=== PATIENT | male | born 1960 | race Caucasian/White ===

== ENCOUNTER 2019-04-30 08:11 | Emergency (ER) | payer SELFPAY ==
[2019-04-30 08:16] VITALS: BP 176/119; PULSE 83; RESP 18; TEMP 36.4; O2SAT 96; BMI 25.0
[2019-04-30 08:27] VITALS: BP 176/119; PULSE 81; RESP 18; O2SAT 98
--- NOTE | 2019-04-30 08:30 | PC.NURSE ---
Pt has had a rash for quite a few weeks. Pt has been treated for scabies, with no results of getting better. Today pt comes to ER d/t left ankle pain with swelling that started last night.
--- NOTE | 2019-04-30 08:32 | W.ED.EXTPRO ---
HPI - Extremity Problem General: Chief complaint: Extremity Problem,Nontraumatic Stated complaint: Left ankle pain Time Seen by Provider: 04/30/19 08:16 Source: patient Mode of arrival: ambulatory Limitations: no limitations History of Present Illness: HPI Narrative: Patient comes in with a persistent rash for the last 4 to 6 months. Patient was seen back on April 07 and diagnosed with some cellulitis in the rash on the left leg. Patient reports that it had improved and over the past few days it has been worse. Patient complains of some pain in the left lower extremity. Noting an abrasion rash to the anterior lower legs and bilateral forearms. Patient denies any drug use or chronic medical problems. Patient appears well. Patient appears in mild to moderate discomfort. Review of Systems General: Reports: 10 or more systems reviewed and unremarkable except in HPI and below Skin/Breast: Reports: itching and changing lesion PFSH ED PFSH: Statuses (acute, chronic, etc) shown below reflect problem list status as previously entered and may not be historically accurate Social History Smoking and tobacco status: current every day smoker Physical Exam Const: COMMON NORMALS: no apparent distress and oriented x3 GENERAL APPEARANCE: cooperative HENMT: COMMON NORMALS: normocephalic, external ears normal, EAC's normal, TM's normal bilaterally and external nose normal HEAD & SCALP: normal to inspection and normocephalic FACE & SINUS: normal facial exam NOSE: external nose normal GENERAL EAR: hearing not grossly impaired EXTERNAL EAR: Yes external ears normal EXTERNAL AUDITORY CANAL: EAC's normal TYMPANIC MEMBRANE: TM's normal bilaterally MOUTH: oral and palatal mucosa normal THROAT: posterior oropharynx normal Eye: COMMON NORMALS: PERRL and EOMs intact bilaterally PUPIL: Yes PERRL Neck/C-Spine: COMMON NORMALS: full ROM and no lymphadenopathy Lymph: LYMPHATIC: no lymphedema noted Chest: COMMONS NORMALS: inspection of chest normal and palpation of chest normal Resp: COMMON NORMALS: normal respiratory effort and clear to auscultation bilaterally AUSCULTATION: clear to auscultation bilaterally Cardio: COMMON NORMALS: regular rate and regular rhythm RATE: regular rate RHYTHM: regular rhythm GI: COMMON NORMALS: normal to inspection, nondistended, normoactive bowel sounds and non-tender : COMMON NORMALS: Yes no CVA tenderness BLADDER/KIDNEY EXAM: Yes no CVA tenderness Back/Pelvis: COMMON NORMALS: no CVA tenderness and thoracic and lumbar spine normal to inspection Extremity: COMMON NORMALS: normal to inspection GENERAL: No edema Neuro: COMMON NORMALS: oriented x3, moves all extremities and no focal motor deficits Psych: COMMON NORMALS: mental status grossly normal and cooperative Skin: GENERAL SKIN EXAM: lichenification RASHES: rashes noted Course Vital Signs: Vital signs: Vital Signs Temperature 97.5 F L 04/30/19 08:16 Pulse Rate 82 04/30/19 09:36 Respiratory Rate 16 04/30/19 09:36 Blood Pressure 172/106 04/30/19 09:36 Pulse Oximetry 99 04/30/19 09:36 MDM - Extremity (Nontraumatic) MDM Narrative: Medical decision making narrative: Patient comes in today for complaints of rash to the upper and lower extremities. Exam notes excoriated areas to the skin with several abrasions suggestive of scratching and picking. Some redness and swelling is noted to the left lower extremity around the ankle area. Pulses are intact prompt capillary refill is noted elsewhere. Differential diagnosis includes neurodermatitis, second cellulitis, eczema, gout, chronic liver disease, chronic kidney disease, autoimmune disorder. Laboratory values were insignificant. Gout was ruled out by uric acid of 4, white count was fairly normal. Patient does have a blood mild low sodium at 132 which the last one was 134 so very similar. CRP was normal and TSH was normal. Reviewed exam with patient I believe patient probably has a neurodermatitis or eczema we will treat for secondary cellulitis to the left lower leg. Reviewed exam with patient with recommendations for treatment and follow-up. Will ask case management to help with referral to dermatology for further evaluation if symptoms persist. Patient reports understanding and agrees to plan. Lab Data: Labs: Lab Results 04/30/19 04/30/19 Range/Units 08:48 08:48 WBC 8.8 (4.0-10.0) 10^3/ uL RBC 4.78 (4.1-5.3) 10^6/u L Hgb 13.2 (11.7-16.6) g/dL Hct 39.9 L (42.0-52.0) % MCV 83.5 (80-94) fL MCH 27.6 L (28.0-34.0) pg MCHC 33.1 (30.0-36.0) g/dL RDW 13.1 (12.1-15.1) % Plt Count 258 (130-400) 10^3/c mm MPV 9.7 (7.4-10.4) fL Neut % (Auto) 69.1 % Lymph % (Auto) 18.1 % [place] % (Auto) 10.1 % Eos % (Auto) 1.9 % Baso % (Auto) 0.6 % Neut # (Auto) 6.1 (1.8-7.7) 10^3/u L Lymph # (Auto) 1.6 (0.8-4.8) 10^3/u L [place] # (Auto) 0.9 (0.2-0.9) 10^3/u L Eos # (Auto) 0.2 (0.0-0.8) 10^3/u L Baso # (Auto) 0.1 (0.0-0.1) 10^3/u L Nucleated RBC % (a uto) 0 % Nucleated RBCs # 0.0 /100WBC Sodium 132 L (136-145) mmol/L Potassium 3.9 (3.5-5.1) mmol/L Chloride 98 (98-107) mmol/L Carbon Dioxide 23 (22-29) mmol/L Anion Gap 14.9 (5-19) BUN 17 (6-20) mg/dL Creatinine 0.9 (0.7-1.2) mg/dL GFR Calculation 86.7 L (90-130) mL/min Glucose 140 H (74-109) mg/dL Uric Acid 4.0 (3.4-7.0) mg/dL Calcium 9.7 (8.6-10.0) mg/Dl Total Bilirubin 0.3 (0.15-1.2) mg/dL AST 33 (0-40) U/L ALT 30 (0-41) U/L Alkaline Phosphata se 172 H (40-130) IU/L C-Reactive Protein 4.7 (0.0-4.9) mg/L Total Protein 8.7 (6.6-8.7) g/dL Albumin 3.9 (3.5-5.2) g/dL Globulin 4.8 H (1.3-4.6) g/dL TSH 2.46 (0.27-4.20) uIU/ mL Discharge Plan Discharge Patient Disposition: Home, Self-Care Clinical Impression: Atopic neurodermatitis Cellulitis Qualifiers: Site of cellulitis: extremity Site of cellulitis of extremity: lower extremity Laterality: left Qualified Code(s): L03.116 - Cellulitis of left lower limb Condition: Stable Prescriptions: New triamcinolone acetonide 0.1 % cream 1 applic TOPICAL BID Qty: 80 RF: 1 hydroxyzine HCl 25 mg tablet 25 mg PO Q4H PRN (Reason: itching) Qty: 60 RF: 0 Bactrim DS 800-160 mg tablet 1 tab PO BID 14 Days Qty: 28 RF: 0 prednisone 20 mg tablet 20 mg PO DAILY Qty: 14 RF: 0 Tylenol-Codeine #3 300-30 mg tablet 1 tab PO Q6H PRN (Reason: pain) Qty: 10 RF: 0 Discharge Diet: Usual diet Discharge Activity: Resume usual activity Activity Restrictions/Additional Instructions: Drink plenty of water with medication Use vaseline to skin for protectant, and comfort Cover wound with non stick dressing Do not use over the counter antibiotic ointments Take medications as directed Use acetaminophen and ibuprofen as needed for pain Follow-up with primary care in one week for recheck Case management will contact you with Dermatology appointment for further evaluation Discharge Date/Time: 04/30/19 09:37 Coding Level of Care Code ED 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
[2019-04-30] MEDS: sulfamethoxazole-trimeth DS 160-800 mg Tablet 1 TAB PO (08:44)
[2019-04-30] MEDS: dexamethasone 10 mg/mL INJ IM (08:49)
[2019-04-30] MEDS: ketorolac 30 mg/mL INJ IM (08:50)
[2019-04-30 08:54] LABS: Basophils # 0.1 10^3/uL (0.0-0.1); Basophils % 0.6 %; Eosinophils # 0.2 10^3/uL (0.0-0.8); Eosinophils % 1.9 %; Hematocrit 39.9 % (42.0-52.0); Hemoglobin 13.2 g/dL (11.7-16.6); Lymphocytes # 1.6 10^3/uL (0.8-4.8); Lymphocytes % 18.1 %; Mean Corpuscular HGB Conc 33.1 g/dL (30.0-36.0); Mean Corpuscular Hemoglobin 27.6 pg (28.0-34.0); Mean Corpuscular Volume 83.5 fL (80-94); Mean Platelet Volume 9.7 fL (7.4-10.4); Monocytes # 0.9 10^3/uL (0.2-0.9); Monocytes % 10.1 %; Neutrophils # 6.1 10^3/uL (1.8-7.7); Neutrophils % 69.1 %; Nucleated Red Blood Cells % 0 %; Platelet Count 258 10^3/cmm (130-400); Red Blood Count 4.78 10^6/uL (4.1-5.3); Red Cell Distribution Width 13.1 % (12.1-15.1); White Blood Count 8.8 10^3/uL (4.0-10.0)
--- NOTE | 2019-04-30 09:16 | PC.NURSE ---
Nurse dressed pt's rash on his lower legs with 10 vasaline gauze 3X9, and two kerlix gauze, per Oral Brewster NP.
[2019-04-30 09:19] LABS: Alanine Aminotransferase 30 U/L (0-41); Albumin Level 3.9 g/dL (3.5-5.2); Alkaline Phosphatase 172 IU/L (40-130); Anion Gap 14.9 (5-19); Aspartate Amino Transferase 33 U/L (0-40); Blood Urea Nitrogen 17 mg/dL (6-20); C Reactive Protein 4.7 mg/L (0.0-4.9); Calcium 9.7 mg/Dl (8.6-10.0); Carbon Dioxide 23 mmol/L (22-29); Chloride 98 mmol/L (98-107); Globulin 4.8 g/dL (1.3-4.6); Glomerular Filtration Rate 86.7 mL/min (90-130); Glucose 140 mg/dL (74-109); Potassium 3.9 mmol/L (3.5-5.1); Sodium 132 mmol/L (136-145); Thyroid Stimulating Hormone 2.46 uIU/mL (0.27-4.20); Total Bilirubin 0.3 mg/dL (0.15-1.2); Total Protein 8.7 g/dL (6.6-8.7)
[2019-04-30 09:36] VITALS: BP 172/106; PULSE 82; RESP 16; O2SAT 99
== END 2019-04-30 09:37 | disposition home or self-care (01) ==
PROVIDERS: Emergency Provider Nurse Practitioner Family
DX: L20.81 Atopic neurodermatitis (principal); L03.116 Cellulitis of left lower limb; F17.210 Nicotine dependence, cigarettes, uncomplicated
CPT/HCPCS: 36415; 80053; 84443; 84550; 85025; 86140; 87040; 96372; 99281; J1100; J1885

== ENCOUNTER 2019-09-25 16:43 | Emergency (ER) | payer SELFPAY ==
[2019-09-25 16:48] VITALS: BP 171/93; PULSE 70; RESP 16; TEMP 36.4; O2SAT 97; BMI 27.1
--- NOTE | 2019-09-25 17:14 | ED_ITS ---
HPI - Skin/Abscess/Foreign Bdy General: Chief complaint: Skin/Abscess/Foreign Body Stated complaint: leg pain Time Seen by Provider: 09/25/19 17:03 History of Present Illness: MD complaint: rash Onset (ago): month(s) Tetanus up to date: unsure Location: neck, back, LLE and RLE Severity: moderate Severity scale (1-10): 3 Quality: constant (Did improve with medications) Associated symptoms: Deny chills, fever(s), nausea or vomiting Review of Systems Const: Denies: fever(s), chills or body aches Eyes: Denies: change in vision or blurry vision ENMT: Denies: throat pain or nasal congestion Card: Denies: chest pain or dyspnea on exertion Resp: Denies: dyspnea, productive cough or non-productive cough GI: Denies: abdominal pain, nausea or vomiting : Denies: difficulty urinating Musc: Denies: extremity pain Skin/Breast: Reports: rash (Has a macular rash small lesions approximately 3 to 5 mm in size scattered on the lower legs middle the back neck some open and draining from the itching is done) Neuro: Denies: headache(s) Psych: Denies: anxiety or depression [place]/Lymph: Denies: easy bruising PFSH ED PFSH: Social History Smoking and tobacco status: current every day smoker Physical Exam Const: COMMON NORMALS: no acute distress, average body habitus and patient oriented x3 HENMT: COMMON NORMALS: normocephalic HEAD & SCALP: normal to inspection and normocephalic FACE & SINUS: normal facial exam Eye: COMMON NORMALS: conjunctivae normal GENERAL EYE: appearance normal, both eyes and all related structures CONJUNCTIVA: Yes conjunctivae normal Neck/C-Spine: COMMON NORMALS: no JVD Chest: COMMONS NORMALS: normal inspection of the chest Resp: COMMON NORMALS: normal respiratory effort and clear to auscultation bi laterally AUSCULTATION: clear to auscultation bilaterally Cardio: COMMON NORMALS: no JVD, regular rate and regular rhythm RATE: regular rate RHYTHM: regular rhythm GI: COMMON NORMALS: Normal to inspection, nondistended, normoactive bowel sounds present Extremity: COMMON NORMALS: normal to inspection and full ROM Neuro: COMMON NORMALS: patient oriented x3 Skin: NAILS: other (Rash described in HPI small 3 to 5 mm satellite macular lesions scattered up and on the legs with wounds on right leg draining no erythema then he has them up and down his back and middle of his spine and then also on his neck posterior aspect) Course Vital Signs: Vital signs: Vital Signs Temperature 97.5 F L 09/25/19 16:48 Pulse Rate 70 09/25/19 16:48 Respiratory Rate 16 09/25/19 16:48 Blood Pressure 171/93 09/25/19 16:48 Pulse Oximetry 97 09/25/19 16:48 Discharge Plan Discharge Patient Disposition: Home, Self-Care Clinical Impression: Atopic dermatitis Qualifiers: Atopic dermatitis type: unspecified Qualified Code(s): L20.9 - Atopic dermatitis, unspecified Condition: Stable Prescriptions: New hydroxyzine HCl 25 mg tablet 25 mg PO Q8H PRN (Reason: itching) Qty: 14 RF: 0 prednisone 20 mg tablet 20 mg PO DAILY Qty: 14 RF: 0 triamcinolone acetonide 0.1 % cream 1 applic TOPICAL BID Qty: 80 RF: 0 Bactrim DS 800-160 mg tablet 1 tab PO BID 7 Days Qty: 14 RF: 0 No Action triamcinolone acetonide 0.1 % cream 1 applic TOPICAL BID Qty: 80 RF: 1 hydroxyzine HCl 25 mg tablet 25 mg PO Q4H PRN (Reason: itching) Qty: 60 RF: 0 prednisone 20 mg tablet 20 mg PO DAILY Qty: 14 RF: 0 Tylenol-Codeine #3 300-30 mg tablet 1 tab PO Q6H PRN (Reason: pain) Qty: 10 RF: 0 Discharge Orders: Discharge Order (Routine); Ordered 09/25/19 Ordered By: Berny Gomez Discharge Diet: Usual diet Discharge Activity: Resume usual activity Patient Instructions: Stasis Dermatitis (ED) Activity Restrictions/Additional Instructions: Follow-up with medical provider as directed. Take medications as prescribed. Return to the ER or your medical provider if condition worsens. Please read and understand discharge instructions. If any questions ask please. 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
[2019-09-25 17:19] VITALS: BP 127/75; PULSE 79; RESP 16; TEMP 36.8; O2SAT 97
== END 2019-09-25 17:20 | disposition home or self-care (01) ==
PROVIDERS: Emergency Provider Nurse Practitioner Family
DX: L20.9 Atopic dermatitis, unspecified (principal); F17.210 Nicotine dependence, cigarettes, uncomplicated
CPT/HCPCS: 12345; 99281; 99282

== ENCOUNTER 2020-11-25 19:40 | Inpatient (IN) | payer MEDICAID, SELFPAY ==
[2020-11-25] VITALS (8 sets, daily range): BP systolic 119–158; BP diastolic 74–80; PULSE 84–98; RESP 20–40; TEMP 38–38.1; O2SAT 89–95; BMI 27.1
--- NOTE | 2020-11-25 20:01 | W.ED.COVID ---
HPI - COVID General: Chief Complaint: COVID symptoms Stated Complaint: Covid Symptoms Time Seen by Provider: 11/25/20 20:00 Triage information: Has fever, cough or shortness of breath. Exposure to COVID + person last 14 days History of Present Illness: HPI Narrative: Mr. Ward is a 60-year-old gentleman without significant past medical history presents to the emergency department due to Covid-like symptoms. Symptom onset was approximately 1 week ago and subacute in onset. He describes generalized aches, fevers, chills, malaise, shortness of breath, and a dry cough. His symptoms are worse with any exertion and he feels profound fatigue. Overall the intensity of symptoms is moderate to severe. The course has been worsening. He has not been vaccinated for Covid and has not been tested for Covid. He denies known sick contacts. No other specific exacerbating alleviating factors identified. He is a smoker. No major surgeries. COVID Results: SARS-CoV-2 Antigen (Rapid) Positive (Negative) H 11/25/20 20:45 11/25/20 Nasal/Oral Coronavirus 2019 PCR Pending 11/25/20 20:45 11/25/20 Review of Systems General: Reports: 10 or more systems reviewed and unremarkable except in HPI and below Narrative: CONSTITUTIONAL: Positive for fever, fatigue, weakness EYES - denies pain, denies loss of vision EARS - denies ear issues. NOSE - denies congestion or rhinorrhea. THROAT - denies sore throat or difficulty swallowing. CARDIOVASCULAR - denies chest pain and palpitations RESPIRATORY -positive for shortness of breath and cough GASTROINTESTINAL - denies abdominal pain, no nausea vomiting, no changes in bowel habits GENITOURINARY - denies dysuria or urinary frequency MUSCULOSKELETAL- denies deformity or pain SKIN - denies rashes or new changed skin lesions NEUROLOGIC - denies focal weakness or sensory changes HEMATOLOGIC/LYMPHATIC - denies easy bruising or lymphadenopathy. [facility] ED PFSH: Medical History (Updated 11/26/20 @ 12:01 by Gerry Hannah MD) GERD (gastroesophageal reflux disease) Nicotine dependence, cigarettes, uncomplicated Surgical History (Updated 11/26/20 @ 00:47 by Thu Singh MD) No pertinent past surgical history Family History (Updated 11/26/20 @ 01:04 by Thu Singh MD) Denies family history of CAD (coronary artery disease) Bleeding disorder Lung disease Social History (Updated 11/26/20 @ 01:04 by Thu Singh MD) Smoking and tobacco status: current every day smoker Alcohol intake: never Substance/Drug Use: never Household members: spouse Marital status: Physical Exam Narrative: EXAM NARRATIVE: GENERAL/CONSTITUTIONAL -moderately ill-appearing. No acute distress. Increased respiratory effort Eyes - PERRL, no conjunctival injection ENMT - Atraumatic external nose and ears. Moist mucous membranes NECK - supple. trachea midline CARDIOVASCULAR - regular rate and rhythm. Peripheral pulses 2+ and equal RESPIRATORY -coarse breath sounds to auscultation bilaterally. No retractions or accessory muscle use. ABDOMEN/GI - Nontender/Nondistended. No tenderness to percussion or evidence of peritonitis MSK - Extremities without obvious deformity or tenderness to palpation SKIN -somewhat mottled, dry NEURO - alert and appropriately oriented. strength and sensation intact. Moves all extremities equally. PSYCH - Appropriate mood and affect Course ED course: - Patient was seen and evaluated by me at bedside - Patient placed on cardiac monitors, IV access obtained - Initial evaluation notable for ill appearance, mottled skin, increased respiratory effort - Labs and imaging obtained and reviewed -Symptom treatments ordered - Labs notable for Mild leukopenia and thrombocytopenia of unclear etiology, likely related to Covid infection. CRP elevated. Procalcitonin negative. Rapid Covid testing positive. - Imaging notable for bilateral infiltrate worse in the right upper lobe - Upon serial reexamination after treatment the patient was similar, he did require heated high flow oxygen for work of breathing - Based on patient history, evaluation, labs, and imaging as interpreted the most likely cause of the patient's condition is COVID-19 with respiratory distress and hypoxemia - The results of ED evaluation were discussed with the patient including plan for admission due to requirement for level of care not available if discharged to prevent significant worsening/deterioration. -Hospitalist service contacted and agreed to admit the patient - Patient was admitted without further deterioration or significant events. Vital Signs: Vital signs: Vital Signs Temperature 97.8 F 11/27/20 12:00 Pulse Rate 79 11/27/20 14:32 Respiratory Rate 20 H 11/27/20 14:32 Blood Pressure 126/77 11/27/20 12:00 Pulse Oximetry 91 11/27/20 14:32 MDM - COVID Medical Records: Attestation: I reviewed the patient's medical records. Lab Data: Attestation: I reviewed the patient's lab results. Labs: Lab Results 11/25/20 11/25/20 11/25/20 Range/Units 20:45 21:00 21:00 WBC 3.6 L (4.0-10.0) 10^3/ uL RBC 4.91 (4.1-5.3) 10^6/u L Hgb 15.1 (11.7-16.6) g/dL Hct 44.8 (42.0-52.0) % MCV 91.2 (80-94) fl MCH 30.8 (28.0-34.0) pg MCHC 33.7 (30.0-36.0) g/dL RDW 13.7 (12.1-15.1) % Plt Count 68 L (130-400) 10^3/c mm MPV 11.0 H (7.4-10.4) fL Neut % (Auto) 65.0 % Lymph % (Auto) 28.3 % [place] % (Auto) 5.8 % Eos % (Auto) 0.0 % Baso % (Auto) 0.3 % Neut # (Auto) 2.34 (1.8-7.7) 10^3/u L Lymph # (Auto) 1.0 (0.8-4.8) 10^3/u L [place] # (Auto) 0.2 (0.2-0.9) 10^3/u L Eos # (Auto) 0.0 (0.0-0.8) 10^3/u L Baso # (Auto) 0.0 (0.0-0.1) 10^3/u L Nucleated RBC % (a uto) 0 % Nucleated RBCs # 0.0 /100WBC Sodium 133 L (136-145) mmol/L Potassium 4.5 (3.5-5.1) mmol/L Chloride 98 (98-107) mmol/L Carbon Dioxide 24 (22-29) mmol/L Anion Gap 15.5 (5-19) BUN 15 (6-20) mg/dL Creatinine 0.9 (0.7-1.2) mg/dL GFR Calculation 86.4 L (90-130) mL/min Glucose 108 (65-115) mg/dL Calculated Osmolal ity 277 L (285-295) mOsm/k g Lactic Acid (0.5-2.2) mmol/L Calcium 8.1 L (8.5-10.5) mg/dL Total Bilirubin 0.3 (0.15-1.2) mg/dL AST 67 H (0-40) U/L ALT 34 (0-41) U/L Alkaline Phosphata se 139 H (40-130) IU/L Troponin T Baselin e (0-15) ng/L Troponin T 120 Min [place] (0-15) ng/L Delta Troponin T (0-10) ABS# C-Reactive Protein 43.1 H (0.0-4.9) mg/L NT-Pro-B Natriuret Pep 31 (0-125) pg/mL Total Protein 7.7 (6.6-8.7) g/dL Albumin 3.7 (3.5-5.2) g/dL Globulin 4.0 (1.3-4.6) g/dL Procalcitonin 0.11 (0-0.5) ng/mL SARS-CoV-2 Ag (Rap id) Positive H (Negative) 11/25/20 11/25/20 11/25/20 Range/Units 21:00 21:00 23:08 WBC (4.0-10.0) 10^3/ uL RBC (4.1-5.3) 10^6/u L Hgb (11.7-16.6) g/dL Hct (42.0-52.0) % MCV (80-94) fl MCH (28.0-34.0) pg MCHC (30.0-36.0) g/dL RDW (12.1-15.1) % Plt Count (130-400) 10^3/c mm MPV (7.4-10.4) fL Neut % (Auto) % Lymph % (Auto) % [place] % (Auto) % Eos % (Auto) % Baso % (Auto) % Neut # (Auto) (1.8-7.7) 10^3/u L Lymph # (Auto) (0.8-4.8) 10^3/u L [place] # (Auto) (0.2-0.9) 10^3/u L Eos # (Auto) (0.0-0.8) 10^3/u L Baso # (Auto) (0.0-0.1) 10^3/u L Nucleated RBC % (a uto) % Nucleated RBCs # /100WBC Sodium (136-145) mmol/L Potassium (3.5-5.1) mmol/L Chloride (98-107) mmol/L Carbon Dioxide (22-29) mmol/L Anion Gap (5-19) BUN (6-20) mg/dL Creatinine (0.7-1.2) mg/dL GFR Calculation (90-130) mL/min Glucose (65-115) mg/dL Calculated Osmolal ity (285-295) mOsm/k g Lactic Acid 1.3 (0.5-2.2) mmol/L Calcium (8.5-10.5) mg/dL Total Bilirubin (0.15-1.2) mg/dL AST (0-40) U/L ALT (0-41) U/L Alkaline Phosphata se (40-130) IU/L Troponin T Baselin e 11 (0-15) ng/L Troponin T 120 Min [place] 11.19 (0-15) ng/L Delta Troponin T 0.19 (0-10) ABS# C-Reactive Protein (0.0-4.9) mg/L NT-Pro-B Natriuret Pep (0-125) pg/mL Total Protein (6.6-8.7) g/dL Albumin (3.5-5.2) g/dL Globulin (1.3-4.6) g/dL Procalcitonin (0-0.5) ng/mL SARS-CoV-2 Ag (Rap id) (Negative) EKG Data: EKG 1: Attestation: I personally reviewed and interpreted this EKG as follows: EKG interpretation date: 11/25/20 EKG interpretation time: 20:05 Prior EKG tracings: not available for review Interpretation: Twelve-lead EKG shows a regular sinus rhythm at a rate of 90. ND interval 92, QRS duration 87, QTc 407. Interpretation: Sinus rhythm. Short ND interval. EKG 2: Attestation: I personally reviewed and interpreted this EKG as follows: EKG interpretation date: 11/25/20 EKG interpretation time: 22:15 Interpretation: Twelve-lead EKG shows a regular sinus rhythm at a rate of 89. ND interval 127, QRS duration 87, QTc 418. Interpretation: Sinus rhythm. 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
--- NOTE | 2020-11-25 20:06 | XRR_ITS ---
PROCEDURE INFORMATION: Exam: XR Chest Exam date and time: 11/25/2020 8:06 PM Age: 60 years old Clinical indication: Shortness of breath; Patient HX: Covid; Additional info: SOB TECHNIQUE: Imaging protocol: XR of the chest. Views: 1 view. COMPARISON: CT Cervical Spine wo* [id number] 03/06/2015 7:40 PM FINDINGS: Lungs: Right apical opacification either related to scarring or consolidation. There is also suggestion of peripheral opacities in asymmetric volume loss of the right lung. Findings are non-specific could relate to atelectasis/scarring or multifocal consolidations. Pleural spaces: Unremarkable. No pleural effusion. No pneumothorax. Heart/Mediastinum: Unremarkable. No cardiomegaly. Bones/joints: Visualized osseous structures are intact. XR/XR chest 1V portable [id number] IMPRESSION: Asymmetric volume loss and opacifications along the periphery of the right lung in the right lung apex. Findings nonspecific and could indicate scarring/atelectasis or potentially multifocal consolidations.
--- NOTE | 2020-11-25 20:07 | ECG_ITS ---
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 Measurements Intervals [place] Rate: 90 P: -39 MN: 92 QRS: -4 QRSD: 87 T: 78 QT: 332 QTc: 407 Interpretive Statements SINUS RHYTHM WITH SHORT [place] INTERVAL POSSIBLE RIGHT VENTRICULAR CONDUCTION DELAY [RSR (QR) IN V1/V2] No previous ECG available for comparison Electronically Signed On 11-25-2020 23:59:31 CDT by Jerome Wing M.D. [id number]
[2020-11-25] MEDS: albuterol 8 gm MDI 6 PUFF INHALATION (20:50)
[2020-11-25] MEDS: lactated ringers 1,000 ML 999 ML IV (21:02)
[2020-11-25 21:17] LABS: Basophils % 0.3 %; Hematocrit 44.8 % (42.0-52.0); Hemoglobin 15.1 g/dL (11.7-16.6); Lymphocytes % 28.3 %; Mean Corpuscular HGB Conc 33.7 g/dL (30.0-36.0); Mean Corpuscular Hemoglobin 30.8 pg (28.0-34.0); Mean Corpuscular Volume 91.2 fl (80-94); Monocytes # 0.2 10^3/uL (0.2-0.9); Monocytes % 5.8 %; Neutrophils # 2.34 10^3/uL (1.8-7.7); Nucleated Red Blood Cells % 0 %; Platelet Count 68 10^3/cmm (130-400); Red Blood Count 4.91 10^6/uL (4.1-5.3); Red Cell Distribution Width 13.7 % (12.1-15.1); White Blood Count 3.6 10^3/uL (4.0-10.0)
[2020-11-25 21:37] LABS: Lactic Sepsis W/Reflex 1.3 mmol/L (0.5-2.2)
[2020-11-25 21:39] LABS: Troponin(5th) Baseline 11 ng/L (0-15)
[2020-11-25 21:47] LABS: Alanine Aminotransferase 34 U/L (0-41); Albumin Level 3.7 g/dL (3.5-5.2); Alkaline Phosphatase 139 IU/L (40-130); Anion Gap 15.5 (5-19); Aspartate Amino Transferase 67 U/L (0-40); Blood Urea Nitrogen 15 mg/dL (6-20); C Reactive Protein 43.1 mg/L (0.0-4.9); Calcium 8.1 mg/dL (8.5-10.5); Carbon Dioxide 24 mmol/L (22-29); Chloride 98 mmol/L (98-107); Glomerular Filtration Rate 86.4 mL/min (90-130); Glucose 108 mg/dL (65-115); Osmolality Calculated 277 mOsm/kg (285-295); Potassium 4.5 mmol/L (3.5-5.1); Slide Review Slide Review Perform; Sodium 133 mmol/L (136-145); Total Bilirubin 0.3 mg/dL (0.15-1.2); Total Protein 7.7 g/dL (6.6-8.7)
[2020-11-25] MEDS: acetaminophen 500 mg Tablet 1000 MG PO (21:47)
[2020-11-25 21:55] LABS: SARS Covid-2 Antigen Positive (Negative)
[2020-11-25] MEDS: ondansetron 2 mg/ML SDV 2 mL 4 MG IVP (22:04)
[2020-11-25] MEDS: morphine 4 mg/mL SDV 1 mL IVP (22:04)
--- NOTE | 2020-11-25 22:07 | ECG_ITS ---
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 Measurements Intervals [place] Rate: 89 P: -5 WV: 127 QRS: -4 QRSD: 87 T: 85 QT: 343 QTc: 418 Interpretive Statements SINUS RHYTHM POSSIBLE RIGHT VENTRICULAR CONDUCTION DELAY [RSR (QR) IN V1/V2] NONSPECIFIC T-WAVE ABNORMALITY Compared to ECG 11/25/2020 20:03:27 T-wave abnormality now present Short [place] interval no longer present Electronically Signed On 11-26-2020 0:11:15 CDT by Jerome Wing M.D. [email or web address]
--- NOTE | 2020-11-25 22:16 | PC.NURSE ---
OXYGEN INCREASED TO 4 L/NC. RESPIRATORY PAGED TO COME EVALUATE PT FOR HEATED, HI-FLOW OXYGEN PER DR SOLIS.
[2020-11-25 22:28] LABS: NT Pro B Type Natriuretic Pept 31 pg/mL (0-125)
[2020-11-25 22:56] LABS: Procalcitonin 0.11 ng/mL (0-0.5)
[2020-11-25 23:31] LABS: Troponin 5 2HR 11.19 ng/L (0-15); Troponin 5 2HR Delta 0.19 ABS# (0-10)
--- NOTE | 2020-11-25 23:33 | P.HP_ITS ---
Providers/Chief Complaint Admitting Physician: Thu Singh Primary Care Provider: none Chief Complaint: Covid Symptoms History of Present Illness Brian Ward is a 60 year old male who presented to the emergency room with chief complaint of about a week of upper respiratory symptoms and general malaise. His has had Covid and by report has recovered from it. He has had progressively worsening symptoms and today got to the point that his breathing was worse and he was having some right-sided chest pain. He admits to fevers, generalized aches and pains, headache, loss of taste and smell, nasal and chest congestion. He has been short of breath initially just with exertion but more recently at rest. Not chronically on oxygen. He is a known smoker. Reports he has not had much to smoke in the last few days, may be a week because of his symptoms. Denied any pleuritic type pain or hemoptysis. He has not received a Covid vaccination. On arrival here, he was febrile at 100.5 ?F. He was also hypoxic and oxygen saturation in the upper 80s. He was originally pl aced on oxygen by nasal cannula in the emergency room up to 4 L but ultimately transitioned to heated high flow with a flow rate of 45 L and FiO2 of 55% with improvement in his saturations. Rapid Covid antigen was positive. He is being admitted for further care of pneumonia secondary to COVID-19 necessitating high flow oxygen. Review of Systems Const: Reports: fever(s), chills, body aches, fatigue and malaise Eyes: Denies: blurry vision or eye discomfort ENMT: Reports: throat pain, nasal congestion and other (loss of taste and smell) Card: Reports: chest pain (right sided chest pain, sharp, none present during my exam), lightheadedness, dyspnea on exertion and orthopnea; Denies: palpitations, edema, syncope or acrocyanosis Resp: Reports: dyspnea, productive cough, non-productive cough and chest congestion; Denies: pain on inspiration or hemoptysis GI: Reports: nausea; Denies: abdominal pain, vomiting, hematemesis, diarrhea or constipation : Denies: urinary frequency Musc: Reports: muscle cramps and muscle weakness; Denies: neck pain, back pain, extremity pain, joint redness or joint warmth Skin/Breast: Denies: rash, pruritus or sores Neuro: Reports: headache(s), weakness in extremities (general rather than focal) and dizziness; Denies: numbness in extremities, difficulty communicating thoughts or involuntary movements Psych: Reports: anxiety (with increasing difficulty breathing) Edouard/Lymph: Denies: easy bruising or easy bleeding Medications/Allergies Home Medications Medication Instructions Recorded Confirmed Last Taken Type omeprazole magnesium [Prilosec OTC] 20 mg PO DAILY 11/25/20 11/25/20 11/25/20 History Allergies Allergy/AdvReac Type Severity Reaction Status Date / Time hydromorphone [From Dilaudid] Allergy Unresponsiv Verified 11/25/20 19:52 e PFSH Acute PFSH: Medical History (Updated 11/26/20 @ 00:47 by Thu Singh MD) GERD (gastroesophageal reflux disease) Nicotine dependence, cigarettes, uncomplicated Surgical History (Updated 11/26/20 @ 00:47 by Thu Singh MD) No pertinent past surgical history Family History (Updated 11/26/20 @ 01:04 by Thu Singh MD) Denies family history of CAD (coronary artery disease) Bleeding disorder Lung disease Social History (Updated 11/26/20 @ 01:04 by Thu Singh MD) Smoking and tobacco status: current every day smoker Alcohol intake: never Substance/Drug Use: never Household members: spouse Marital status: Vitals/I&O/Wt Last Vital Signs Temp 100.4 F H 11/25/20 22:00 Pulse 89 11/25/20 22:34 Resp 26 H 11/25/20 22:34 BP 137/74 11/25/20 22:00 Pulse Ox 93 11/25/20 22:34 11/25/20 11/25/20 11/26/20 14:59 22:59 06:59 Intake Total 1000 / 1000 Balance 1000 / 1000 Weight last 48 hrs Weight 90.718 kg Physical Exam Narrative: EXAM NARRATIVE: Constitutional: asleep, easily arousable, ill appearing HEENT: normocephalic, conjunctiva injected, clear rhinorrhea, dry membranes Neck: supple Respiratory: scattered wheezes and crackles, tachypnea, mild supraclavicular retractions Cardiovascular: regular rhythm, no murmurs Abdomen: soft, non tender, positive bowel sounds : no marte Extremities: no pitting edema, no calf tenderness, no cyanosis, early clubbing noted Skin: dry, no rashes or bruising, no petechia Neuro: face symmetric, speech clear, moves all extremities, generally weak Psych: cooperative Data : 11/25/20 21:00 11/25/20 21:00 Micro: Microbiology 11/25/20 21:00 Blood Culture - Preliminary Blood SPECIMEN COLLECTED 11/25/20 21:15 Blood Culture - Preliminary Blood SPECIMEN COLLECTED Other data: Laboratory Results WBC 3.6 10^3/uL (4.0-10.0) L 11/25/20 21:00 RBC 4.91 10^6/uL (4.1-5.3) 11/25/20 21:00 Hgb 15.1 g/dL (11.7-16.6) 11/25/20 21:00 Hct 44.8 % (42.0-52.0) 11/25/20 21:00 MCV 91.2 fl (80-94) 11/25/20 21:00 MCH 30.8 pg (28.0-34.0) 11/25/20 21:00 MCHC 33.7 g/dL (30.0-36.0) 11/25/20 21:00 RDW 13.7 % (12.1-15.1) 11/25/20 21:00 Plt Count 68 10^3/cmm (130-400) L 11/25/20 21:00 MPV 11.0 fL (7.4-10.4) H 11/25/20 21:00 Neut % (Auto) 65.0 % 11/25/20 21:00 Lymph % (Auto) 28.3 % 11/25/20 21:00 [place] % (Auto) 5.8 % 11/25/20 21:00 Eos % (Auto) 0.0 % 11/25/20 21:00 Baso % (Auto) 0.3 % 11/25/20 21:00 Neut # (Auto) 2.34 10^3/uL (1.8-7.7) 11/25/20 21:00 Lymph # (Auto) 1.0 10^3/uL (0.8-4.8) 11/25/20 21:00 [place] # (Auto) 0.2 10^3/uL (0.2-0.9) 11/25/20 21:00 Eos # (Auto) 0.0 10^3/uL (0.0-0.8) 11/25/20 21:00 Baso # (Auto) 0.0 10^3/uL (0.0-0.1) 11/25/20 21:00 Nucleated RBC % (auto) 0 % 11/25/20 21:00 Nucleated RBCs # 0.0 /100WBC 11/25/20 21:00 Sodium 133 mmol/L (136-145) L 11/25/20 21:00 Potassium 4.5 mmol/L (3.5-5.1) 11/25/20 21:00 Chloride 98 mmol/L (98-107) 11/25/20 21:00 Carbon Dioxide 24 mmol/L (22-29) 11/25/20 21:00 Anion Gap 15.5 (5-19) 11/25/20 21:00 BUN 15 mg/dL (6-20) 11/25/20 21:00 Creatinine 0.9 mg/dL (0.7-1.2) 11/25/20 21:00 GFR Calculation 86.4 mL/min (90-130) L 11/25/20 21:00 Glucose 108 mg/dL (65-115) 11/25/20 21:00 Calculated Osmolality 277 mOsm/kg (285-295) L 11/25/20 21:00 Lactic Acid 1.3 mmol/L (0.5-2.2) 11/25/20 21:00 Calcium 8.1 mg/dL (8.5-10.5) L 11/25/20 21:00 Total Bilirubin 0.3 mg/dL (0.15-1.2) 11/25/20 21:00 AST 67 U/L (0-40) H 11/25/20 21:00 ALT 34 U/L (0-41) 11/25/20 21:00 Alkaline Phosphatase 139 IU/L (40-130) H 11/25/20 21:00 Troponin T Baseline 11 ng/L (0-15) 11/25/20 21:00 Troponin T 120 Minute 11.19 ng/L (0-15) 11/25/20 23:08 Delta Troponin T 0.19 ABS# (0-10) 11/25/20 23:08 C-Reactive Protein 43.1 mg/L (0.0-4.9) H 11/25/20 21:00 NT-Pro-B Natriuret Pep 31 pg/mL (0-125) 11/25/20 21:00 Total Protein 7.7 g/dL (6.6-8.7) 11/25/20 21:00 Albumin 3.7 g/dL (3.5-5.2) 11/25/20 21:00 Globulin 4.0 g/dL (1.3-4.6) 11/25/20 21:00 Procalcitonin 0.11 ng/mL (0-0.5) 11/25/20 21:00 SARS-CoV-2 Ag (Rapid) Positive (Negative) H 11/25/20 20:45 Impressions Chest X-Ray 11/25/20 20:06 IMPRESSION: Asymmetric volume loss and opacifications along the periphery of the right lung in the right lung apex. Findings nonspecific and could indicate scarring/atelectasis or potentially multifocal consolidations. A&P Assessment and plan (1) Pneumonia due to COVID-19 virus: Dexamethasone started 11/26 Remdesivir started 11/26 Consider Actemra pending reevaluation in the morning Oxygen therapy as needed to maintain saturations - HHF 45L, 55% FIO2 at admission Respiratory therapy to follow Advair, spiriva, albuterol Fluttter/Incentive spirometer Check d dimer, fibrinogen, PT, PTT, ferritin, CK, LDH CRP 43.1 Pro calcitonin 0.11 Lactic Acid 1.3 BNP 31 Baseline Trop 11 Sputum gram stain and culture ordered 11/26 Blood cultures collected 11/25 PCR testing is pending CTA has not yet been performed Leukopenia and thrombocytompenia present at admission Vitamin C, vitamin D, zinc Status: Acute (2) Thrombocytopenia: Most likely related to viral process, is on PPI outpatient, denies alcohol use Platelets 67 on 11/25 Status: Acute (3) COVID-19 vaccine dose not administered: Status: Acute (4) Nicotine dependence, cigarettes, uncomplicated: Has not smoked in a week or so due to respiratory symptoms Nicotine patch as needed Status: Chronic Additional A&P Information Inpatient admission SCD for DVT prophylaxis currently Only home medication is OTC PPI, continued PPI for now Supportive care otherwise Currently anticipate discharge home, possibly with oxygen therapy, however it will ultimately depend on clinical course also with covid though is recovering well at home by report Findings, concerns and plans, including treatment with Remdesivir were discussed, given an opportunity to ask questions Full code Attestations Medical Necessity Statement*: Anticipate stay greater than 2 midnights in patient with covid, requiring oxygen and other care as noted above. At high risk of rapid clinical decline for reasons noted above. Coding Level of Care Code Acute Oncology Social Work for [facility] Fwd Diagnoses Pneumonia due to COVID-19 virus U07.1; J12.82 Thrombocytopenia D69.6 COVID-19 vaccine dose not administered Z28.9 Nicotine dependence, cigarettes, uncomplicated F17.210
[2020-11-26] VITALS (14 sets, daily range): BP systolic 103–132; BP diastolic 63–82; PULSE 57–85; RESP 18–28; TEMP 36.2–37.9; O2SAT 93–99
[2020-11-26] MEDS: dexamethasone 4 mg/mL INJ 6 MG IVP ×2 (01:46→23:34)
[2020-11-26] MEDS: nicotine 14 mg Patch 1 PATCH TRANSDERMA (01:47)
[2020-11-26] MEDS: remdesivir 200 MG in sodium chloride 0.9% (100 ml) 100 ML 100 MG IV (01:48)
[2020-11-26 04:23] LABS: Hematocrit 39.4 % (42.0-52.0); Hemoglobin 13.2 g/dL (11.7-16.6); Lymphocytes # 0.6 10^3/uL (0.8-4.8); Lymphocytes % 15.8 %; Mean Corpuscular HGB Conc 33.5 g/dL (30.0-36.0); Mean Corpuscular Hemoglobin 30.6 pg (28.0-34.0); Mean Corpuscular Volume 91.4 fl (80-94); Mean Platelet Volume 11.3 fL (7.4-10.4); Monocytes # 0.3 10^3/uL (0.2-0.9); Monocytes % 7.6 %; Nucleated Red Blood Cells % 0 %; Platelet Count 56 10^3/cmm (130-400); Red Blood Count 4.31 10^6/uL (4.1-5.3); Red Cell Distribution Width 13.8 % (12.1-15.1); White Blood Count 3.6 10^3/uL (4.0-10.0)
[2020-11-26 04:41] LABS: INR 0.94 (0.8-1.2)
[2020-11-26 04:42] LABS: Partial Thromboplastin Time 37.9 SECONDS (23.9-36.7)
[2020-11-26 04:43] LABS: Fibrinogen 541 mg/dL (174-498)
[2020-11-26 04:45] LABS: D Dimer 2.34 ug/mIFEU (0-0.59)
[2020-11-26 04:48] LABS: Creatine Phosphokinase 124 U/L (39-308); Troponin 5 6HR 12.47 ng/L (0-15); Troponin 5 6HR Delta 1.47 ng/L (0-12)
[2020-11-26 04:49] LABS: Alanine Aminotransferase 29 U/L (0-41); Albumin Level 2.8 g/dL (3.5-5.2); Alkaline Phosphatase 109 IU/L (40-130); Aspartate Amino Transferase 68 U/L (0-40); Blood Urea Nitrogen 15 mg/dL (6-20); C Reactive Protein 43.4 mg/L (0.0-4.9); Calcium 7.7 mg/dL (8.5-10.5); Carbon Dioxide 23 mmol/L (22-29); Chloride 101 mmol/L (98-107); Glomerular Filtration Rate 86.4 mL/min (90-130); Glucose 110 mg/dL (65-115); Osmolality Calculated 279 mOsm/kg (285-295); Phosphorus 3.3 mg/dL (2.5-4.5); Sodium 134 mmol/L (136-145); Total Bilirubin 0.4 mg/dL (0.15-1.2); Total Protein 6.8 g/dL (6.6-8.7)
[2020-11-26 04:51] LABS: Anion Gap 14.4 (5-19); Potassium 4.4 mmol/L (3.5-5.1)
[2020-11-26 05:11] LABS: Ferritin 1592 ng/mL (30-400); Lactate Dehydrogenase 648 U/L (135-225)
--- NOTE | 2020-11-26 07:52 | USR_ITS ---
PROCEDURE INFORMATION: Exam: US Duplex Lower Extremity Veins, Bilateral Exam date and time: 11/26/2020 7:52 AM Age: 60 years old Clinical indication: Swelling (edema) of limb; Lower extremity, bilateral; Additional info: Dv TECHNIQUE: Imaging protocol: Real-time duplex ultrasound of the extremities with 2-D grossman scale, color Doppler flow and spectral waveform analysis with image documentation. Complete exam focused on the bilateral lower extremity veins. COMPARISON: [facility] Test[facility] [id number] 05/07/2015 8:43 PM FINDINGS: Right deep veins: Unremarkable. The common femoral, femoral, proximal profunda femoral, popliteal, posterior tibial and peroneal veins are patent without thrombus. Normal Doppler waveforms. Normal compressibility and/or augmentation response. Right superficial veins: Saphenofemoral junction is patent without thrombus. Left deep veins: Unremarkable. The common femoral, femoral, proximal profunda femoral, popliteal, posterior tibial and peroneal veins are patent without thrombus. Normal Doppler waveforms. Normal compressibility and/or augmentation response. Left superficial veins: Saphenofemoral junction is patent without thrombus. Soft tissues: Unremarkable. US/CV venous duplex [facility] [id number] IMPRESSION: No sonographic evidence of deep vein thrombosis.
--- NOTE | 2020-11-26 07:52 | CT_ITS ---
WS: [id number] CT CHEST ANGIOGRAPHY WITH REFORMATS HISTORY: PE TECHNIQUE: Contiguous axial images are obtained through the chest during arterial injection of intrav enous contrast. Images are reconstructed to evaluate the pulmonary arteries. MIP imaging also reviewe d. All CT scans at [facility] use at least one of these dose optimization techniques: aut omated exposure control; mA and/or kV adjustment per patient size (includes targeted exams where dose is matched to clinical indication); or iterative reconstruction. CONTRAST: Omnipaque 350; 95 mL IV. DLP: 582.92 mGy.cm COMPARISON: None available. No filling defects in the pulmonary arteries. Normal size pulmonary artery. Mild atherosclerosis aort a with no aneurysm. Mild enlargement of LEFT heart chambers with no RIGHT heart strain. No pericardia l or pleural effusions. Extensive groundglass areas of consolidation and increasing consolidations throughout all lobes. Cons istent with history of Covid 19. No pneumothorax. No pneumomediastinum. Reactive lymphadenopathy thro ughout the mediastinum and hilar regions with the lymph nodes measuring up to 13 mm. Small hiatal her britany. No adrenal mass. Visualized upper abdomen is negative. 50% T8 compression fracture. CT/CT angio chest PE protcl [id number] IMPRESSION: 1. No pulmonary embolism. 2. Multi lobar consolidations consistent with Covid 19. 3. Reactive mediastinal and hilar lymphadenopathy. 4. Mild LEFT heart enlargement.
[2020-11-26] MEDS: ascorbic acid 500 mg Tablet 1000 MG PO ×2 (09:08→17:38)
[2020-11-26] MEDS: zinc gluconate 50 mg Tablet PO (09:08)
[2020-11-26] MEDS: enoxaparin 100 mg/mL Syringe 90 MG SUBCUT (09:08)
[2020-11-26] MEDS: pantoprazole DR 40 mg Tablet PO (09:08)
[2020-11-26] MEDS: cholecalciferol (vitamin D3) 1,000 unit Tablet 2000 UNIT PO (09:08)
[2020-11-26] MEDS: iohexol 350 mg/mL 100 mL Btl IV (09:22)
--- NOTE | 2020-11-26 09:23 | PC.CHAP ---
Pastoral Care Encounter/Spiritual Assessment Type of Contact [] Declined regional psychiatric director visit [] Patient/Family/Request visit [] Outpatient visit [] Follow-up visit [] Physician referral [] Code/Alert [x] Routine visit [] Staff referral [] Actively dying [] Patient sleeping [] Family support [] [] Out of room [] Palliative care [] [] Receiving care in room [] Pre-surgical visit [] Trauma [] Long length of stay [] ICU visit [x] Other:2a Relational/Emotional Strength [] Patient feels connected with others/family/visitors/staff [] Distress [] Loneliness/isolation [] Abandonment Spirituality of Patient [] Person of Jazmine [] Attends Gnosticist of their Jazmine [] Believes in Prayer [] Reads Bible or Buddhism materials [] There are Spiritual issues to be addressed Extractor Operator Helper Interventions [x] Prayer [] Active listening [] Non-anxious presence [] Spiritual/emotional support [] Crisis/trauma care [] Spiritual counseling [] Bereavement support [] Provided bereavement packet [] Provided Bible/devotional materials [] Provided toy/stuffed animal, coloring book to patient or family member [] Provided Communion [] Anointing/[place] [] Salvation [x] Completed spiritual assessment [] Other: Impact on Illness or Injury [] Angry [] Fearful [] Anxious [] Often cries [] Exhaustion [] Unable to work [] Unable to attend rastafari [] Unable to walk/stand [] Unable to read [] Unable to drive [] Unable to eat/drink [] Unable to sleep [] Unable to be with family [] Patient intubated [] Other: Summary Time spent with patient
--- NOTE | 2020-11-26 11:57 | P.PN_ITS ---
Subjective Subjective: Interval history: Patient was seen and examined in the Covid unit, his oxygen requirement was decreased today he was on 30 L, 30% heated high flow saturating 92% he had breakfast tray in front of him however looked extreme lethargic and tired was endorsing anorexia He was able to stand up his is sick but not on oxygen at home H&P and labs reviewed Secondary to high D-dimer CTA chest was requested which showed no sign of pulmonary embolism COVID-19 related bilateral consolidations hilar lymphadenopathy and left heart enlargement Vitals/I&O/Wt Last Vital Signs Temp 98.4 F 11/26/20 08:00 Pulse 57 L 11/26/20 08:00 Resp 20 H 11/26/20 08:00 BP 131/74 11/26/20 08:00 Pulse Ox 98 11/26/20 08:00 11/25/20 11/26/20 11/26/20 22:59 06:59 14:59 Intake Total 1000 / 1000 100 / 1100 240 / 240 Output Total 300 / 300 350 / 350 Balance 1000 / 1000 -200 / 800 -110 / -110 Weight last 48 hrs Weight 90.718 kg Physical Exam Narrative: EXAM NARRATIVE: male who appears more than stated age Extremely tired tachypneic in 20s Heated high flow 30 L, 30% saturating 92% S1, S2 Abdomen soft Low symmetry no edema Rhonchi, diffuse EOMI, PERRLA No active neurological deficit Data : 11/26/20 03:30 11/26/20 03:30 Micro: Microbiology 11/25/20 21:00 Blood Culture - Preliminary Blood SPECIMEN COLLECTED 11/25/20 21:15 Blood Culture - Preliminary Blood SPECIMEN COLLECTED A&P Assessment and plan (1) Acute respiratory failure with hypoxia: Status: Acute (2) Sepsis: Status: Acute (3) Thrombocytopenia: Status: Acute (4) Nicotine dependence, cigarettes, uncomplicated: Status: Chronic (5) COVID-19 vaccine dose not administered: Status: Acute (6) Pneumonia due to COVID-19 virus: Status: Acute Additional A&P Information Sepsis secondary to COVID-19 pneumonia Criteria met for leukopenia, tachypnea, I would not give him fluids secondary to COVID-19 ARDS Procalcitonin unremarkable, I would not add antibiotics at this point he has stayed afebrile We will request sputum sample, bacterial antigen requested by Dr. Singh Blood cultures taken in the ER Acute hypoxia related to COVID-19 pneumonia His symptoms started roughly 2 weeks ago, can end quarantine after 20-day Currently on 30 L 30% heated high flow CTA rule out PE Venous Dopplers pending With remdesivir watch for bradycardia hypotension however he has stayed hemodynamically stable I would continue remdesivir for now and watch monitor closely Continue zinc, vitamin C & D supplementation Anorexia with lethargy and fatigue Secondary to systemic lab response to viremia I would not add mirtazapine as she looks very lethargic it might add more sedation Chronic thrombocytopenia: Platelets stable, no active bleeding DVT prophylaxis Would use 40 mg subcutaneous now onwards and watch platelets closely he was given 90 mg before CTA secondary to high D-dimer considering hypercoagulable state of COVID-19 viremia and sepsis I would like to keep him on prophylactic regimen for now Regular diet Full code Respiratory therapist updated Attestations Medical Necessity Statement*: Continue above-mentioned management Time Spent in Patient Care: less than 15 minutes Coding Level of Care Code Acute Shot Coat Tender for [facility] Fwd Diagnoses Acute respiratory failure with hypoxia J96.01 Sepsis A41.9 Thrombocytopenia D69.6 Nicotine dependence, cigarettes, uncomplicated F17.210 COVID-19 vaccine dose not administered Z28.9 Pneumonia due to COVID-19 virus U07.1; J12.82
--- NOTE | 2020-11-26 16:40 | PC.NURSE ---
pt received lovenox 90mg this morning, physician ordered to start 40mg lovenox as prophylaxis tomorrow.
--- NOTE | 2020-11-26 16:41 | PC.NURSE ---
Shift Note Frequent safety and comfort rounds continue. Orders and/or nursing care completed as indicated. Patient monitored for response to intervention and treatment(s). Education provided includes medication, treatment plan, sign and symptoms, deep breathing and coughing. Patient and/or public utilities sales representative responsive and verbalizes education. Will continue to monitor.
--- NOTE | 2020-11-26 17:52 | PC.RESP ---
RT Shift Note Frequent safety and respiratory rounds continue. Orders completed as indicated. Patient monitored pre and post treatments throughout shift. Patient tolerated treatments appropriately. Condition did not change. Patient and/or parts counter representative educated on respiratory treatment and medications. Patient and/or parts counter representative verbalized understanding. Will continue to monitor patient progress.
--- NOTE | 2020-11-26 23:05 | PC.RESP ---
RT Shift Note Frequent safety and respiratory rounds continue. Orders completed as indicated. Patient monitored pre and post treatments throughout shift. Patient [Did.] tolerate treatments appropriately. Condition [Improved]. Patient and/or containers sales representative educated on respiratory treatment and medications. Patient and/or containers sales representative was veryy good about rinsing after administration of advair]. Will continue to monitor patient progress.
[2020-11-27] VITALS (15 sets, daily range): BP systolic 121–143; BP diastolic 72–83; PULSE 56–79; RESP 18–32; TEMP 36.2–36.9; O2SAT 76–96
[2020-11-27 05:15] LABS: Hematocrit 40.6 % (42.0-52.0); Hemoglobin 13.5 g/dL (11.7-16.6); Lymphocytes # 0.7 10^3/uL (0.8-4.8); Lymphocytes % 9.2 %; Mean Corpuscular HGB Conc 33.3 g/dL (30.0-36.0); Mean Corpuscular Hemoglobin 30.6 pg (28.0-34.0); Mean Corpuscular Volume 92.1 fl (80-94); Mean Platelet Volume 11.1 fL (7.4-10.4); Monocytes # 0.4 10^3/uL (0.2-0.9); Monocytes % 5.2 %; Neutrophils # 6.42 10^3/uL (1.8-7.7); Neutrophils % 85.1 %; Nucleated Red Blood Cells % 0 %; Platelet Count 66 10^3/cmm (130-400); Red Blood Count 4.41 10^6/uL (4.1-5.3); Red Cell Distribution Width 13.6 % (12.1-15.1); White Blood Count 7.5 10^3/uL (4.0-10.0)
[2020-11-27] MEDS: remdesivir 100 MG in sodium chloride 0.9% (100 ml) 100 ML IV (05:30)
[2020-11-27 05:35] LABS: Anion Gap 12.3 (5-19); Blood Urea Nitrogen 18 mg/dL (6-20); C Reactive Protein 34.8 mg/L (0.0-4.9); Calcium 8.2 mg/dL (8.5-10.5); Carbon Dioxide 24 mmol/L (22-29); Chloride 101 mmol/L (98-107); Creatinine Clr Calc Pharmacy 133.1473; Glomerular Filtration Rate 115.4 mL/min (90-130); Glucose 174 mg/dL (65-115); Osmolality Calculated 282 mOsm/kg (285-295); Potassium 4.3 mmol/L (3.5-5.1); Sodium 133 mmol/L (136-145)
[2020-11-27] MEDS: cholecalciferol (vitamin D3) 1,000 unit Tablet 2000 UNIT PO (07:33)
[2020-11-27] MEDS: zinc gluconate 50 mg Tablet PO (07:33)
[2020-11-27] MEDS: pantoprazole DR 40 mg Tablet PO (07:33)
[2020-11-27] MEDS: ascorbic acid 500 mg Tablet 1000 MG PO ×2 (07:33→16:59)
--- NOTE | 2020-11-27 12:26 | P.PN_ITS ---
Subjective Subjective: Interval history: visited him yesterday, no overnight events, patient has been able to eat 50% of his meals, he was asking today if he can go home but unfortunately he is still requiring heated high flow 30 L 40% oxygen, He is endorsing improvement in his energy No diarrhea, chest pain or shortness of breath No fever Asked Respiratory therapist to titrate oxygen Not a candidate of interleukin-6 inhibitor, thrombocytopenia, CRP has not been worsening, oxygen requirement not worsening No DVT or PE Vitals/I&O/Wt Last Vital Signs Temp 97.8 F 11/27/20 11:52 Pulse 62 11/27/20 11:52 Resp 26 H 11/27/20 11:52 BP 126/77 11/27/20 11:52 Pulse Ox 91 11/27/20 11:52 11/26/20 11/27/20 11/27/20 22:59 06:59 14:59 Intake Total 118 / 598 100 / 698 Output Total 750 / 1100 900 / 900 Balance 118 / 248 -650 / -402 -900 / -900 Weight last 48 hrs Weight 90.718 kg Physical Exam Narrative: EXAM NARRATIVE: Very pleasant male laying comfortably in his bed Does experience dry cough spells S1, S2 sinus rhythm Crepitation noted on inspiration and expiration Bilateral rhonchi noted as well Mild tachypnea Abdomen soft Lower extremity no edema Clinically looks euvolemic No neurological deficits Data : 11/27/20 04:24 11/27/20 04:24 Micro: Microbiology 11/25/20 21:00 Blood Culture - Preliminary Blood NEGATIVE TO DATE 11/25/20 21:15 Blood Culture - Preliminary Blood NEGATIVE TO DATE 11/26/20 05:00 Bacterial Antigens - Final Urine,Voided A&P Assessment and plan (1) Sepsis: Status: Acute (2) Acute respiratory failure with hypoxia: Status: Acute (3) Thrombocytopenia: Status: Acute (4) Nicotine dependence, cigarettes, uncomplicated: Status: Chronic (5) COVID-19 vaccine dose not administered: Status: Acute (6) Pneumonia due to COVID-19 virus: Status: Acute Additional A&P Information Sepsis Sepsis resolved White count 7.5 he has been afebrile Cultures negative Acute hypoxia Related to COVID-19 Currently on 30% 30 L heated high flow, I have asked respiratory therapist to w gifty his oxygen down further and try nasal cannula or nonrebreather today Continue remdesivir and Decadron Inflammatory markers every 48 hours I do believe we can continue remdesivir his bradycardia has improved Continue multivitamins, zinc Anorexia with fatigue Related to COVID-19 viremia I would not add any appetite stimulant as they have side effect of sedation Patient is able to finish 50 to 60% of his meals Chronic thrombocytopenia Stable at 66 no active bleeding DVT Lovenox, Full code Regular diet Interleukin-6 inhibitor contraindicated due to thrombocytopenia Discussed disposition goal: Once his O2 saturation is between 89-91% on 4 to 5 L nasal cannula, plan for discharge home at that point, for now his oxygen requirement has not been worsening, inflammatory markers trending down Attestations Medical Necessity Statement*: Continue medical management wean off oxygen Time Spent in Patient Care: 16 - 35 minutes Coding Level of Care Code Acute Government Services Professional for [facility] Fwd Diagnoses Sepsis A41.9 Acute respiratory failure with hypoxia J96.01 Thrombocytopenia D69.6 Nicotine dependence, cigarettes, uncomplicated F17.210 COVID-19 vaccine dose not administered Z28.9 Pneumonia due to COVID-19 virus U07.1; J12.82
[2020-11-27] MEDS: enoxaparin 40 mg/0.4 mL Syringe SUBCUT (14:14)
--- NOTE | 2020-11-27 17:49 | PC.RESP ---
RT Shift Note Frequent safety and respiratory rounds continue. Orders completed as indicated. Patient monitored pre and post treatments throughout shift. Patient tolerated treatments appropriately. Condition improved. Patient and/or medical center representative educated on respiratory treatment and medications. Patient and/or medical center representative verbalized understanding of education topics. Will continue to monitor patient progress.
[2020-11-28] VITALS (14 sets, daily range): BP systolic 113–150; BP diastolic 77–90; PULSE 54–85; RESP 12–90; TEMP 36.4–36.8; O2SAT 88–93
[2020-11-28] MEDS: dexamethasone 4 mg/mL INJ 6 MG IVP (01:26)
[2020-11-28] MEDS: ondansetron 2 mg/ML SDV 2 mL 4 MG IVP (02:01)
[2020-11-28 05:17] LABS: Basophils % 0.2 %; Hematocrit 39.2 % (42.0-52.0); Hemoglobin 13.1 g/dL (11.7-16.6); Lymphocytes # 0.8 10^3/uL (0.8-4.8); Mean Corpuscular HGB Conc 33.4 g/dL (30.0-36.0); Mean Corpuscular Hemoglobin 30.5 pg (28.0-34.0); Mean Corpuscular Volume 91.2 fl (80-94); Mean Platelet Volume 11.2 fL (7.4-10.4); Monocytes # 0.6 10^3/uL (0.2-0.9); Monocytes % 5.3 %; Neutrophils # 10.01 10^3/uL (1.8-7.7); Nucleated Red Blood Cells % 0 %; Platelet Count 65 10^3/cmm (130-400); Red Cell Distribution Width 13.6 % (12.1-15.1); White Blood Count 11.5 10^3/uL (4.0-10.0)
[2020-11-28 05:39] LABS: Anion Gap 16.2 (5-19); Blood Urea Nitrogen 18 mg/dL (6-20); C Reactive Protein 11.2 mg/L (0.0-4.9); Calcium 8.4 mg/dL (8.5-10.5); Carbon Dioxide 23 mmol/L (22-29); Chloride 98 mmol/L (98-107); Glomerular Filtration Rate 137.9 mL/min (90-130); Glucose 156 mg/dL (65-115); Osmolality Calculated 281 mOsm/kg (285-295); Potassium 4.2 mmol/L (3.5-5.1); Sodium 133 mmol/L (136-145)
[2020-11-28 05:46] LABS: Creatinine Clr Calc Pharmacy 155.3385
[2020-11-28 06:25] LABS: Slide Review Slide Review Perform
[2020-11-28] MEDS: remdesivir 100 MG in sodium chloride 0.9% (100 ml) 100 ML IV (07:16)
[2020-11-28] MEDS: pantoprazole DR 40 mg Tablet PO (09:35)
[2020-11-28] MEDS: ascorbic acid 500 mg Tablet 1000 MG PO ×2 (09:35→17:27)
[2020-11-28] MEDS: cholecalciferol (vitamin D3) 1,000 unit Tablet 2000 UNIT PO (09:35)
[2020-11-28] MEDS: zinc gluconate 50 mg Tablet PO (09:35)
--- NOTE | 2020-11-28 11:20 | XR_ITS ---
WS: [id number] Portable AP upright chest, 11/28/2020 Clinical Data: hiccups Comparison: Portable chest, 11/25/2020. Findings: The bilateral patchy opacities involving mostly the upper lobes have not changed. The heart is normal. No pneumothorax is seen. The aortic arch shows tortuosity. Monitor leads are on the chest wall. XR/XR chest 1V portable [id number] Impression: No change in patchy bilateral pulmonary opacities.
--- NOTE | 2020-11-28 11:22 | XR_ITS ---
WS: [id number] KUB, AP view, 11/28/2020 Clinical Data: hiccups Comparison: None. Findings: No abnormal intraabdominal masses or calcifications are seen. There is no dilatated small bowel or ev idence of obstruction. There is a large amount of fecal material throughout the colon. There is air in the stomach. The blad josette is partly full. XR/XR KUB portable [id number] Impression: Large amount of fecal material throughout the colon.
[2020-11-28] MEDS: enoxaparin 40 mg/0.4 mL Syringe SUBCUT (12:21)
--- NOTE | 2020-11-28 14:24 | P.PN_ITS ---
Subjective Subjective: Interval history: This morning patient was examined, he denies any fevers, has a cough, has shortness of breath, also complaining of intractable hiccups for the last 2 days, no nausea, no vomiting, no headache, blurry vision, no chest pain Vitals/I&O/Wt Last Vital Signs Temp 97.5 F L 11/28/20 11:57 Pulse 56 L 11/28/20 11:57 Resp 21 H 11/28/20 11:57 BP 150/85 11/28/20 11:57 Pulse Ox 90 11/28/20 11:57 11/27/20 11/28/20 11/28/20 22:59 06:59 14:59 Intake Total 360 / 840 760 / 760 Output Total 550 / 1450 600 / 2050 700 / 700 Balance -190 / -610 -600 / -1210 60 / 60 Physical Exam Const: COMMON NORMALS: no acute distress and patient oriented x3 Resp: COMMON NORMALS: normal respiratory effort, No retractions and No use of accessory muscles AUSCULTATION: wheezes Cardio: COMMON NORMALS: regular rate, regular rhythm, S1 normal heart sound present, S2 normal heart sound present and No murmurs present (Cardio) RATE: regular rate RHYTHM: regular rhythm HEART SOUNDS: S1 normal heart sound present and S2 normal heart sound present GI: COMMON NORMALS: Normal to inspection, nondistended, normoactive bowel sounds present, Soft to palpation and non-tender PALPATION: Yes Soft to palpation Extremity: COMMON NORMALS: no pedal edema Neuro: COMMON NORMALS: patient oriented x3 Data : 11/28/20 04:07 11/28/20 04:07 A&P Assessment and plan (1) Sepsis: Status: Acute (2) Acute respiratory failure with hypoxia: Status: Acute (3) Thrombocytopenia: Most likely related to viral process, is on PPI outpatient, denies alcohol use Platelets 67 on 11/25 Status: Acute (4) Nicotine dependence, cigarettes, uncomplicated: Has not smoked in a week or so due to respiratory symptoms Nicotine patch as needed Status: Chronic (5) COVID-19 vaccine dose not administered: Status: Acute (6) Pneumonia due to COVID-19 virus: Dexamethasone started 11/26 Remdesivir started 11/26 Consider Actemra pending reevaluation in the morning Oxygen therapy as needed to maintain saturations - HHF 45L, 55% FIO2 at admission Respiratory therapy to follow Advair, spiriva, albuterol Fluttter/Incentive spirometer Check d dimer, fibrinogen, PT, PTT, ferritin, CK, LDH CRP 43.1 Pro calcitonin 0.11 Lactic Acid 1.3 BNP 31 Baseline Trop 11 Sputum gram stain and culture ordered 11/26 Blood cultures collected 11/25 PCR testing is pending CTA has not yet been performed Leukopenia and thrombocytompenia present at admission Vitamin C, vitamin D, zinc Status: Acute Additional A&P Information Sepsis Sepsis resolved White count 11.5, afebrile Cultures negative Acute hypoxia Related to COVID-19 Currently on 30% 30 L heated high flow, I have asked respiratory therapist to wean his oxygen down further and try nasal cannula or nonrebreather today Continue remdesivir and Decadron Inflammatory markers every 48 hours Monitor for bradycardia Continue multivitamins, zinc Anorexia with fatigue Related to COVID-19 viremia I would not add any appetite stimulant as they have side effect of sedation Patient is able to finish 50 to 60% of his meals Chronic thrombocytopenia Stable at 66 no active bleeding We will get acute hep panel, HIV, liver ultrasound, peripheral smear Intractable hiccups, will get chest x-ray, KUB, the start Thorazine DVT Lovenox, Full code Regular diet Interleukin-6 inhibitor contraindicated due to thrombocytopenia Discussed disposition goal: Once his O2 saturation is between 89-91% on 4 to 5 L nasal cannula, plan for discharge home at that point, for now his oxygen requirement has not been worsening, inflammatory markers trending down Plan for today, continue remdesivir, continue steroids, control hiccups, further evaluation of thrombocytopenia Attestations Medical Necessity Statement*: Patient requires hospitalization for acute respiratory failure secondary to COVID-19 pneumonia Coding Level of Care Code 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
[2020-11-28] MEDS: polyethylene glycol 3350 Pkt 17 gm PO (14:39)
[2020-11-28 15:59] LABS: HIV 1 & 2 Antibody Non-Reactive (Non-Reactiv); HIV 1 & 2 Antigen Non-Reactive (Non-Reactiv)
[2020-11-28 16:07] LABS: LAB Peripheral Smear Sent for Review
[2020-11-28 16:08] LABS: Hepatitis A Antibody IgM Non-Reactive (Nonreactive); Hepatitis B Core IgM Non-Reactive (Nonreactive); Hepatitis B Surface Antigen Non-Reactive (Nonreactive); Hepatitis C Virus Antibody Reactive (Nonreactive)
[2020-11-28 16:40] LABS: Coronavirus Test Green County Detected
[2020-11-28] MEDS: docusate sodium 100 mg Capsule PO (17:27)
[2020-11-29] VITALS (15 sets, daily range): BP systolic 125–153; BP diastolic 64–93; PULSE 44–62; RESP 18–36; TEMP 36.3–36.8; O2SAT 90–95
[2020-11-29] MEDS: dexamethasone 4 mg/mL INJ 6 MG IVP ×2 (00:59→23:22)
[2020-11-29 05:36] LABS: Basophils % 0.2 %; Hematocrit 37.7 % (42.0-52.0); Lymphocytes # 0.9 10^3/uL (0.8-4.8); Lymphocytes % 8.4 %; Mean Corpuscular HGB Conc 34.5 g/dL (30.0-36.0); Mean Corpuscular Hemoglobin 31.3 pg (28.0-34.0); Mean Corpuscular Volume 90.8 fl (80-94); Mean Platelet Volume 11.5 fL (7.4-10.4); Monocytes # 0.5 10^3/uL (0.2-0.9); Monocytes % 5.1 %; Neutrophils # 8.86 10^3/uL (1.8-7.7); Neutrophils % 85.6 %; Nucleated Red Blood Cells % 0 %; Platelet Count 65 10^3/cmm (130-400); Red Blood Count 4.15 10^6/uL (4.1-5.3); Red Cell Distribution Width 13.3 % (12.1-15.1); White Blood Count 10.4 10^3/uL (4.0-10.0)
[2020-11-29 05:58] LABS: Procalcitonin 0.07 ng/mL (0-0.5)
[2020-11-29 06:01] LABS: Alanine Aminotransferase 32 U/L (0-41); Alkaline Phosphatase 128 IU/L (40-130); Anion Gap 14.5 (5-19); Aspartate Amino Transferase 43 U/L (0-40); Blood Urea Nitrogen 18 mg/dL (6-20); C Reactive Protein 5.5 mg/L (0.0-4.9); Calcium 8.2 mg/dL (8.5-10.5); Carbon Dioxide 23 mmol/L (22-29); Chloride 102 mmol/L (98-107); Globulin 3.8 g/dL (1.3-4.6); Glomerular Filtration Rate 137.9 mL/min (90-130); Glucose 173 mg/dL (65-115); Osmolality Calculated 286 mOsm/kg (285-295); Phosphorus 2.5 mg/dL (2.5-4.5); Potassium 4.5 mmol/L (3.5-5.1); Sodium 135 mmol/L (136-145); Total Bilirubin 0.4 mg/dL (0.15-1.2); Total Protein 6.8 g/dL (6.6-8.7)
[2020-11-29 06:03] LABS: Creatinine Clr Calc Pharmacy 155.3385
[2020-11-29 06:12] LABS: Creatine Phosphokinase 60 U/L (39-308)
[2020-11-29 06:19] LABS: NT Pro B Type Natriuretic Pept 260 pg/mL (0-125)
[2020-11-29 06:20] LABS: Slide Review Slide Review Perform
[2020-11-29] MEDS: remdesivir 100 MG in sodium chloride 0.9% (100 ml) 100 ML IV (06:27)
[2020-11-29] MEDS: albuterol 8 gm MDI 2 PUFF INHALATION (08:18)
--- NOTE | 2020-11-29 09:00 | CT_ITS ---
WS: [id number] CT HEAD TECHNIQUE: Noncontrast CT of the head obtained from the skullbase to the vertex. CLINICAL INFORMATION: intractable hiccups COMPARISON: 2015 DLP: 694.[address] scans at [facility] use at least one of these dose optimization techniques: automat ed exposure control; mA and/or kV adjustment per patient size (includes targeted exams where dose is matched to clinical indication); or iterative reconstruction. FINDINGS: No evidence of intracranial hemorrhage or mass effect. Ventricular system and basal cisterns are paulino nt. Mild small vessel changes with mild parenchymal volume loss. Chronic lacunar infarct adjacent to the right frontal horn. Tiny chronic lacunar infarct right basal ganglia. No extra-axial fluid collec tions. No evidence of mass or mass effect. Normal grossman-white differentiation. Paranasal sinuses and mastoid air cells are well aerated. .Normal visualized soft tissues. CT/CT head wo con* [id number] IMPRESSION: 1. No evidence of intracranial hemorrhage or mass effect. 2. Mild small vessel changes. Mild parenchymal volume loss. 3. Chronic lacunar infarct adjacent to the right frontal horn. 4. No acute intracranial findings.
[2020-11-29] MEDS: zinc gluconate 50 mg Tablet PO (09:06)
[2020-11-29] MEDS: ascorbic acid 500 mg Tablet 1000 MG PO ×2 (09:06→16:59)
[2020-11-29] MEDS: pantoprazole DR 40 mg Tablet PO (09:06)
[2020-11-29] MEDS: polyethylene glycol 3350 Pkt 17 gm PO (09:06)
[2020-11-29] MEDS: cholecalciferol (vitamin D3) 1,000 unit Tablet 2000 UNIT PO (09:06)
[2020-11-29] MEDS: docusate sodium 100 mg Capsule PO ×2 (09:06→17:00)
--- NOTE | 2020-11-29 09:54 | PC.NURSE ---
to ct scan via wheelchair ushered by Bess from radiology.
--- NOTE | 2020-11-29 10:00 | PC.NURSE ---
called and updated her Informed regarding pt's status and sangeetha of cares today and his head ct scan related to his hiccups as ordered by the
[2020-11-29 10:59] LABS: Lipase 16 U/L (13-60)
--- NOTE | 2020-11-29 11:39 | PM.PN ---
Subjective Subjective: Interval history: Patient was seen this morning, he is on 30 L, 30% FiO2, he tells me that his hiccups are better, he still feels tired, no nausea, no vomiting, no lightheadedness, dizziness, no chest pain, no shortness of breath Vitals/I&O/Wt Last Vital Signs Temp 98.1 F 11/29/20 07:59 Pulse 51 L 11/29/20 11:30 Resp 20 H 11/29/20 11:30 BP 153/85 11/29/20 07:59 Pulse Ox 92 11/29/20 11:30 11/28/20 11/29/20 11/29/20 22:59 06:59 14:59 Intake Total 150 / 910 240 / 1150 460 / 460 Output Total 600 / 1300 800 / 2100 200 / 200 Balance -450 / -390 -560 / -950 260 / 260 Physical Exam Const: COMMON NORMALS: no acute distress and patient oriented x3 Resp: COMMON NORMALS: normal respiratory effort, No retractions, No use of accessory muscles and clear to auscultation bilaterally AUSCULTATION: clear to auscultation bilaterally Cardio: COMMON NORMALS: regular rate, regular rhythm, S1 normal heart sound present and S2 normal heart sound present RATE: regular rate RHYTHM: regular rhythm HEART SOUNDS: S1 normal heart sound present and S2 normal heart sound present GI: COMMON NORMALS: Normal to inspection, nondistended, normoactive bowel sounds present, Soft to palpation and non-tender PALPATION: Yes Soft to palpation Extremity: COMMON NORMALS: no pedal edema Neuro: COMMON NORMALS: patient oriented x3 Data : 11/29/20 04:07 11/29/20 04:07 A&P Assessment and plan (1) Sepsis: Status: Acute (2) Acute respiratory failure with hypoxia: Status: Acute (3) Thrombocytopenia: Status: Acute (4) Nicotine dependence, cigarettes, uncomplicated: Has not smoked in a week or so due to respiratory symptoms Nicotine patch as needed Status: Chronic (5) COVID-19 vaccine dose not administered: Status: Acute (6) Pneumonia due to COVID-19 virus: Dexamethasone started 11/26 Remdesivir started 11/26 Consider Actemra pending reevaluation in the morning Oxygen therapy as needed to maintain saturations - HHF 45L, 55% FIO2 at admission Respiratory therapy to follow Advair, spiriva, albuterol Fluttter/Incentive spirometer Check d dimer, fibrinogen, PT, PTT, ferritin, CK, LDH CRP 43.1 Pro calcitonin 0.11 Lactic Acid 1.3 BNP 31 Baseline Trop 11 Sputum gram stain and culture ordered 11/26 Blood cultures collected 11/25 PCR testing is pending CTA has not yet been performed Leukopenia and thrombocytompenia present at admission Vitamin C, vitamin D, zinc Status: Acute (7) Hepatitis C: Status: Acute Additional A&P Information Sepsis Sepsis resolved White count 10.5, afebrile Cultures negative Acute hypoxia Related to COVID-19 Currently on 30% 30 L heated high flow, I have asked respiratory therapist to wean his oxygen down further and try nasal cannula or nonrebreather today Continue remdesivir and Decadron Inflammatory markers every 48 hours Monitor for bradycardia Continue multivitamins, zinc Anorexia with fatigue Related to COVID-19 viremia I would not add any appetite stimulant as they have side effect of sedation Patient is able to finish 50 to 60% of his meals Chronic thrombocytopenia Likely secondary to hepatitis C, hepatomegaly, COVID-19 Stable at 66 no active bleeding Hepatitis C with hepatomegaly, will do viral load, will do genotype, have patient follow-up with GI Intractable hiccups, Thorazine as needed Chronic lacunar infarct adjacent to right frontal horn DVT Lovenox, Full code Regular diet Interleukin-6 inhibitor contraindicated due to thrombocytopenia Discussed disposition goal: Once his O2 saturation is between 89-91% on 4 to 5 L nasal cannula, plan for discharge home at that point, for now his oxygen requirement has not been worsening, inflammatory markers trending down Plan for today, continue remdesivir, continue steroids, control hiccups, wean oxygen as tolerated Attestations Medical Necessity Statement*: Patient requires hospitalization for acute respiratory failure secondary to Covid HD, Coding Level of Care 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 Fwd Diagnoses Sepsis A41.9 Acute respiratory failure with hypoxia J96.01 Thrombocytopenia D69.6 Nicotine dependence, cigarettes, uncomplicated F17.210 COVID-19 vaccine dose not administered Z28.9 Pneumonia due to COVID-19 virus U07.1; J12.82 Hepatitis C B19.20
[2020-11-29] MEDS: enoxaparin 40 mg/0.4 mL Syringe SUBCUT (13:10)
--- NOTE | 2020-11-29 13:27 | PC.NURSE ---
Pt had two family members come to visit. This nurse asked Dr. Carroll for clarification if pt was allowed visitors. Per Dr. Carroll, no visitor exceptions had been made. This nurse informed visitors of current visiting policy for covid pts and that no one would be able to come in after they left. Visitors verbalized understanding and left without incident. desk editor informed that there are no visitor exceptions for 2A at this time.
--- NOTE | 2020-11-29 14:27 | US_ITS ---
WS: [id number] ULTRASOUND ABDOMEN CLINICAL INFORMATION: liver and spleen COMPARISON: None. FINDINGS: Liver Size: Hepatomegaly. Focal fat near the gallbladder fossa. Craniocaudal length: 17.6 cm. Echogenicity: Normal. Surface nodularity: None. Mass (size and location): None. Bile ducts Intrahepatic ducts: Normal. Common bile duct diameter: 0.5 cm. Gallbladder Normal. Gallstones: None. Gallbladder sludge: None. Gallbladder wall thickening: None. Pericholecystic fluid: None. Sonographic Win sign: Absent. Pancreas Echogenic Spleen Splenomegaly: None. Craniocaudal length: 10.0 cm. Right kidney: Normal. Hydronephrosis: None. Size: 9.6 cm x 4.5 cm x 4.1 cm Left kidney: Normal. Hydronephrosis: None. Size: 9.6 cm x 6.2 cm x 5.4 cm. Abdominal aorta and IVC Visualized portions are normal. Ascites: None. US/US abdomen complete* [id number] IMPRESSION: 1. Hepatomegaly. 2. Normal gallbladder and common bile duct. 3. No hydronephrosis in either kidney. 4. Echogenic pancreas can be seen with fatty infiltration or pancreatitis. Rec ommend correlation with pancreatic enzymes. 5. Normal spleen.
--- NOTE | 2020-11-29 16:29 | PC.RESP ---
SMOKING CESSATION INFORMATION SENT TO PATIENT.
[2020-11-29] MEDS: chlorPROMazine 25 mg Tablet PO (16:59)
--- NOTE | 2020-11-29 20:30 | PC.NURSE ---
Shift Note Frequent safety and comfort rounds continue. Orders and/or nursing care completed as indicated. Patient monitored for response to intervention and treatment(s). Education provided includes oxygen use, new meds, telemetry. Patient and/or employee's representative verbalizes understanding . Will continue to monitor.
[2020-11-30] VITALS (13 sets, daily range): BP systolic 115–152; BP diastolic 65–90; PULSE 0–79; RESP 16–34; TEMP 36.3–37; O2SAT 91–96
[2020-11-30 06:35] LABS: Basophils % 0.1 %; Hematocrit 38.9 % (42.0-52.0); Hemoglobin 13.1 g/dL (11.7-16.6); Lymphocytes # 0.6 10^3/uL (0.8-4.8); Lymphocytes % 7.8 %; Mean Corpuscular HGB Conc 33.7 g/dL (30.0-36.0); Mean Corpuscular Hemoglobin 30.5 pg (28.0-34.0); Mean Corpuscular Volume 90.7 fl (80-94); Mean Platelet Volume 11.3 fL (7.4-10.4); Monocytes # 0.5 10^3/uL (0.2-0.9); Monocytes % 5.6 %; Neutrophils # 6.97 10^3/uL (1.8-7.7); Neutrophils % 85.5 %; Nucleated Red Blood Cells % 0 %; Platelet Count 65 10^3/cmm (130-400); Red Blood Count 4.29 10^6/uL (4.1-5.3); Red Cell Distribution Width 13.2 % (12.1-15.1); White Blood Count 8.2 10^3/uL (4.0-10.0)
[2020-11-30] MEDS: remdesivir 100 MG in sodium chloride 0.9% (100 ml) 100 ML IV (06:46)
[2020-11-30 07:17] LABS: Alanine Aminotransferase 32 U/L (0-41); Alkaline Phosphatase 118 IU/L (40-130); Anion Gap 17.5 (5-19); Aspartate Amino Transferase 27 U/L (0-40); Blood Urea Nitrogen 20 mg/dL (6-20); C Reactive Protein 3.4 mg/L (0.0-4.9); Calcium 8.1 mg/dL (8.5-10.5); Carbon Dioxide 21 mmol/L (22-29); Chloride 100 mmol/L (98-107); Creatinine Clr Calc Pharmacy 155.3385; Globulin 3.5 g/dL (1.3-4.6); Glomerular Filtration Rate 137.9 mL/min (90-130); Glucose 277 mg/dL (65-115); Magnesium 1.9 mg/dL (1.7-2.3); Osmolality Calculated 291 mOsm/kg (285-295); Phosphorus 3.3 mg/dL (2.5-4.5); Potassium 4.5 mmol/L (3.5-5.1); Sodium 134 mmol/L (136-145); Total Bilirubin 0.4 mg/dL (0.15-1.2); Total Protein 6.5 g/dL (6.6-8.7)
[2020-11-30 07:28] LABS: NT Pro B Type Natriuretic Pept 161 pg/mL (0-125); Procalcitonin 0.05 ng/mL (0-0.5)
[2020-11-30 07:38] LABS: Creatine Phosphokinase 34 U/L (39-308)
--- NOTE | 2020-11-30 08:48 | ECG_ITS ---
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 Measurements Intervals [place] Rate: 65 P: 32 SC: 151 QRS: 0 QRSD: 96 T: 75 QT: 428 QTc: 447 Interpretive Statements SINUS RHYTHM INCOMPLETE RIGHT BUNDLE BRANCH BLOCK [90+ ms QRS DURATION, TERMINAL R IN V1/V2, 40+ ms S IN I/aVL/V4/V5/V6] INTERPRETATION BASED ON A DEFAULT AGE OF 40 YEARS Compared to ECG 11/25/2020 22:10:22 Incomplete right bundle-branch block now present T-wave abnormality no longer present Electronically Signed On 11-30-2020 13:03:38 CDT by Vidhya Lambert M.D. [email or web address].[email or web address] hospitalRunacleveland [facility].Mobakids/store/NU/[id number] f
[2020-11-30] MEDS: albuterol 8 gm MDI 2 PUFF INHALATION (08:51)
[2020-11-30] MEDS: lidocaine 2% viscous 15 ML, aluminum-mag hydrox-simethicon 30 ML, sucralfate oral liq 1 GM PO (09:28)
[2020-11-30] MEDS: ascorbic acid 500 mg Tablet 1000 MG PO ×2 (09:31→18:19)
[2020-11-30] MEDS: cholecalciferol (vitamin D3) 1,000 unit Tablet 2000 UNIT PO (09:31)
[2020-11-30] MEDS: atorvastatin 40 mg Tablet PO (09:31)
[2020-11-30] MEDS: aspirin 81 mg EC Tablet PO (09:31)
[2020-11-30] MEDS: pantoprazole DR 40 mg Tablet PO (09:31)
[2020-11-30] MEDS: zinc gluconate 50 mg Tablet PO (09:31)
[2020-11-30] MEDS: docusate sodium 100 mg Capsule PO ×2 (09:32→18:20)
--- NOTE | 2020-11-30 10:06 | PC.NURSE ---
Patient had episode of Chest pain this morning 6/ non radiating, EKG was obtained and physician notified. Patient endorses pain is gone now and is resting in bed watching tv.
--- NOTE | 2020-11-30 10:48 | ECG_ITS ---
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 Measurements Intervals [place] Rate: 64 P: 22 GA: 152 QRS: -14 QRSD: 93 T: 82 QT: 414 QTc: 428 Interpretive Statements SINUS RHYTHM INCOMPLETE RIGHT BUNDLE BRANCH BLOCK [90+ ms QRS DURATION, TERMINAL R IN V1/V2, 40+ ms S IN I/aVL/V4/V5/V6] NONSPECIFIC T-WAVE ABNORMALITY Compared to ECG 11/30/2020 08:42:42 T-wave abnormality now present Electronically Signed On 11-30-2020 13:04:37 CDT by Vidhya Lambert M.D. [email or web address].IIDchoctaw regional medical centerAcesion Pharmaselect [facility].Sina/store/OM/[id number]
[2020-11-30] MEDS: FUROsemide 10 mg/mL SDV 2mL 20 MG IVP (10:59)
[2020-11-30 12:28] LABS: Troponin(5th) Baseline 7 ng/L (0-15)
--- NOTE | 2020-11-30 13:25 | PM.PN ---
Subjective Subjective: Interval history: Patient was examined this morning, he is complaining of left-sided chest pain, palpable, sharp-like pain, nonpleuritic, nonradiating, EKG was normal sinus rhythm, baseline troponin VII, pain improved, currently we have weaned him down to 4 L, denies any shortness of breath, no fevers overnight, Vitals/I&O/Wt Last Vital Signs Temp 98.4 F 11/30/20 12:13 Pulse 68 11/30/20 12:13 Resp 16 11/30/20 12:13 BP 130/76 11/30/20 12:13 Pulse Ox 94 11/30/20 12:13 11/29/20 11/30/20 11/30/20 22:59 06:59 14:59 Intake Total 600 / 1060 100 / 1160 600 / 600 Output Total 800 / 1500 500 / 2000 800 / 800 Balance -200 / -440 -400 / -840 -200 / -200 Physical Exam Const: COMMON NORMALS: no acute distress ORIENTATION/CONSCIOUSNESS: Yes awake, Yes oriented to person, Yes oriented to place and Yes oriented to time Resp: COMMON NORMALS: normal respiratory effort, No retractions, No use of accessory muscles and clear to auscultation bilaterally AUSCULTATION: clear to auscultation bilaterally Cardio: COMMON NORMALS: regular rate, regular rhythm, S1 normal heart sound present and S2 normal heart sound present RATE: regular rate RHYTHM: regular rhythm HEART SOUNDS: S1 normal heart sound present and S2 normal heart sound present GI: COMMON NORMALS: Normal to inspection, nondistended, normoactive bowel sounds present and Soft to palpation PALPATION: Yes Soft to palpation Extremity: COMMON NORMALS: no pedal edema Neuro: SENSORIUM/ORIENTATION: Yes oriented to person, Yes oriented to place and Yes oriented to time Data : 11/30/20 05:58 11/30/20 05:58 A&P Assessment and plan (1) Sepsis: Status: Acute (2) Acute respiratory failure with hypoxia: Status: Acute (3) Thrombocytopenia: Status: Acute (4) Nicotine dependence, cigarettes, uncomplicated: Has not smoked in a week or so due to respiratory symptoms Nicotine patch as needed Status: Chronic (5) COVID-19 vaccine dose not administered: Status: Acute (6) Pneumonia due to COVID-19 virus: Dexamethasone started 11/26 Remdesivir started 11/26 Consider Actemra pending reevaluation in the morning Oxygen therapy as needed to maintain saturations - HHF 45L, 55% FIO2 at admission Respiratory therapy to follow Advair, spiriva, albuterol Fluttter/Incentive spirometer Check d dimer, fibrinogen, PT, PTT, ferritin, CK, LDH CRP 43.1 Pro calcitonin 0.11 Lactic Acid 1.3 BNP 31 Baseline Trop 11 Sputum gram stain and culture ordered 11/26 Blood cultures collected 11/25 PCR testing is pending CTA has not yet been performed Leukopenia and thrombocytompenia present at admission Vitamin C, vitamin D, zinc Status: Acute (7) Hepatitis C: Status: Acute Additional A&P Information Sepsis Sepsis resolved White count 8.2, afebrile Cultures negative Acute hypoxia Related to COVID-19 Currently on 3 to 4 L nasal cannula Continue remdesivir and Decadron Inflammatory markers every 48 hours Monitor for bradycardia Continue multivitamins, zinc Chest pain, noncardiac -EKG no acute ST-T wave changes, baseline troponin VII -Palpable on exam seems musculoskeletal -Continue aspirin, statin, nitro as needed -Toradol as needed for pain -Continue to monitor Anorexia with fatigue Related to COVID-19 viremia Chronic thrombocytopenia Likely secondary to hepatitis C, hepatomegaly, COVID-19 Stable at 65 no active bleeding Hepatitis C with hepatomegaly, will do viral load, will do genotype, have patient follow-up with GI Intractable hiccups, Thorazine as needed Chronic lacunar infarct adjacent to right frontal horn DVT Lovenox, Full code Regular diet Interleukin-6 inhibitor contraindicated due to thrombocytopenia Discussed disposition goal: Once his O2 saturation is between 89-91% on 4 to 5 L nasal cannula, plan for discharge home at that point, for now his oxygen requirement has not been worsening, inflammatory markers trending down Plan for today, last dose of remdesivir, continue steroids, control hiccups, wean oxygen as tolerated, potential discharge the next 24 hours, monitor for chest pain Attestations Medical Necessity Statement*: Patient requires hospitalization for COVID-19 pneumonia Coding Level of Care Code 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
[2020-11-30] MEDS: acetaminophen 325 mg Tablet 650 MG PO (14:30)
[2020-11-30] MEDS: enoxaparin 40 mg/0.4 mL Syringe SUBCUT (14:33)
--- NOTE | 2020-11-30 14:48 | ECG_ITS ---
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 Measurements Intervals [place] Rate: 67 P: -4 DE: 149 QRS: -4 QRSD: 100 T: 78 QT: 409 QTc: 433 Interpretive Statements SINUS RHYTHM INCOMPLETE RIGHT BUNDLE BRANCH BLOCK [90+ ms QRS DURATION, TERMINAL R IN V1/V2, 40+ ms S IN I/aVL/V4/V5/V6] NONSPECIFIC ST & T-WAVE ABNORMALITY Compared to ECG 11/30/2020 11:03:50 No significant changes Electronically Signed On 11-30-2020 20:52:58 CDT by Vidhya Lambert M.D. [email or web address].Adpepsallegiance specialty hospital of greenvilleInkd.[facility]mer[facility].Wealthfront/store/OM/[id number]
--- NOTE | 2020-11-30 15:02 | PC.NURSE ---
patient reports severe headache, 10/19. Physician notified and received orders for tramadol 25mg PO ONCE
[2020-11-30] MEDS: TRAMadol 50 mg Tablet 25 MG PO (15:20)
[2020-11-30 15:50] LABS: Troponin 5 2HR 7.94 ng/L (0-15); Troponin 5 2HR Delta 0.94 ABS# (0-10)
--- NOTE | 2020-11-30 21:26 | PC.RESP ---
RT Shift Note Frequent safety and respiratory rounds continue. Orders completed as indicated. Patient monitored pre and post treatments throughout shift. Patient [Did.] tolerate treatments appropriately. Condition [DidNotChange]. 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 Patient and/or door to door sales representative [ResponseToTeaching]. Will continue to monitor patient progress.
[2020-12-01] VITALS (8 sets, daily range): BP systolic 124–129; BP diastolic 75–82; PULSE 0–76; RESP 20–26; TEMP 36.4–36.9; O2SAT 85–91
[2020-12-01] MEDS: dexamethasone 4 mg/mL INJ 6 MG IVP (00:35)
[2020-12-01 07:18] LABS: Basophils % 0.4 %; Hematocrit 41.4 % (42.0-52.0); Hemoglobin 13.8 g/dL (11.7-16.6); Lymphocytes # 0.7 10^3/uL (0.8-4.8); Lymphocytes % 8.7 %; Mean Corpuscular HGB Conc 33.3 g/dL (30.0-36.0); Mean Corpuscular Hemoglobin 30.4 pg (28.0-34.0); Mean Corpuscular Volume 91.2 fl (80-94); Mean Platelet Volume 12.2 fL (7.4-10.4); Monocytes # 0.5 10^3/uL (0.2-0.9); Monocytes % 6.1 %; Neutrophils # 6.79 10^3/uL (1.8-7.7); Neutrophils % 82.5 %; Nucleated Red Blood Cells % 0 %; Platelet Count 63 10^3/cmm (130-400); Red Blood Count 4.54 10^6/uL (4.1-5.3); Red Cell Distribution Width 13.2 % (12.1-15.1); White Blood Count 8.2 10^3/uL (4.0-10.0)
[2020-12-01 07:36] LABS: Alanine Aminotransferase 29 U/L (0-41); Albumin Level 2.9 g/dL (3.5-5.2); Alkaline Phosphatase 116 IU/L (40-130); Anion Gap 16.7 (5-19); Aspartate Amino Transferase 27 U/L (0-40); Blood Urea Nitrogen 16 mg/dL (6-20); C Reactive Protein 35.3 mg/L (0.0-4.9); Carbon Dioxide 23 mmol/L (22-29); Chloride 97 mmol/L (98-107); Creatinine Clr Calc Pharmacy 133.1473; Globulin 3.9 g/dL (1.3-4.6); Glomerular Filtration Rate 115.4 mL/min (90-130); Glucose 221 mg/dL (65-115); Magnesium 1.9 mg/dL (1.7-2.3); Osmolality Calculated 282 mOsm/kg (285-295); Phosphorus 2.7 mg/dL (2.5-4.5); Potassium 4.7 mmol/L (3.5-5.1); Sodium 132 mmol/L (136-145); Total Bilirubin 0.5 mg/dL (0.15-1.2); Total Protein 6.8 g/dL (6.6-8.7)
[2020-12-01 08:01] LABS: NT Pro B Type Natriuretic Pept 120 pg/mL (0-125); Procalcitonin 0.06 ng/mL (0-0.5)
[2020-12-01] MEDS: albuterol 8 gm MDI 2 PUFF INHALATION (08:11)
[2020-12-01 08:12] LABS: Creatine Phosphokinase 49 U/L (39-308)
[2020-12-01] MEDS: atorvastatin 40 mg Tablet PO (10:01)
[2020-12-01] MEDS: zinc gluconate 50 mg Tablet PO (10:01)
[2020-12-01] MEDS: cholecalciferol (vitamin D3) 1,000 unit Tablet 2000 UNIT PO (10:01)
[2020-12-01] MEDS: ascorbic acid 500 mg Tablet 1000 MG PO (10:01)
[2020-12-01] MEDS: docusate sodium 100 mg Capsule PO (10:02)
[2020-12-01] MEDS: polyethylene glycol 3350 Pkt 17 gm PO (10:02)
[2020-12-01] MEDS: aspirin 81 mg EC Tablet PO (10:02)
[2020-12-01] MEDS: pantoprazole DR 40 mg Tablet PO (10:02)
--- NOTE | 2020-12-01 11:00 | P.DS_ITS ---
Discharge Providers Date of Admission: 11/26/20 00:13 Date of Discharge: December 01, 2020 Attending Provider at Admission: Thu Singh MD Attending Provider at Discharge: Tylor Carroll MD Diagnoses at Discharge Discharge Diagnosis (1) Sepsis: Status: Acute (2) Acute respiratory failure with hypoxia: Status: Acute (3) Thrombocytopenia: Status: Acute (4) Nicotine dependence, cigarettes, uncomplicated: Status: Chronic (5) COVID-19 vaccine dose not administered: Status: Acute (6) Pneumonia due to COVID-19 virus: Status: Acute (7) Hepatitis C: Status: Acute Reason for Visit Reason for Visit: Covid Symptoms Hospital Course Hospital Course This is a 60-year-old male nicotine dependence, GERD, has not received the Covid vaccine, who presents to [facility] due to shortness of breath, fatigue, malaise Patient was admitted to [facility] for acute hypoxic respiratory failure secondary COVID-19 pneumonia, patient was managed in the Covid unit, on high flow oxygen, with remdesivir, Decadron, broad-spectrum antibiotic therapy, Advair, Spiriva, albuterol, pulmonary toilet and clinically monitored. Patient had a slow clinical progress, he was eventually weaned down to 4 L at rest, 6 L with exertion, clinically improving, remained afebrile, ambulating without significant hematology. Patient has been discharged on Advair, Spiriva, albuterol, with close follow-up with primary care provider as outpatient In terms of hypercoagulability prophylaxis for COVID-19, he has not had any recent surgeries, no history of DVT or PEs in the past, he is to resume his aspirin and statin. I advised patient that he is a low risk of a DVT or PE, but that does not mean that he has no risk, he should remain mobile, if he were to have any signs of DVT or PE, go to the emergency room. Currently I feel that the risks of anticoagulation, outweighs its benefit. In terms of further work-up, patient was found to have hep C antibody positive, I have ordered hep C genotype including viral load, patient is to follow-up with GI clinic in [place] Patient was also found to have chronic lacunar infarct on the right frontal horn, should follow-up with primary care provider about blood pressure management Patient also was found to have chronic thrombocytopenia, likely secondary to hepatitis C, hepatomegaly, follow-up with hematology oncology as outpatient Patient also had intractable hiccups during his hospitalization, clinically improved, discharged on a short supply of Thorazine Physical Exam Const: COMMON NORMALS: no acute distress and patient oriented x3 Resp: COMMON NORMALS: normal respiratory effort, No retractions, No use of accessory muscles and clear to auscultation bilaterally AUSCULTATION: clear to auscultation bilaterally Cardio: COMMON NORMALS: regular rate, regular rhythm, S1 normal heart sound present and S2 normal heart sound present RATE: regular rate RHYTHM: regular rhythm HEART SOUNDS: S1 normal heart sound present and S2 normal heart sound present GI: COMMON NORMALS: Normal to inspection, nondistended, normoactive bowel s ounds present, Soft to palpation and non-tender PALPATION: Yes Soft to palpation Extremity: COMMON NORMALS: no pedal edema Neuro: COMMON NORMALS: patient oriented x3 Psych: COMMON NORMALS: mental status grossly normal Discharge Data Data Completed and Pending: Completed Studies During Hospitalization Category Date Time Status CT angio chest PE protcl [id number] Stat Cat Scan 11/26/20 07:[address] head wo con* 7 [id number] Routine Cat Scan 11/29/20 09:00 Completed XR KUB portable 7 [id number] Routine Exams 11/28/20 11:22 Completed XR chest 1V ariana ble [id number] Routine Exams 11/28/20 11:20 Completed XR chest 1V ariana ble [id number] Urgent Exams 11/25/20 20:06 [place] [id number] Routin e Ultrasound 11/26/20 07:52 Completed US abdomen comple te* [id number] Routine Ultrasound 11/29/20 14:27 Completed Pending at discharge Category Date Time Status Hepatitis C Genot ype RNA Stat Lab 11/29/20 10:50 Received Hepatitis C RNA V iral Load Qnt Stat Lab 11/29/20 10:50 Received Sputum Culture an d Gram Stain Routi ne Lab 11/26/20 00:27 Uncollected Labs from last 24 hours 12/01/20 12/01/20 12/01/20 05:59 05:59 05:59 WBC 8.2 RBC 4.54 Hgb 13.8 Hct 41.4 L MCV 91.2 MCH 30.4 MCHC 33.3 RDW 13.2 Plt Count 63 L MPV 12.2 H Neut % (Auto) 82.5 Lymph % (Auto) 8.7 [place] % (Auto) 6.1 Eos % (Auto) 0.0 Baso % (Auto) 0.4 Neut # (Auto) 6.79 Lymph # (Auto) 0.7 L [place] # (Auto) 0.5 Eos # (Auto) 0.0 Baso # (Auto) 0.0 Nucleated RBC % (a uto) 0 Nucleated RBCs # 0.0 Sodium 132 L Potassium 4.7 Chloride 97 L Carbon Dioxide 23 Anion Gap 16.7 BUN 16 Creatinine 0.7 GFR Calculation 115.4 Glucose 221 H Calculated Osmolal ity 282 L Calcium 8.0 L Phosphorus 2.7 Magnesium 1.9 Total Bilirubin 0.5 AST 27 ALT 29 Alkaline Phosphata se 116 Creatine Kinase 49 Troponin T Baselin e Troponin T 120 Min [place] Delta Troponin T Troponin T Hi Sens 6Hr Troponin T Hi Sens 6Hr Delta C-Reactive Protein 35.3 H NT-Pro-B Natriuret Pep 120 Total Protein 6.8 Albumin 2.9 L Globulin 3.9 Procalcitonin 0.06 11/30/20 11/30/20 11/30/20 17:50 14:25 11:35 WBC RBC Hgb Hct MCV MCH MCHC RDW Plt Count MPV Neut % (Auto) Lymph % (Auto) [place] % (Auto) Eos % (Auto) Baso % (Auto) Neut # (Auto) Lymph # (Auto) [place] # (Auto) Eos # (Auto) Baso # (Auto) Nucleated RBC % (a uto) Nucleated RBCs # Sodium Potassium Chloride Carbon Dioxide Anion Gap BUN Creatinine GFR Calculation Glucose Calculated Osmolal ity Calcium Phosphorus Magnesium Total Bilirubin AST ALT Alkaline Phosphata se Creatine Kinase Troponin T Baselin e 7 Troponin T 120 Min [place] 7.94 Delta Troponin T 0.94 Troponin T Hi Sens 6Hr 8.90 Troponin T Hi Sens 6Hr Delta 1.90 C-Reactive Protein NT-Pro-B Natriuret Pep Total Protein Albumin Globulin Procalcitonin Vitals: Last Vital Signs Temp 97.7 F 12/01/20 07:50 Pulse 70 12/01/20 08:14 Resp 20 H 12/01/20 08:11 BP 129/82 12/01/20 07:50 Pulse Ox 90 12/01/20 08:11 Discharge Plan Discharge Patient Disposition: Home Condition: Stable Prescriptions: New cholecalciferol (vitamin D3) 25 mcg (1,000 unit) Tablet 1,000 unit PO DAILY 30 Days Qty: 30 RF: 0 pantoprazole 40 mg Tablet,Delayed Release (Dr/Ec) 40 mg PO DAILY 30 Days Qty: 30 RF: 0 zinc gluconate 50 mg Tablet 50 mg PO DAILY 30 Days Qty: 30 RF: 0 benzonatate 100 mg Capsule 100 mg PO TID PRN (Reason: Cough) 15 Days Qty: 45 RF: 0 chlorpromazine 25 mg Tablet 25 mg PO Q12H PRN (Reason: hiccups) 5 Days Qty: 10 RF: 0 docusate sodium 100 mg Capsule 100 mg PO BID 30 Days Qty: 60 RF: 0 atorvastatin 40 mg Tablet 40 mg PO Q24H 30 Days Qty: 30 RF: 0 ascorbic acid (vitamin C) [Vitamin C] 500 mg Tablet 500 mg PO BID 30 Days Qty: 60 RF: 0 fluticasone propion-salmeterol [Advair Diskus] 250-50 mcg/dose Blister With Device 2 ea inhalation BID.RESPIRATORY Qty: 60 RF: 0 Spiriva with HandiHaler 18 mcg Capsule, W/Inhalation Device 18 mcg inhalation DAILY.RESPIRATORY Qty: 30 RF: 0 albuterol sulfate [Ventolin HFA] 90 mcg/actuation Hfa Aerosol Inhaler 2 puff inhalation Q4H.RESPIRATORY PRN (Reason: Shortness Of Breath) Qty: 8.5 RF: 0 polyethylene glycol 3350 17 gram Powder In Packet 17 g PO DAILY 30 Days Qty: 30 RF: 0 aspirin 81 mg Tablet,Delayed Release (Dr/Ec) 81 mg PO DAILY 30 Days Qty: 30 RF: 0 nicotine 14 mg/24 hr patch 24 hour 1 patch transdermal DAILY Qty: 28 RF: 0 Discontinued Prilosec OTC 20 mg Tablet,Delayed Release (Dr/Ec) 20 mg PO DAILY RF: 0 Discharge Orders: Discharge Order (Routine); Ordered 12/01/20 Ordered By: Tylor Carroll Referrals: Mark Shelley DO [Referring] - 1 month (marcano gi, hepatitis c) Lia Phelan MD [Staff Physician] - 1 month (thrombocytopenia ) Discharge Diet: Cardiac Discharge Activity: Resume usual activity Patient Instructions: Opioid Safety Activity Restrictions/Additional Instructions: -Please continue to self isolate, socially distance, facemask, hand wash -Please monitor for signs of blood clots, including DVTs or pulmonary emboli, if you have sudden onset of calf swelling, sudden onset of shortness of breath, or bloody cough go to the emergency room -Please continue to be mobile -Please discuss with the primary care provider about Covid vaccination -You have been discharged on 4 L oxygen at rest, 6 L with exertion -Please use inhalers as prescribed -Please follow-up with GI in 1 month -Please follow-up with hematology in 1 month -Please follow-up with primary care provider in the next a few weeks Discharge Attestations Time Spent in Discharge Care*: less than 30 min Quality Metrics Clinical Quality Measures During this hospital stay, did patient experience: None Coding Level of Care Code Acute [facility] note Diagnoses Sepsis A41.9 Acute respiratory failure with hypoxia J96.01 Thrombocytopenia D69.6 Nicotine dependence, cigarettes, uncomplicated F17.210 COVID-19 vaccine dose not administered Z28.9 Pneumonia due to COVID-19 virus U07.1; J12.82 Hepatitis C B19.20
--- NOTE | 2020-12-01 11:38 | PC.SOCIAL ---
Christine called to clarify dose of Advair. Clarified with Dr Carroll it is one inhalation twice daily not two inhalations twice daily. Christine updated.
--- NOTE | 2020-12-01 15:05 | PC.SOCIAL ---
Talked to Nam at [facility] pharmacy after speaking with Dr Carroll. cost of meds total are 800 dollars. We will hold off on the Benzonate, Chlorpromezine and Nicotine Patch. will fill the Atorvastatin and Ventolin. Ventolin will be 48 dollars and Atorvastatin 15.00 dollars. Nam will help find the ASA EC 81mg, Miralax, stool softener, vit c and Zinc OTC. Will stop the Protonix and per Dr Carroll continue Prilosec as before. Will have our pharmacy fill the Spiriva and Advair in am and have garbage pick up man so can be under 340B plan. updated and will follow up in am. udpated nursing staff Jolene on 2A as well.
--- NOTE | 2020-12-02 09:15 | PC.SOCIAL ---
Called Zeus into outpt pharmacy they will bill patient and updated she can pick these up around 11am
[2020-12-04 07:58] LABS: HEP C RNA Viral Load Quant 1.56 Log IU/mL (NOT DETECTED); HEP C RNA Viral Load Quant 36 IU/mL (NOT DETECTED)
--- NOTE | 2020-12-05 14:04 | PC.SOCIAL ---
discharge follow up call made, no answer, unable to leave message.
[2020-12-12 23:48] LABS: Hepatitis C Genotype RNA NOT DETECTED
== END 2020-12-01 14:00 | disposition home or self-care (01) | DRG 177 ==
LOC: ER 11-26 00:12 → MS 2A 11-26 00:13
PROVIDERS: Internal Medicine; Admitting Provider Hospitalist; Emergency Provider Emergency Medicine; Visit Provider Family Medicine
DX: U07.1 COVID-19 (principal); J12.82 Pneumonia due to coronavirus disease 2019; J96.01 Acute respiratory failure with hypoxia; K21.9 Gastro-esophageal reflux disease without esophagitis; F17.210 Nicotine dependence, cigarettes, uncomplicated; D69.59 Other secondary thrombocytopenia; B19.20 Unspecified viral hepatitis C without hepatic coma; Z86.73 Personal history of transient ischemic attack (TIA), and cerebral infarction without residual deficits; Z79.51 Long term (current) use of inhaled steroids; Z79.82 Long term (current) use of aspirin
CPT/HCPCS: 36415; 70450; 71045; 71275; 74018; 76700; 80048; 80053; 80074; 80500; 82550; 82728; 83605; 83615; 83690; 83735; 83880; 84100; 84145; 84484; 85025; 85378; 85384; 85610; 85730; 86140; 86403; 87040; 87426; 87522; 87635; 87806; 87902; 93005; 93970; 94640; 96361; 96372; 96374; 96375; 97161; 99291; 99292; J1100; J1650; J1940; J2270; J2405; J3535; Q0161; Q9967

== ENCOUNTER 2020-12-08 18:40 | Inpatient (IN) | payer MEDICAID, SELFPAY ==
[2020-12-08] VITALS (8 sets, daily range): BP systolic 103–159; BP diastolic 64–87; PULSE 93–99; RESP 16–24; TEMP 36.6–36.9; O2SAT 92–100; BMI 29.2
--- NOTE | 2020-12-08 19:15 | XRR_ITS ---
PROCEDURE INFORMATION: Exam: XR Chest Exam date and time: 12/08/2020 7:15 PM Age: 60 years old Clinical indication: Cough and shortness of breath; Chest pressure; Patient HX: Chest pain with left shoulder tenderness and swelling. Cough/sob. Covid +. TECHNIQUE: Imaging protocol: XR of the chest. Views: 1 view. COMPARISON: CR XR chest 1V portable [id number] 11/28/2020 11:32 AM FINDINGS: Lungs: Extensive bilateral pulmonary infiltrates, consistent with known COVID-19 pneumonia. Pleural spaces: No pleural effusion. No pneumothorax. Heart/Mediastinum: No cardiomegaly. Bones/joints: Unremarkable. XR/XR chest 1V portable [id number] IMPRESSION: 1. Extensive bilateral pulmonary infiltrates, consistent with known COVID-19 pneumonia. 2. There is no interval change from the prior examination.
--- NOTE | 2020-12-08 19:15 | CTR_ITS ---
PROCEDURE INFORMATION: Exam: CTA Chest With Contrast Exam date and time: 12/08/2020 7:15 PM Age: 60 years old Clinical indication: Cough and shortness of breath; Chest pressure; Patient HX: Chest pain with left shoulder tenderness and swelling. Cough/sob. Covid +. Three attempts performed with different bolus timings. Best exam submitted. ; Additional info: Chest pain left arm pain TECHNIQUE: Imaging protocol: Computed tomographic angiography of the chest with contrast. 3D rendering (Not supervised by radiologist): MIP and/or 3D reconstructed images were created by the technologist. Radiation optimization: All CT scans at this facility use at least one of these dose optimization techniques: automated exposure control; mA and/or kV adjustment per patient size (includes targeted exams where dose is matched to clinical indication); or iterative reconstruction. Contrast material: OMNI 350; Contrast volume: 165 ml; Contrast route: INTRAVENOUS (IV); COMPARISON: CT angio chest PE protcl [id number] 11/26/2020 9:20 AM RADIATION DOSE METRICS: Total DLP (mGy-cm): 2496.4 FINDINGS: Limitations: Suboptimal opacification of the pulmonary arteries limits assessment of the peripheral branches. This is reportedly the best possible lobes and obtainable. Pulmonary arteries: Pulmonary arteries are normal in caliber. No filling defects are demonstrated. No evidence of pulmonary embolism, within the technical limits of the examination. Aorta: Atherosclerosis of the thoracic aorta. No aneurysm or dissection. Lungs: Extensive bilateral pulmonary infiltrates, consistent with known COVID-19 pneumonia. Pleural spaces: Unremarkable. No pneumothorax. No pleural effusion. Heart: No cardiomegaly. No pericardial effusion. Lymph nodes: Nonspecific mediastinal and bilateral hilar lymph nodes, unchanged. nodes. Bones/joints: Chronic midthoracic spine compression fracture noted. No acute osseous abnormality. Soft tissues: A cluster of 3 low-density foci are noted in the left subscapularis muscle, measuring up to 2.[address]/CT angio chest PE protcl [id number] IMPRESSION: 1. Suboptimal opacification of the pulmonary arteries limits assessment of the peripheral branches. This is reportedly the best possible lobes and obtainable. 2. No evidence of pulmonary embolism, within the technical limits of the examination. 3. Extensive bilateral pulmonary infiltrates, consistent with known COVID-19 pneumonia.. Infiltrates have increased in density when compared to the prior study. 4. A cluster of 3 low-density foci are noted in the left subscapularis muscle, measuring up to 2.5 cm. These may represent intramuscular abscesses versus subacute/chronic hematomas. This is new when compared to 11/26/2020. Radiation Dose CTDIVOL = (mGy): DLP = 2496.4 (mGy-cm)
--- NOTE | 2020-12-08 19:15 | ECG_ITS ---
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 Measurements Intervals [place] Rate: 94 P: 25 NM: 148 QRS: -10 QRSD: 104 T: 70 QT: 364 QTc: 456 Interpretive Statements SINUS RHYTHM INCOMPLETE RIGHT BUNDLE BRANCH BLOCK [90+ ms QRS DURATION, TERMINAL R IN V1/V2, 40+ ms S IN I/aVL/V4/V5/V6] NONSPECIFIC T-WAVE ABNORMALITY Compared to ECG 11/30/2020 16:12:31 No significant changes Electronically Signed On 12-09-2020 6:58:13 CDT by Jc Marie M.D. [email or web address]
[2020-12-08 19:28] LABS: Basophils % 0.2 %; Eosinophils % 0.1 %; Hematocrit 35.2 % (42.0-52.0); Hemoglobin 11.9 g/dL (11.7-16.6); Lymphocytes # 1.3 10^3/uL (0.8-4.8); Lymphocytes % 13.6 %; Mean Corpuscular HGB Conc 33.8 g/dL (30.0-36.0); Mean Corpuscular Hemoglobin 31.6 pg (28.0-34.0); Mean Corpuscular Volume 93.4 fl (80-94); Mean Platelet Volume 11.9 fL (7.4-10.4); Monocytes # 1.3 10^3/uL (0.2-0.9); Monocytes % 13.2 %; Neutrophils # 6.86 10^3/uL (1.8-7.7); Neutrophils % 72.6 %; Nucleated Red Blood Cells % 0 %; Platelet Count 53 10^3/cmm (130-400); Red Blood Count 3.77 10^6/uL (4.1-5.3); Red Cell Distribution Width 13.1 % (12.1-15.1); White Blood Count 9.5 10^3/uL (4.0-10.0)
[2020-12-08] MEDS: fentaNYL 50 mcg/mL INJ 2mL 75 MCG IVP (19:30)
[2020-12-08] MEDS: ondansetron 2 mg/ML SDV 2 mL 4 MG IVP (19:31)
[2020-12-08 19:37] LABS: INR 1.26 (0.8-1.2)
--- NOTE | 2020-12-08 19:37 | ED_ITS ---
HPI - Chest Pain General: Chief Complaint: Chest Pain Stated Complaint: CHEST PAIN Time Seen by Provider: 12/08/20 18:50 History of Present Illness: HPI narrative: 60-year-old male who was released from the hospital 7 days ago post acute respiratory failure from Covid. He has been on oxygen. He notes that he has developed left upper extremity pain as of a few days ago. He states that he cannot move his arm and so painful, and that it is very painful even to light touch. He developed chest pain this afternoon sometime around 4. He says that he was not exerting himself during, just sitting around. He localizes his pain to the anterior and left chest base. He denies any fevers. He says that until today he thought he was slowly beginning to improve in terms of his breathing. He had aspirin and nitroglycerin in route with no change in his pain. MD complaint: chest pain Pertinent past history: other Onset (ago): hour(s) Timing of current episode: constant Prior episodes: Yes Onset: during rest Pain location: substernal and left chest Pain radiation: none Quality: sharp Relieving factors: nothing Exacerbating factors: nothing Context: recent illness and recent immobilization Associated symptoms: Reports dyspnea and nausea; Deny abdominal pain, diaphoresis, fever(s), leg edema, palpitations or vomiting Treatment prior to arrival: aspirin and nitroglycerin Review of Systems Const: Denies: fever(s) or diaphoresis Card: Denies: palpitations Resp: Reports: dyspnea GI: Reports: nausea; Denies: abdominal pain or vomiting [facility] ED PFSH: Medical History (Updated 12/08/20 @ 21:23 by Giuseppe Meade DO) GERD (gastroesophageal reflux disease) Nicotine dependence, cigarettes, uncomplicated Surgical History (Updated 11/26/20 @ 00:47 by Thu Singh MD) No pertinent past surgical history Family History (Updated 11/26/20 @ 01:04 by Thu Singh MD) Denies family history of CAD (coronary artery disease) Bleeding disorder Lung disease Social History (Updated 11/26/20 @ 01:04 by Thu Singh MD) Smoking and tobacco status: current every day smoker Alcohol intake: never Household members: spouse Marital status: Physical Exam Const: GENERAL APPEARANCE: cooperative and in distress (mild) ORIENTATION/CONSCIOUSNESS: Yes awake, Yes oriented to person, Yes oriented to place and Yes oriented to time HENMT: COMMON NORMALS: normocephalic HEAD & SCALP: normocephalic FACE & SINUS: normal facial exam Eye: COMMON NORMALS: Equal, round and reactive pupils present and EOMs intact bilaterally PUPIL: Yes Equal, round and reactive pupils present Chest: COMMONS NORMALS: normal inspection of the chest CHEST: Yes tenderness (diffuse left sided) Resp: COMMON NORMALS: clear to auscultation bilaterally EFFORT & INSPECTION: No able to speak in complete sentences, Yes tachypneic and Yes uses accessory muscles AUSCULTATION: clear to auscultation bilaterally Cardio: COMMON NORMALS: regular rhythm and Peripheral pulses 2+ throughout RHYTHM: regular rhythm PERIPHERAL PULSES: Peripheral pulses 2+ throughout GI: COMMON NORMALS: Normal to inspection, nondistended, normoactive bowel sounds present, Soft to palpation and non-tender PALPATION: Yes Soft to palpation Neuro: SENSORIUM/ORIENTATION: Yes oriented to person, Yes oriented to place and Yes oriented to time Course Consultations: Consultation #1: Fausto Vital Signs: Vital signs: Vital Signs Temperature 97.9 F 12/08/20 18:59 Pulse Rate 99 12/08/20 22:00 Respiratory Rate 21 H 12/08/20 22:00 Blood Pressure 143/76 12/08/20 22:00 Pulse Oximetry 95 12/08/20 22:00 MDM - Chest Pain MDM Narrative: Medical decision making narrative: 60-year-old male with chest pain and left arm pain. His D-dimer is very high. EKG shows an incomplete right bundle branch block, sinus rhythm with a rate of 98, normal axis. No acute ST elevation or depression CTA is suboptimal for diagnosis of pulmonary artery embolus. On ultrasound, the patient has dense thrombosis in the axillary vein of the left upper extremity. CTA also shows worsening of his previous bilateral infiltrates, which are significant. His platelet count is 53, which complicates anticoagulation. Lab Data: Labs: Lab Results 12/08/20 12/08/20 12/08/20 Range/Units 18:29 18: 18: WBC 9.5 (4.0-10.0) 10^3/ uL RBC 3.77 L (4.1-5.3) 10^6/u L Hgb 11.9 (11.7-16.6) g/dL Hct 35.2 L (42.0-52.0) % MCV 93.4 (80-94) fl MCH 31.6 (28.0-34.0) pg MCHC 33.8 (30.0-36.0) g/dL RDW 13.1 (12.1-15.1) % Plt Count 53 L (130-400) 10^3/c mm MPV 11.9 H (7.4-10.4) fL Neut % (Auto) 72.6 % Lymph % (Auto) 13.6 % [place] % (Auto) 13.2 % Eos % (Auto) 0.1 % Baso % (Auto) 0.2 % Neut # (Auto) 6.86 (1.8-7.7) 10^3/u L Lymph # (Auto) 1.3 (0.8-4.8) 10^3/u L [place] # (Auto) 1.3 H (0.2-0.9) 10^3/u L Eos # (Auto) 0.0 (0.0-0.8) 10^3/u L Baso # (Auto) 0.0 (0.0-0.1) 10^3/u L Nucleated RBC % (a uto) 0 % Nucleated RBCs # 0.0 /100WBC PT 16.20 H (12.1-14.9) SECO NDS INR 1.26 H (0.8-1.2) APTT 39.7 H (23.9-36.7) SECO NDS D-Dimer 5.67 H (0-0.59) ug/mIFE U Sodium 129 L (136-145) mmol/L Potassium 3.9 (3.5-5.1) mmol/L Chloride 92 L (98-107) mmol/L Carbon Dioxide 24 (22-29) mmol/L Anion Gap 16.9 (5-19) BUN 12 (6-20) mg/dL Creatinine 0.7 (0.7-1.2) mg/dL GFR Calculation 115.4 (90-130) mL/min Glucose 144 H (65-115) mg/dL Calculated Osmolal ity 270 L (285-295) mOsm/k g Lactic Acid (0.5-2.2) mmol/L Calcium 9.0 (8.5-10.5) mg/dL Total Bilirubin 1.2 (0.15-1.2) mg/dL AST 101 H (0-40) U/L ALT 79 H (0-41) U/L Alkaline Phosphata se 247 H (40-130) IU/L Creatine Kinase 38 L (39-308) U/L Troponin T Baselin e (0-15) ng/L Troponin T 120 Min elem (0-15) ng/L Delta Troponin T (0-10) ABS# NT-Pro-B Natriuret Pep 125 (0-125) pg/mL Total Protein 8.1 (6.6-8.7) g/dL Albumin 2.4 L (3.5-5.2) g/dL Globulin 5.7 H (1.3-4.6) g/dL 12/08/20 12/08/20 12/08/20 Range/Units 18:29 18:29 21:21 WBC (4.0-10.0) 10^3/ uL RBC (4.1-5.3) 10^6/u L Hgb (11.7-16.6) g/dL Hct (42.0-52.0) % MCV (80-94) fl MCH (28.0-34.0) pg MCHC (30.0-36.0) g/dL RDW (12.1-15.1) % Plt Count (130-400) 10^3/c mm MPV (7.4-10.4) fL Neut % (Auto) % Lymph % (Auto) % [place] % (Auto) % Eos % (Auto) % Baso % (Auto) % Neut # (Auto) (1.8-7.7) 10^3/u L Lymph # (Auto) (0.8-4.8) 10^3/u L [place] # (Auto) (0.2-0.9) 10^3/u L Eos # (Auto) (0.0-0.8) 10^3/u L Baso # (Auto) (0.0-0.1) 10^3/u L Nucleated RBC % (a uto) % Nucleated RBCs # /100WBC PT (12.1-14.9) SECO NDS INR (0.8-1.2) APTT (23.9-36.7) SECO NDS D-Dimer (0-0.59) ug/mIFE U Sodium (136-145) mmol/L Potassium (3.5-5.1) mmol/L Chloride (98-107) mmol/L Carbon Dioxide (22-29) mmol/L Anion Gap (5-19) BUN (6-20) mg/dL Creatinine (0.7-1.2) mg/dL GFR Calculation (90-130) mL/min Glucose (65-115) mg/dL Calculated Osmolal ity (285-295) mOsm/k g Lactic Acid 1.6 (0.5-2.2) mmol/L Calcium (8.5-10.5) mg/dL Total Bilirubin (0.15-1.2) mg/dL AST (0-40) U/L ALT (0-41) U/L Alkaline Phosphata se (40-130) IU/L Creatine Kinase (39-308) U/L Troponin T Baselin e 8 (0-15) ng/L Troponin T 120 Min elem 7.97 (0-15) ng/L Delta Troponin T -0.03 L (0-10) ABS# NT-Pro-B Natriuret Pep (0-125) pg/mL Total Protein (6.6-8.7) g/dL Albumin (3.5-5.2) g/dL Globulin (1.3-4.6) g/dL Discharge Plan Discharge Patient Disposition: Admitted As Inpatient Admit Provider: Saundra Lambert Clinical Impression: Chest pain Qualifiers: Chest pain type: unspecified Qualified Code(s): R07.9 - Chest pain, unspecified Arm DVT (deep venous thromboembolism), acute Qualifiers: Laterality: left Qualified Code(s): I82.622 - Acute embolism and thrombosis of deep veins of left upper extremity Pneumonia Qualifiers: Pneumonia type: due to unspecified organism Laterality: bilateral Lung location: unspecified part of lung Qualified Code(s): J18.9 - Pneumonia, unspecified organism Condition: Stable Coding Level of Care Code ED Nuclear Medicine Chief Technologist for [facility] Fwd Exam Detailed
[2020-12-08 19:38] LABS: Partial Thromboplastin Time 39.7 SECONDS (23.9-36.7)
[2020-12-08] MEDS: iohexol 350 mg/mL 100 mL Btl IV ×2 (19:38→19:47)
[2020-12-08 19:44] LABS: Troponin(5th) Baseline 8 ng/L (0-15)
[2020-12-08 19:47] LABS: D Dimer 5.67 ug/mIFEU (0-0.59)
--- NOTE | 2020-12-08 19:54 | USR_ITS ---
PROCEDURE INFORMATION: Exam: US Duplex Left Upper Extremity Veins, Limited Exam date and time: 12/08/2020 7:54 PM Age: 60 years old Clinical indication: Pain; Arm, upper; Left; Additional info: Pain and swelling TECHNIQUE: Imaging protocol: Real-time Duplex ultrasound of the Left Upper Extremity with 2-D grossman scale, color Doppler flow and spectral waveform analysis with image documentation. Limited exam focused on the left upper extremity veins. COMPARISON: CT angio chest PE protcl [id number] 12/08/2020 7:34 PM FINDINGS: Left deep veins: Left axillary vein and left brachial vein are not fully compressible. Low level echoes are seen in the lumen of these veins. Only minimal Doppler signal is noted. Findings are consistent with thrombosis. The subclavian vein, the internal jugular vein, the ulnar vein, and the radial vein are patent. Left superficial veins: Unremarkable. Visualized cephalic and basilic veins are patent without thrombus. Soft tissues: Unremarkable. US/[place] [id number] IMPRESSION: There is deep vein thrombosis of the left axillary and left brachial veins demonstrated.
[2020-12-08 19:57] LABS: Alanine Aminotransferase 79 U/L (0-41); Albumin Level 2.4 g/dL (3.5-5.2); Alkaline Phosphatase 247 IU/L (40-130); Anion Gap 16.9 (5-19); Aspartate Amino Transferase 101 U/L (0-40); Blood Urea Nitrogen 12 mg/dL (6-20); Carbon Dioxide 24 mmol/L (22-29); Chloride 92 mmol/L (98-107); Creatine Phosphokinase 38 U/L (39-308); Globulin 5.7 g/dL (1.3-4.6); Glomerular Filtration Rate 115.4 mL/min (90-130); Glucose 144 mg/dL (65-115); NT Pro B Type Natriuretic Pept 125 pg/mL (0-125); Osmolality Calculated 270 mOsm/kg (285-295); Potassium 3.9 mmol/L (3.5-5.1); Sodium 129 mmol/L (136-145); Total Bilirubin 1.2 mg/dL (0.15-1.2); Total Protein 8.1 g/dL (6.6-8.7)
[2020-12-08 20:13] LABS: Lactic Sepsis W/Reflex 1.6 mmol/L (0.5-2.2)
--- NOTE | 2020-12-08 21:15 | ECG_ITS ---
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 Measurements Intervals [place] Rate: 98 P: -20 TX: 137 QRS: -3 QRSD: 101 T: 75 QT: 346 QTc: 443 Interpretive Statements SINUS RHYTHM POSSIBLE LEFT ATRIAL ENLARGEMENT [-0.1mV P-WAVE IN V1/V2] INCOMPLETE RIGHT BUNDLE BRANCH BLOCK [90+ ms QRS DURATION, TERMINAL R IN V1/V2, 40+ ms S IN I/aVL/V4/V5/V6] NONSPECIFIC T-WAVE ABNORMALITY Compared to ECG 11/30/2020 16:12:31 No significant changes Electronically Signed On 12-09-2020 6:59:33 CDT by Jc Marie M.D. [id number]
[2020-12-08] MEDS: levofloxacin-dextrose 5 % 750 MG/150 ML PREMIX 100 MG IV (21:51)
[2020-12-08 21:58] LABS: Troponin 5 2HR 7.97 ng/L (0-15)
[2020-12-08 21:59] LABS: Troponin 5 2HR Delta -0.03 ABS# (0-10)
[2020-12-08] MEDS: heparin 5,000 unit/mL INJ 1 mL IV (22:05)
[2020-12-08] MEDS: heparin drip 25,000 UNIT/500 ML PREMIX 23.75 UNIT IV (22:18)
[2020-12-08 22:49] LABS: INR 1.27 (0.8-1.2)
[2020-12-08 22:50] LABS: Partial Thromboplastin Time 39.8 SECONDS (23.9-36.7)
[2020-12-08 22:57] LABS: Fibrinogen 1068 mg/dL (174-498)
[2020-12-08 23:03] LABS: D Dimer 6.16 ug/mIFEU (0-0.59)
--- NOTE | 2020-12-08 23:27 | P.HP_ITS ---
Providers/Chief Complaint Admitting Physician: Saundra Lambert MD Chief Complaint: CHEST PAIN History of Present Illness Brian Ward is a 60 year old male 60-year-old male nicotine dependence, GERD, has not received the Covid vaccine, recently admitted here between 11/25-12/01 for acute hypoxic respiratory failure secondary COVID-19 pneumonia, patient was managed in the Covid unit, on high flow oxygen, with remdesivir, Decadron, broa d-spectrum antibiotic therapy, Advair, Spiriva, albuterol, pulmonary toilet and clinically monitored. Patient had a slow clinical progress, he was eventually weaned down to 4 L at rest, 6 L with exertion, clinically improving, remained afebrile, ambulating without significant hematology. Patient has been discharged on Advair, Spiriva, albuterol, with close follow-up with primary care provider as outpatient. Patient was found to have hepatitis C infection as well with + hep c screen and + HCV RNA, chronic thrombocytopenia, likely secondary to hepatitis C, hepatomegaly,referred to see hematology as outpatient. He returns today with left upper extremity pain, limited ROM. Also c/o left sided chest pain which appeats to be pleuritic in nature. UE duplex revealed acute DVT in the left axillary and brachial veins. CTA PE was inconclusive due to poor opacification of the pulmonary arteries. Extensive B/L pulmonary infiltrates overall unchanged to improving per my read from last CT few days ago. Incidentally notedd 3 low density foci in left subscapularis muscle measuring up to 2.5 cm- abscess vs subacute/chronic hematomas. Latter finding not specifically described on CT from 11/26. Review of Systems General: Reports: 10 or more systems reviewed and unremarkable except in HPI and below Const: Denies: fever(s), chills or body aches Eyes: Denies: change in vision, blurry vision or photophobia ENMT: Reports: hoarseness; Denies: throat pain, enlarged tonsils, odynophagia or nasal congestion Card: Denies: chest pain, palpitations, irregular heart rhythm, edema, swelling of feet/ankles, lightheadedness, pre-syncope, dyspnea on exertion or orthopnea Resp: Denies: dyspnea, productive cough, non-productive cough, wheezing, stridor, pain on inspiration, change in phlegm color, hemoptysis or chest congestion GI: Denies: abdominal pain, nausea, vomiting, hematemesis, coffee ground emesis, dysphagia, heartburn, diarrhea, constipation, GI cramping, change in stool character, hematochezia or melena : Denies: flank pain, dysuria, urinary frequency, urinary urgency, urinary hesitancy or hematuria Musc: Denies: neck pain, back pain, extremity pain, joint swelling, joint warmth or deformity Neuro: Denies: headache(s), numbness in extremities, weakness in extremities, sensory changes, difficulty walking, frequent falls, dizziness, vertigo, behavioral changes, Slurred speech present or seizure-like activity Psych: Denies: anxiety, depression, suicidal ideation or homicidal ideation Endo: Denies: polyuria, polydipsia, tired all the time, cold intolerance or hot flashes Edouard/Lymph: Denies: easy bruising or easy bleeding Medications/Allergies Home Medications Medication Instructions Recorded Confirmed Last Taken Type albuterol sulfate [Ventolin HFA] 2 puff INHALATION Q4H.RESPIRATORY 12/01/20 Unknown Rx PRN #8.5 g ascorbic acid (vitamin C) [Vitamin 500 mg PO BID 30 Days #60 tab 12/01/20 Unknown Rx C] aspirin 81 mg PO DAILY 30 Days #30 tab 12/01/20 Unknown Rx atorvastatin 40 mg PO Q24H 30 Days #30 tab 12/01/20 Unknown Rx benzonatate 100 mg PO TID PRN 15 Days #45 cap 12/01/20 Unknown Rx cholecalciferol (vitamin D3) 1,000 unit PO DAILY 30 Days #30 tab 12/01/20 Unknown Rx docusate sodium 100 mg PO BID 30 Days #60 cap 12/01/20 Unknown Rx fluticasone propion-salmeterol 2 ea INHALATION BID.RESPIRATORY 12/01/20 Unknown Rx [Advair Diskus] #60 ea nicotine 1 patch TRANSDERMAL DAILY #28 ea 12/01/20 Unknown Rx pantoprazole 40 mg PO DAILY 30 Days #30 tab 12/01/20 Unknown Rx polyethylene glycol 3350 17 g PO DAILY 30 Days #30 ea 12/01/20 Unknown Rx tiotropium bromide [Spiriva with 18 mcg INHALATION 12/01/20 Unknown Rx HandiHaler] DAILY.RESPIRATORY #30 inh zinc gluconate 50 mg PO DAILY 30 Days #30 tab 12/01/20 Unknown Rx Allergies Allergy/AdvReac Type Severity Reaction Status Date / Time hydromorphone [From Dilaudid] Allergy Unresponsiv Verified 12/08/20 19:11 e PFSH Acute PFSH: Medical History (Updated 12/08/20 @ 23:34 by Saundra Lambert MD) Arm DVT (deep venous thromboembolism), acute COVID-19 11/2020 COVID-19 vaccine dose not administered GERD (gastroesophageal reflux disease) Hepatitis C Nicotine dependence, cigarettes, uncomplicated Thrombocytopenia Surgical History No pertinent past surgical history Family History Denies family history of CAD (coronary artery disease) Bleeding disorder Lung disease Social History Smoking and tobacco status: current every day smoker Alcohol intake: never Household members: spouse Marital status: Vitals/I&O/Wt Last Vital Signs Temp 97.9 F 12/08/20 18:59 Pulse 99 12/08/20 22:00 Resp 21 H 12/08/20 22:00 BP 143/76 12/08/20 22:00 Pulse Ox 95 12/08/20 22:00 Weight last 48 hrs Weight 84.822 kg Weight 84.822 kg Physical Exam Narrative: EXAM NARRATIVE: General:awake, alert,oriented, anxious, no acute distress but appears deconditioned from recent acute illness. HEENT: PERRLA, pupils bilaterally equal and reactive, pallors not present Chest: Normal vesicular breath sounds, no added sounds, equal good air entry bilaterally CVS: S1-S2 regular, no murmurs, no tachycardia, no gallops, no rubs Abdomen: Soft, nontender, no organomegaly, bowel sounds present Neuro: No focal deficits, no facial deformity, AO x3, power 5/5 in all limbs Extremities: left upper arm warmer and more swollen compared to right arm, no distal neurovascular deficits , no current signs of compartment syndrome, limited ROM Data : 12/08/20 18:29 12/08/20 18:29 Micro: Microbiology 12/08/20 21:27 Blood Culture - Preliminary Blood SPECIMEN COLLECTED 12/08/20 21: Blood Culture - Preliminary Blood SPECIMEN COLLECTED A&P Assessment and plan (1) Arm DVT (deep venous thromboembolism), acute: 60-year-old male with recent COVID-19 infection currently presenting back with significant pain swelling and limited range of motion of the left arm. Left upper extremity ultrasound with DVT involving the axillary and brachial veins. Patient also complaining of left-sided chest pain which appears to be pleuritic in nature which raises high concern for PE. CTA of the chest was performed today, however could not be read conclusively due to poor opacification of the pulmonary arteries. Given his significant symptoms possibility of presumptive PE would not be unreasonable. Patient's oxygen requirement has remained stable since discharge. Started patient on heparin drip for the management of left upper arm DVT. Discussed with him that this is a very high risk intervention for him at this time given his chronic thrombocytopenia and possibility of subacute hematoma is noted in the subscapularis muscle. However with axillary DVT there is a high risk of progression to PE, if not already the case therefore weighing the risk benefit ratio would prefer to start anticoagulation with heparin and monitor closely for any signs of bleeding. Patient acknowledges understanding and wishes to proceed. His hemoglobin at this time is 11.9. Platelet count is at 53, on last admission this varied between 56-68. In April 2019 this was noted to be normal at 258. There are no interim labs. This is unlikely to be HIT as thrombocytopenia was already evident prior to being given any heparin products on last admission. Likely that this could be because of liver dysfunction and active hepatitis C. Negative HIV sero status Status: Acute Qualifiers: Laterality: left Qualified Code(s): I82.622 - Acute embolism and thrombosis of deep veins of left upper extremity (2) Thrombocytopenia: Likely to be related to active hepatitis C and liver dysfunction. Stable since last admission. Unlikely HIT given that platelet count was low at 65 upon admission on 816 prior to being given any heparin products. Patient did receive prophylaxis with Lovenox during the course of last admission. There has not been an over 50% drop over last admission therefore unlikely to be HIT. DIC panel with abnormal labs with INR at 1.27, fibrinogen at 1068, positive FDP, D-dimer 6.1, which could be related to DVT. Status: Acute Additional A&P Information Recent COVID-19 infection: CTA today shows persistence of extensive bilateral infiltrates, per my read stable to improving over the last CT. Continue nebulization with DuoNeb and budesonide while patient remains inpatient. Low suspicion for superadded bacterial pneumonia at this time given stable infiltrates, no fever, stable oxygen requirements. Attestations Medical Necessity Statement*: >2midnight admission anticipated for above defined care Coding Level of Care Code Acute Sheltered Workshop Executive Director for Chg Fwd Diagnoses Arm DVT (deep venous thromboembolism), acute I82.622 Laterality: left Thrombocytopenia D69.6
[2020-12-09] VITALS (22 sets, daily range): BP systolic 111–168; BP diastolic 55–89; PULSE 76–94; RESP 20–32; TEMP 36.7–37.4; O2SAT 90–100
[2020-12-09] MEDS: sodium chloride 0.9% 1,000 ML 100 ML IV ×3 (00:01→20:03)
[2020-12-09] MEDS: atorvastatin 40 mg Tablet PO ×2 (00:01→23:23)
[2020-12-09 00:14] LABS: Procalcitonin 0.19 ng/mL (0-0.5)
[2020-12-09] MEDS: morphine 4 mg/mL SDV 1 mL 2 MG IVP ×2 (01:01→21:26)
--- NOTE | 2020-12-09 01:15 | ECG_ITS ---
[facility] Test Date: 2020-12-09 Pat Name: Brian Ward Department: Room: 205 Gender: Male Supervisor Pumping: : 1960 Requested By: Giuseppe Serrano Order Number: [id number] Rj MD: Jc Marie M.D. Measurements Intervals [place] Rate: 90 P: 14 MN: 150 QRS: -5 QRSD: 110 T: 75 QT: 362 QTc: 444 Interpretive Statements SINUS RHYTHM INCOMPLETE RIGHT BUNDLE BRANCH BLOCK [90+ ms QRS DURATION, TERMINAL R IN V1/V2, 40+ ms S IN I/aVL/V4/V5/V6] NONSPECIFIC T-WAVE ABNORMALITY Compared to ECG 12/08/2020 21:07:23 No significant changes Electronically Signed On 12-09-2020 6:59:02 CDT by Jc Marie M.D. [id number]
[2020-12-09 02:06] LABS: Troponin 5 6HR 8.54 ng/L (0-15); Troponin 5 6HR Delta 0.54 ng/L (0-12)
[2020-12-09] MEDS: ipratropium-albuterol 3 mL Neb INHALATION ×3 (03:30→20:35)
[2020-12-09 04:44] LABS: Basophils % 0.1 %; Eosinophils % 0.3 %; Hematocrit 29.2 % (42.0-52.0); Hemoglobin 9.3 g/dL (11.7-16.6); Lymphocytes # 0.8 10^3/uL (0.8-4.8); Lymphocytes % 12.6 %; Mean Corpuscular HGB Conc 31.8 g/dL (30.0-36.0); Mean Corpuscular Hemoglobin 30.6 pg (28.0-34.0); Mean Corpuscular Volume 96.1 fl (80-94); Mean Platelet Volume 11.4 fL (7.4-10.4); Monocytes # 0.9 10^3/uL (0.2-0.9); Monocytes % 13.5 %; Neutrophils # 4.87 10^3/uL (1.8-7.7); Neutrophils % 73.1 %; Nucleated Red Blood Cells % 0 %; Platelet Count 42 10^3/cmm (130-400); Red Blood Count 3.04 10^6/uL (4.1-5.3); White Blood Count 6.7 10^3/uL (4.0-10.0)
[2020-12-09 05:25] LABS: Alanine Aminotransferase 69 U/L (0-41); Albumin Level 1.8 g/dL (3.5-5.2); Alkaline Phosphatase 190 IU/L (40-130); Anion Gap 12.2 (5-19); Aspartate Amino Transferase 90 U/L (0-40); Blood Urea Nitrogen 11 mg/dL (6-20); Calcium 6.8 mg/dL (8.5-10.5); Carbon Dioxide 22 mmol/L (22-29); Chloride 102 mmol/L (98-107); Glomerular Filtration Rate 170.2 mL/min (90-130); Glucose 90 mg/dL (65-115); Osmolality Calculated 275 mOsm/kg (285-295); Potassium 3.2 mmol/L (3.5-5.1); Sodium 133 mmol/L (136-145); Total Protein 5.8 g/dL (6.6-8.7)
--- NOTE | 2020-12-09 08:23 | PC.PHAR ---
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
--- NOTE | 2020-12-09 08:44 | PC.CHAP ---
Pastoral Care Encounter/Spiritual Assessment Type of Contact [] Declined longwall headgate operator visit [] Patient/Family/Request visit [] Outpatient visit [] Follow-up visit [] Physician referral [] Code/Alert [x] Routine visit [] Staff referral [] Actively dying [] Patient sleeping [] Family support [] [] Out of room [] Palliative care [] [] Receiving care in room [] Pre-surgical visit [] Trauma [] Long length of stay [] ICU visit [x] Other: 2a served breakfast Relational/Emotional Strength [] Patient feels connected with others/family/visitors/staff [] Distress [] Loneliness/isolation [] Abandonment Spirituality of Patient [] Person of Jazmine [] Attends Catholic of their Jazmine [] Believes in Prayer [] Reads Bible or Catholic materials [] There are Spiritual issues to be addressed Tobacco Stemmer Interventions [x] Prayer [] Active listening [] Non-anxious presence [] Spiritual/emotional support [] Crisis/trauma care [] Spiritual counseling [] Bereavement support [] Provided bereavement packet [] Provided Bible/devotional materials [] Provided toy/stuffed animal, coloring book to patient or family member [] Provided Communion [] Anointing/[place] [] Salvation [x] Completed spiritual assessment [] Other: Impact on Illness or Injury [] Angry [] Fearful [] Anxious [] Often cries [] Exhaustion [] Unable to work [] Unable to attend adventist [] Unable to walk/stand [] Unable to read [] Unable to drive [] Unable to eat/drink [] Unable to sleep [] Unable to be with family [] Patient intubated [] Other: Summary Time spent with patient
[2020-12-09] MEDS: pantoprazole DR 40 mg Tablet PO (08:49)
[2020-12-09] MEDS: aspirin 81 mg EC Tablet PO (08:49)
[2020-12-09] MEDS: budesonide 0.5 mg/2 mL Neb INHALATION ×2 (09:00→20:35)
[2020-12-09 09:08] LABS: Partial Thromboplastin Time 72.4 SECONDS (23.9-36.7)
[2020-12-09] MEDS: HYDROcodone-acetaminophen 5-325 mg Tablet 1 TAB PO (12:32)
[2020-12-09] MEDS: sodium chloride 0.9% (100 ml) 100 ML 150 ML (17:11)
[2020-12-09 18:02] LABS: Partial Thromboplastin Time 67.7 SECONDS (23.9-36.7)
--- NOTE | 2020-12-09 18:35 | PC.RESP ---
SMOKING CESSATION INFORMATION SENT TO PATIENT.
[2020-12-09] MEDS: heparin drip 25,000 UNIT/500 ML PREMIX 23.75 UNIT IV (18:36)
[2020-12-09] MEDS: lidocaine 5% Patch 1 PATCH TOPICAL (20:09)
--- NOTE | 2020-12-09 21:02 | PM.PN ---
Subjective Subjective: Interval history: He is bothered by persistent severe pain in his left upper arm. Says it is very painful to move his arm. He did not notice any bleeding. Discussed with him again regarding that he is currently on anticoagulation. Discussed with him that his platelet level has decreased to 40,000. Discussed with him regarding platelet transfusion to which she is agreeable. Vitals/I&O/Wt Last Vital Signs Temp 99.4 F 12/09/20 20:49 Pulse 92 12/09/20 20:49 Resp 30 H 12/09/20 20:49 BP 164/82 12/09/20 20:49 Pulse Ox 90 12/09/20 20:49 12/09/20 12/09/20 12/09/20 06:59 14:59 22:59 Intake Total 240 / 240 1550 / 1550 1694.792 / 3244.792 Output Total 250 / 250 300 / 300 300 / 600 Balance -10 / -10 1250 / 1250 1394.792 / 2644.792 Weight last 48 hrs Weight 84.822 kg Weight 84.822 kg Physical Exam Const: COMMON NORMALS: patient oriented x3 GENERAL APPEARANCE: not comfortable (Left arm pain) HENMT: COMMON NORMALS: oropharynx normal Neck/C-Spine: COMMON NORMALS: no JVD Resp: COMMON NORMALS: normal respiratory effort and clear to auscultation bilaterally AUSCULTATION: clear to auscultation bilaterally Cardio: COMMON NORMALS: no JVD, regular rhythm, S1 normal heart sound present, S2 normal heart sound present and No murmurs present (Cardio) RHYTHM: regular rhythm HEART SOUNDS: S1 normal heart sound present and S2 normal heart sound present GI: COMMON NORMALS: Normal to inspection, nondistended, normoactive bowel sounds present, Soft to palpation and non-tender PALPATION: Yes Soft to palpation Extremity: COMMON NORMALS: no pedal edema OTHER: I do not appreciate any redness or warmth over left shoulder or elbow. He reports quite a bit of pain in his left upper extremity. Pain appears to be also with passive ROM of shoulder, but also elbow. Not wrist. I do not see very impressive swelling, perhaps mild swelling around left shoulder compared to the right. No ecchymosis. No active bleeding. Neuro: COMMON NORMALS: patient oriented x3 and moves all extremities Skin: COMMON NORMALS: no rashes or lesions noted GENERAL SKIN EXAM: no rashes or lesions noted Data : 12/09/20 04:10 12/09/20 04:10 Micro: Microbiology 12/08/20 21:27 Blood Culture - Preliminary Blood SPECIMEN COLLECTED 12/08/20 21:21 Blood Culture - Preliminary Blood SPECIMEN COLLECTED A&P Assessment and plan (1) Arm DVT (deep venous thromboembolism), acute: He is bothered by quite a bit of pain in his left upper extremity. Particularly around the left shoulder, left upper arm, but also some pain left elbow. I do not see any particular redness, no palpable heat of the joints. Some swelling around the left shoulder. However, with as per discussion with him noted Low-density foci in the left subscapularis discussed consideration of hematomas, although cannot entirely rule out abscess, although this does seem less likely given lack of fever, no leukocytosis or other symptoms. So far nothing noted on Gram stain. Pending further blood culture results. His symptoms may well be related to left upper extremity DVT. However, he is agreeable interested in pursuing additional assessment, possibly by MRI if this can be arranged. Requested MRI left shoulder, left elbow. Discussed with him risks of bleeding also especially setting of consideration of possible hematomas, as well as chronically low platelets, currently with some decreased to 42,000. He is agreeable and interested in pursuing platelet transfusion which have been requested for him. Follow-up CBC has been requested. Add lidocaine patch. [place]. Status: Acute Qualifiers: Laterality: left Qualified Code(s): I82.622 - Acute embolism and thrombosis of deep veins of left upper extremity (2) Thrombocytopenia: Mother worsened today, which is discussed with him suspected to be most likely dilutional, with platelets down to 42,000. With positive balance of about 2.6 L. However, with consideration of possible hematomas, need for anticoagulation, additional arrangements are made for transfusion of platelets as above. Follow-up CBC. Doubted HIT given thrombocytopenia before he had received Lovenox during prior admission. Subsequently remained steady through that hospitalization. Repeat DIC panel. Status: Acute Additional A&P Information Recent COVID-19 infection: He otherwise in terms of oxygenation is doing well on 3 L nasal cannula support. Attestations Medical Necessity Statement*: Continue admission for assessment of management of upper extremity DVT, elevated risk, and cannot exclude possible PE, anticoagulation, but also with chronic thrombocytopenia, additionally possible hematomas of left subscapularis. Coding Level of Care Code Acute Traveling Storekeeper for Chg Fwd Diagnoses Arm DVT (deep venous thromboembolism), acute I82.622 Laterality: left Thrombocytopenia D69.6
[2020-12-10] VITALS (18 sets, daily range): BP systolic 143–183; BP diastolic 71–85; PULSE 70–96; RESP 16–30; TEMP 36.6–37.5; O2SAT 90–98
[2020-12-10 01:56] LABS: Eosinophils # 0.1 10^3/uL (0.0-0.8); Eosinophils % 1.2 %; Hematocrit 27.1 % (42.0-52.0); Hemoglobin 9.2 g/dL (11.7-16.6); Lymphocytes # 0.9 10^3/uL (0.8-4.8); Lymphocytes % 18.7 %; Mean Corpuscular HGB Conc 33.9 g/dL (30.0-36.0); Mean Corpuscular Hemoglobin 31.9 pg (28.0-34.0); Mean Corpuscular Volume 94.1 fl (80-94); Mean Platelet Volume 9.9 fL (7.4-10.4); Monocytes # 0.7 10^3/uL (0.2-0.9); Monocytes % 14.7 %; Neutrophils # 3.27 10^3/uL (1.8-7.7); Neutrophils % 65.2 %; Nucleated Red Blood Cells % 0 %; Platelet Count 86 10^3/cmm (130-400); Red Blood Count 2.88 10^6/uL (4.1-5.3)
[2020-12-10 02:11] LABS: INR 1.25 (0.8-1.2)
[2020-12-10 02:12] LABS: Fibrinogen 812 mg/dL (174-498)
[2020-12-10 02:18] LABS: Alanine Aminotransferase 77 U/L (0-41); Albumin Level 2.2 g/dL (3.5-5.2); Alkaline Phosphatase 197 IU/L (40-130); Anion Gap 12.9 (5-19); Aspartate Amino Transferase 96 U/L (0-40); Blood Urea Nitrogen 10 mg/dL (6-20); Calcium 8.4 mg/dL (8.5-10.5); Carbon Dioxide 24 mmol/L (22-29); Chloride 99 mmol/L (98-107); Globulin 4.6 g/dL (1.3-4.6); Glomerular Filtration Rate 137.9 mL/min (90-130); Glucose 148 mg/dL (65-115); Osmolality Calculated 276 mOsm/kg (285-295); Potassium 3.9 mmol/L (3.5-5.1); Sodium 132 mmol/L (136-145); Total Bilirubin 0.9 mg/dL (0.15-1.2); Total Protein 6.8 g/dL (6.6-8.7)
[2020-12-10 02:19] LABS: Partial Thromboplastin Time 73.8 SECONDS (23.9-36.7)
[2020-12-10] MEDS: morphine 4 mg/mL SDV 1 mL 2 MG IVP ×2 (02:19→07:33)
[2020-12-10 02:22] LABS: D Dimer 6.01 ug/mIFEU (0-0.59)
[2020-12-10] MEDS: ipratropium-albuterol 3 mL Neb INHALATION ×3 (02:49→14:40)
--- NOTE | 2020-12-10 06:07 | PC.NURSE ---
Shift Note Frequent safety and comfort rounds continue. Orders and/or nursing care completed as indicated. Patient monitored for response to intervention and treatment(s). Education provided includes potential reactions to blood products. Patient verbalized understanding. Will continue to monitor. During my first assessment patient stated he was not in any pain. When I went back in to hang his platelets he stated his pain was a 10/10 and would like medication. I told him I would check in his MAR and see what is available. When I left his room my other patient had a low oxygen sat and I went to their room to help. While I was helping my other patient he called his family and told them I was refusing to give him pain medication. I explained to the family that I had to help another patient and would get him pain medication as soon as I could. Morphine was then given to the patient.
[2020-12-10] MEDS: budesonide 0.5 mg/2 mL Neb INHALATION (08:30)
[2020-12-10] MEDS: HYDROcodone-acetaminophen 5-325 mg Tablet 1 TAB PO (08:30)
[2020-12-10] MEDS: morphine 4 mg/mL SDV 1 mL IVP ×3 (08:31→18:57)
--- NOTE | 2020-12-10 08:34 | PC.CHAP ---
Pastoral Care Encounter/Spiritual Assessment Type of Contact [] Declined prosthodontist/educator visit [] Patient/Family/Request visit [] Outpatient visit [] Follow-up visit [] Physician referral [] Code/Alert [x] Routine visit [] Staff referral [] Actively dying [x] Patient sleeping [] Family support [] [] Out of room [] Palliative care [] [] Receiving care in room [] Pre-surgical visit [] Trauma [] Long length of stay [] ICU visit [x] Other:2a served breakfast Relational/Emotional Strength [] Patient feels connected with others/family/visitors/staff [] Distress [] Loneliness/isolation [] Abandonment Spirituality of Patient [] Person of Jazmine [] Attends Latter-Day of their Jazmine [] Believes in Prayer [] Reads Bible or Hoahaoism materials [] There are Spiritual issues to be addressed Rebar Worker Interventions [x] Prayer [] Active listening [] Non-anxious presence [] Spiritual/emotional support [] Crisis/trauma care [] Spiritual counseling [] Bereavement support [] Provided bereavement packet [] Provided Bible/devotional materials [] Provided toy/stuffed animal, coloring book to patient or family member [] Provided Communion [] Anointing/[place] [] Salvation [x] Completed spiritual assessment [] Other: Impact on Illness or Injury [] Angry [] Fearful [] Anxious [] Often cries [] Exhaustion [] Unable to work [] Unable to attend christian [] Unable to walk/stand [] Unable to read [] Unable to drive [] Unable to eat/drink [] Unable to sleep [] Unable to be with family [] Patient intubated [] Other: Summary Time spent with patient
[2020-12-10] MEDS: aspirin 81 mg EC Tablet PO (09:20)
[2020-12-10] MEDS: pantoprazole DR 40 mg Tablet PO (09:20)
[2020-12-10] MEDS: lidocaine 5% Patch 1 PATCH TOPICAL ×2 (09:20→21:15)
--- NOTE | 2020-12-10 11:29 | US_ITS ---
WS: [id number] ULTRASOUND SOFT TISSUES LEFT scapular region. HISTORY: L shoulder - subscapular collections, severe shoulder pain COMPARISON: None available. TECHNIQUE: 2-D and color Doppler imaging is submitted. Hypoechoic ill-defined mass in the LEFT scapular region measures 18 x 18 mm. This probably correspond s to the low-attenuation seen on recent PET/CT. This is very difficult to characterize by ultrasound. US/US soft tissue/extremity 47404 IMPRESSION: Suspicious but very poorly visualized hypoechoic mass associated with the LEFT scapula. Suggest additional imaging evaluation for further characterization.
--- NOTE | 2020-12-10 11:35 | P.PN_ITS ---
Subjective Subjective: Interval history: This morning reports had a episode of severe pain of his left upper arm. Denies cramping. He cannot exactly describe the location. Certainly has quite a lot of pain and tenderness around the left bicep, but also has some tenderness on passive range of motion of the left elbow, as well as tenderness and pain over the left shoulder, on palpation, as well as with passive range of motion. Currently doing better after receiving pain medication. Afebrile. No chills. No trouble breathing. Vitals/I&O/Wt Last Vital Signs Temp 98.4 F 12/10/20 08:00 Pulse 88 12/10/20 08:30 Resp 18 12/10/20 08:31 BP 143/71 12/10/20 08:00 Pulse Ox 93 12/10/20 08:31 12/09/20 12/10/20 12/10/20 22:59 06:59 14:59 Intake Total 1694.792 / 3244.792 549 / 3793.792 120 / 120 Output Total 540 / 840 300 / 1140 500 / 500 Balance 1154.792 / 2404.792 249 / 2653.792 -380 / -380 Weight last 48 hrs Weight 84.822 kg Weight 84.822 kg Physical Exam Const: COMMON NORMALS: patient oriented x3 GENERAL APPEARANCE: not comfortable (Left arm pain) OTHER: Sleeping, wakes up to voice HENMT: COMMON NORMALS: oropharynx normal Neck/C-Spine: COMMON NORMALS: no JVD Resp: COMMON NORMALS: normal respiratory effort and clear to auscultation bilaterally AUSCULTATION: clear to auscultation bilaterally Cardio: COMMON NORMALS: no JVD, regular rhythm, S1 normal heart sound present, S2 normal heart sound present and No murmurs present (Cardio) RHYTHM: regular rhythm HEART SOUNDS: S1 normal heart sound present and S2 normal heart sound present GI: COMMON NORMALS: Normal to inspection, nondistended, normoactive bowel sounds present, Soft to palpation and non-tender PALPATION: Yes Soft to palpation Extremity: COMMON NORMALS: no pedal edema OTHER: No redness or warmth over left shoulder or elbow. Tender around bicep but also around L shouder. Mild swelling. No redness/warmth. Pain with passive ROM of shoulder, but also elbow. Not wrist. No ecchymosis. No active bleeding. Neuro: COMMON NORMALS: patient oriented x3 and moves all extremities Skin: COMMON NORMALS: no rashes or lesions noted GENERAL SKIN EXAM: no rashes or lesions noted Data : 12/10/20 01:40 12/10/20 01:40 Micro: Microbiology 12/08/20 21:27 Blood Culture - Preliminary Blood NEGATIVE TO DATE 12/08/20 21:21 Blood Culture - Preliminary Blood NEGATIVE TO DATE A&P Assessment and plan (1) Shoulder pain: Persistent left arm, bicep, left shoulder, but also left elbow pain. Reports episodic. This morning had a very bad episode. Denies cramping. R esponding to opioids. Some swelling noted in the left shoulder. No erythema. No warmth. He is afebrile, without leukocytosis. Lower suspicion for septic joint, however, cannot entirely exclude. As discussed with him. Discussed also collections in the subscapularis muscle. Again considered to be possibly some hematomas, however, abscess could not be excluded by imaging. Again given lack of SIRS, probably less likely. Discussing with MRI and they are unable to perform any imaging studies today during the day. He can be imaged possibly this evening. We are requesting the study. In the meantime additionally will request for ultrasound assessment if possible around the rotator cuff, although not sure if the collections may be well visualized with that. Otherwise continuing anticoagulation for DVT of left arm. Arm otherwise appears well perfused. There is no significant swelling. No changes in sensation. Lidocaine patch, for severe pain morphine. Status: Acute (2) Arm DVT (deep venous thromboembolism), acute: As above. Continue anticoagulation. Responded to platelet transfusion. Reassess blood count, platelet level. Would need to switch to oral anticoagulation prior to discharge. Status: Acute Qualifiers: Laterality: left Qualified Code(s): I82.622 - Acute embolism and thrombosis of deep veins of left upper extremity (3) Thrombocytopenia: Responded to platelet transfusion. Continuing on anticoagulation. Reassess CBC. Doubted HIT given thrombocytopenia before he had received Lovenox during prior admission. Subsequently remained steady through that hospitalization. Repeat DIC panel. Status: Acute Additional A&P Information Recent COVID-19 infection: He otherwise in terms of oxygenation is doing well on 3 L nasal cannula support. Attestations Medical Necessity Statement*: Continue assessment of severe left arm pain, anticoagulation initiation for DVT in the setting of thrombocytopenia. Possible hematomas or other collections and subscapularis. Coding Level of Care Code Acute Body Press Operator for [facility] Fwd Exam Comprehensive Diagnoses Shoulder pain M25.519 Arm DVT (deep venous thromboembolism), acute I82.622 Laterality: left Thrombocytopenia D69.6
[2020-12-10] MEDS: sodium chloride 0.9% 1,000 ML 100 ML IV ×2 (14:07→19:49)
--- NOTE | 2020-12-10 14:58 | PC.RESP ---
RT Shift Note Frequent safety and respiratory rounds continue. Orders completed as indicated. Patient monitored pre and post treatments throughout shift. Patient tolerated treatments appropriately. Condition did not change. Patient and/or sales representative health insurance educated on respiratory treatment and medications. Patient and/or sales representative health insurance verbalized understanding. Will continue to monitor patient progress.
[2020-12-10] MEDS: heparin drip 25,000 UNIT/500 ML PREMIX 23.75 UNIT IV (15:38)
--- NOTE | 2020-12-10 17:04 | MRR_ITS ---
PROCEDURE INFORMATION: Exam: MR Left Upper Extremity Other Than Joint Without and With Contrast, Humerus. Exam date and time: 12/10/2020 5:04 PM Age: 60 years old Clinical indication: Pain; Upper arm; Left; Patient HX: Possible sepsis/ active covid patient; Additional info: Severe pain L shouder, elbow, new subscapularis collections, assess if appearance of infection/joint involvement TECHNIQUE: Imaging protocol: MR of the Left upper extremity other than joint without and with intravenous contrast. Exam focused on the Humerus. Total images: 251 Contrast material: MULTIHANCE; Contrast volume: 19 ml; Contrast route: INTRAVENOUS (IV); COMPARISON: US soft tissue/extremity 14150 12/10/2020 2:53 PM FINDINGS: Bones/joints: Examination reveals a moderate volume left shoulder joint effusion that extends into the subscapular space. Subtle increase in marrow edema of the glenoid without visible cortical disruption. This could be reactive marrow edema from the adjacent joint effusion. Early osteomyelitis remains a differential consideration, however. Muscles: Increased signal of the subscapularis muscle suggesting active myositis. Soft tissues: Unremarkable. MR/MR humerus LT wo/w con [id number] IMPRESSION: 1. Examination reveals a moderate volume left shoulder joint effusion that extends into the subscapular space. 2. Subtle increase in marrow edema of the glenoid without visible cortical disruption. This could be reactive marrow edema from the adjacent joint effusion. Early osteomyelitis remains a differential consideration, however. 3. Increased signal of the subscapularis muscle suggesting active myositis.
[2020-12-10 18:42] LABS: Partial Thromboplastin Time 43.2 SECONDS (23.9-36.7)
--- NOTE | 2020-12-10 21:35 | PC.NURSE ---
Pt left for scan of left shoulder at 1900. Patient returned to the floor at 1999. Vitals are stable.
[2020-12-10] MEDS: atorvastatin 40 mg Tablet PO (23:03)
--- NOTE | 2020-12-10 23:51 | PC.NURSE ---
Critical lab result reported with positive blood cultures. Hospitalist notified.
[2020-12-11] VITALS (17 sets, daily range): BP systolic 138–176; BP diastolic 64–77; PULSE 72–96; RESP 18–36; TEMP 36.1–37.3; O2SAT 90–97
--- NOTE | 2020-12-11 | US_ITS ---
WS: [id number] ULTRASOUND GUIDED LEFT shoulder joint aspiration. HISTORY: Aspiration LEFT shoulder. Procedure, risks, and complications are explained to the patient. Consent was obtained. Skin is clean sed with ChloraPrep and anesthetized with 1% buffered lidocaine. History: LEFT joint effusion with pain and possible septic joint. There are multiple fluid collection s noted around the shoulder joint and within the infraspinatus muscle on prior imaging studies. Initial evaluation reveals a very complex cystic joint effusion surrounding the humeral head. Under sterile conditions and 18-gauge needle is inserted into the thick appearing complex material redmond rrounding the humeral head. Very little aspirate was obtained. Sufficient aspirate was placed in a st erile cup and sent for culture and sensitivity. Multiple attempts at aspirating the complex material performed. No complications were encountered. The aspirate will be sent for culture and sensitivity. US/ guide needle [facility] [id number] IMPRESSION: 1. Ultrasound-guided aspiration of LEFT shoulder complex joint effusion. Very little aspirate was obtained as this is a very thick complex effusion. 2. Aspirate was sent for culture and sensitivity as requested.
--- NOTE | 2020-12-11 00:57 | PC.PHAR ---
Vancomycin is dosed at 1gm IVPB every 8 hours to produce a predicted trough level of 13.10 (population based pharmacokinetic analysis). A trough level has been ordered from the lab to be obtained before the fourth dose to confirm and adjust if needed.
[2020-12-11] MEDS: cefTRIAXone 1,000 MG in sodium chloride 0.9% (plus) 50 ML 100 MG IV (01:22)
[2020-12-11] MEDS: vancomycin 1,000 MG in sodium chloride 0.9% 250 ML 250 MG IV ×3 (02:06→17:35)
[2020-12-11] MEDS: sodium chloride 0.9% 1,000 ML 100 ML IV (02:07)
[2020-12-11] MEDS: morphine 4 mg/mL SDV 1 mL IVP ×3 (03:52→23:03)
[2020-12-11 06:22] LABS: Basophils % 0.2 %; Eosinophils # 0.1 10^3/uL (0.0-0.8); Eosinophils % 1.7 %; Hematocrit 25.5 % (42.0-52.0); Hemoglobin 8.5 g/dL (11.7-16.6); Lymphocytes # 1.2 10^3/uL (0.8-4.8); Mean Corpuscular HGB Conc 33.3 g/dL (30.0-36.0); Mean Corpuscular Volume 95.9 fl (80-94); Mean Platelet Volume 10.4 fL (7.4-10.4); Monocytes # 0.9 10^3/uL (0.2-0.9); Monocytes % 16.1 %; Neutrophils # 3.23 10^3/uL (1.8-7.7); Neutrophils % 59.6 %; Nucleated Red Blood Cells % 0 %; Platelet Count 85 10^3/cmm (130-400); Red Blood Count 2.66 10^6/uL (4.1-5.3); Red Cell Distribution Width 13.1 % (12.1-15.1); White Blood Count 5.4 10^3/uL (4.0-10.0)
--- NOTE | 2020-12-11 06:28 | PC.NURSE ---
Shift note: Patient went to MRI to scan left shoulder. Patient still having increased episodes of pain. Patient also had positive blood culture and was started on antibiotics.
[2020-12-11 06:41] LABS: Partial Thromboplastin Time 80.2 SECONDS (23.9-36.7)
[2020-12-11 06:46] LABS: Alanine Aminotransferase 69 U/L (0-41); Albumin Level 1.8 g/dL (3.5-5.2); Alkaline Phosphatase 158 IU/L (40-130); Anion Gap 11.5 (5-19); Aspartate Amino Transferase 81 U/L (0-40); Blood Urea Nitrogen 10 mg/dL (6-20); Calcium 7.1 mg/dL (8.5-10.5); Carbon Dioxide 22 mmol/L (22-29); Chloride 105 mmol/L (98-107); Globulin 3.8 g/dL (1.3-4.6); Glomerular Filtration Rate 137.9 mL/min (90-130); Glucose 102 mg/dL (65-115); Osmolality Calculated 279 mOsm/kg (285-295); Potassium 3.5 mmol/L (3.5-5.1); Sodium 135 mmol/L (136-145); Total Bilirubin 0.7 mg/dL (0.15-1.2); Total Protein 5.6 g/dL (6.6-8.7)
[2020-12-11] MEDS: aspirin 81 mg EC Tablet PO (08:05)
[2020-12-11] MEDS: pantoprazole DR 40 mg Tablet PO (08:05)
[2020-12-11] MEDS: ipratropium-albuterol 3 mL Neb INHALATION ×2 (08:10→20:10)
[2020-12-11] MEDS: budesonide 0.5 mg/2 mL Neb INHALATION ×2 (08:10→20:10)
--- NOTE | 2020-12-11 08:31 | PC.CHAP ---
Pastoral Care Encounter/Spiritual Assessment Type of Contact [] Declined contractor buyer visit [] Patient/Family/Request visit [] Outpatient visit [] Follow-up visit [] Physician referral [] Code/Alert [x] Routine visit [] Staff referral [] Actively dying [] Patient sleeping [] Family support [] [] Out of room [] Palliative care [] [] Receiving care in room [] Pre-surgical visit [] Trauma [] Long length of stay [] ICU visit [x Other: 2a served breakfast...on phone Relational/Emotional Strength [] Patient feels connected with others/family/visitors/staff [] Distress [] Loneliness/isolation [] Abandonment Spirituality of Patient [] Person of Jazmine [] Attends Restorationism of their Jazmien [] Believes in Prayer [] Reads Bible or Uatsdin materials [] There are Spiritual issues to be addressed Internal Medicine Doctor Interventions [x] Prayer [] Active listening [] Non-anxious presence [] Spiritual/emotional support [] Crisis/trauma care [] Spiritual counseling [] Bereavement support [] Provided bereavement packet [] Provided Bible/devotional materials [] Provided toy/stuffed animal, coloring book to patient or family member [] Provided Communion [] Anointing/[place] [] Salvation [x] Completed spiritual assessment [] Other: Impact on Illness or Injury [] Angry [] Fearful [] Anxious [] Often cries [] Exhaustion [] Unable to work [] Unable to attend synagogue [] Unable to walk/stand [] Unable to read [] Unable to drive [] Unable to eat/drink [] Unable to sleep [] Unable to be with family [] Patient intubated [] Other: Summary Time spent with patient
[2020-12-11] MEDS: HYDROcodone-acetaminophen 5-325 mg Tablet 1 TAB PO ×2 (10:16→21:47)
--- NOTE | 2020-12-11 10:45 | PC.NURSE ---
Dr Mcdonald at bedside explaining CT guided shoulder aspiration and biopsy procedure to patient and what MRI from yesterday had shown. Pt verbalizes understanding. At this time, Dr. Mcdonald had this nurse stop his heparin drip due to the need for CT biopsy.
--- NOTE | 2020-12-11 11:03 | US_ITS ---
WS: [id number] ULTRASOUND GUIDED LEFT shoulder joint aspiration. HISTORY: Aspiration LEFT shoulder. Procedure, risks, and complications are explained to the patient. Consent was obtained. Skin is clean sed with ChloraPrep and anesthetized with 1% buffered lidocaine. History: LEFT joint effusion with pain and possible septic joint. There are multiple fluid collection s noted around the shoulder joint and within the infraspinatus muscle on prior imaging studies. Initial evaluation reveals a very complex cystic joint effusion surrounding the humeral head. Under sterile conditions and 18-gauge needle is inserted into the thick appearing complex material redmond rrounding the humeral head. Very little aspirate was obtained. Sufficient aspirate was placed in a st erile cup and sent for culture and sensitivity. Multiple attempts at aspirating the complex material performed. No complications were encountered. The aspirate will be sent for culture and sensitivity.
[2020-12-11 13:02] LABS: Partial Thromboplastin Time 37.6 SECONDS (23.9-36.7)
[2020-12-11 14:26] LABS: Partial Thromboplastin Time 36.7 SECONDS (23.9-36.7)
--- NOTE | 2020-12-11 15:05 | PC.NURSE ---
Dr. Hernandez at bedside to complete Ultrasound guided drainage of left shoulder.
--- NOTE | 2020-12-11 15:40 | PC.OT ---
OT TREATMENT WITHHELD DUE TO BIOPSY. WILL ATTEMPT AGAIN TOMORROW.
[2020-12-11 15:45] LABS: Appearance Synovial Fluid BLOODY (CLEAR); Color Synovial Fluid RED (PALE YELLOW); PATH Referal YES
[2020-12-11 16:32] LABS: Crystals, Fluid See Path Consult
--- NOTE | 2020-12-11 21:06 | PM.PN ---
Subjective Subjective: Interval history: Left arm pain perhaps slightly better today. Persistent. Discussed with him regarding results of the MRI. As well as concern of possible bacteremia with noted gram-positive cocci in 2 bottles and 1 set from admission. Discussed with him regarding holding heparin drip, and as per orthopedic recommendation seeking CT-guided aspiration of collection of fluid either from the shoulder or surrounding collections. Discussed concern in case of infection need for treatment, risk of septic embolic spread, severe illness, sepsis, disability, . He verbalized understanding. Vitals/I&O/Wt Last Vital Signs Temp 98.3 F 12/11/20 15:56 Pulse 72 12/11/20 15:56 Resp 18 12/11/20 15:56 BP 150/64 12/11/20 15:56 Pulse Ox 91 12/11/20 15:56 12/11/20 12/11/20 12/11/20 06:59 14:59 22:59 Intake Total 1330 / 2819.542 1370 / 1370 730 / 2100 Output Total 650 / 2025 200 / 200 500 / 700 Balance 680 / 633.622 9692 / 1170 230 / 1400 Physical Exam Const: COMMON NORMALS: no acute distress and patient oriented x3 GENERAL APPEARANCE: not comfortable (Left arm pain) OTHER: Sleeping, wakes up to voice HENMT: COMMON NORMALS: oropharynx normal Neck/C-Spine: COMMON NORMALS: no JVD Resp: COMMON NORMALS: normal respiratory effort and clear to auscultation bilaterally AUSCULTATION: clear to auscultation bilaterally Cardio: COMMON NORMALS: no JVD, regular rhythm, S1 normal heart sound present, S2 normal heart sound present and No murmurs present (Cardio) RHYTHM: regular rhythm HEART SOUNDS: S1 normal heart sound present and S2 normal heart sound present GI: COMMON NORMALS: Normal to inspection, nondistended, normoactive bowel sounds present, Soft to palpation and non-tender PALPATION: Yes Soft to palpation Extremity: COMMON NORMALS: no joint enlargement and no pedal edema OTHER: No redness or warmth over left shoulder or elbow. Tender around bicep but also around L shouder. Mild swelling. No redness/warmth. Pain with passive ROM of shoulder, but also elbow. Not wrist. No ecchymosis. No active bleeding. Neuro: COMMON NORMALS: patient oriented x3 and moves all extremities Skin: COMMON NORMALS: no rashes or lesions noted GENERAL SKIN EXAM: no rashes or lesions noted Data : 12/11/20 05:50 12/11/20 05:50 Micro: Microbiology 12/11/20 15:11 Gram Stain - Final Synovial Fluid 12/08/20 21:21 Blood Culture - Preliminary Blood A&P Assessment and plan (1) Shoulder pain: Overnight started on antibiotics secondary to gram-positive cocci in 2/2 bottles on Gram stain in the same side, as well as MRI findings. Noted to have joint effusion left shoulder extending into subscapular space. Subtle marrow edema. Early osteomyelitis could not be excluded. Discussed findings with orthopedics this morning, as well as with him, his . Discussed with cannot exclude joint infection, although at least initially that appeared to be much less likely given lack of fever, cytosis, erythema, warmth around the joint at presentation. As per orthopedic recommendation additional assessment with CT-guided aspiration had been sought after holding heparin drip. Noted bloody fluid, thick on aspiration, so only small amount was obtained. Gram stain without organisms with moderate WBC. Discussing with the lab, cell counts could not be obtained due to clotting of the sample. He has been referred to pathology. Culture is pending. Discussed again with his , orthopedics. At this time recommendation is to continue antibiotics. So far we do not have strong indication that there is septic joint, but again this has not so far yet been entirely excluded. As per discussion with orthopedics, continuation of anticoagulation at the current time is thought to have less potential harm as opposed to possible complications from an SVC filter. Resumed without bolus. Follow-up aspirate and blood cultures. Lidocaine patch, for severe pain morphine. Status: Acute (2) Arm DVT (deep venous thromboembolism), acute: As above. Continue anticoagulation. Responded to platelet transfusion. Reassess blood count, platelet level. Would need to switch to oral anticoagulation prior to discharge. Status: Acute Qualifiers: Laterality: left Qualified Code(s): I82.622 - Acute embolism and thrombosis of deep veins of left upper extremity (3) Thrombocytopenia: Responded to platelet transfusion. Continuing on anticoagulation. Reassess CBC. Doubted HIT given thrombocytopenia before he had received Lovenox during prior admission. Subsequently remained steady through that hospitalization. Repeat DIC panel. Status: Acute Additional A&P Information Recent COVID-19 infection: He otherwise in terms of oxygenation is doing well on 3 L nasal cannula support. Attestations Medical Necessity Statement*: Continue admission for additional assessment management of joint effusion and subscapular area collections. Left arm DVT. In the setting of recent COVID-19 infection. Coding Level of Care Code Acute Surveillance Supervisor for [facility] Fwd Diagnoses Shoulder pain M25.519 Arm DVT (deep venous thromboembolism), acute I82.622 Laterality: left Thrombocytopenia D69.6
[2020-12-11] MEDS: lidocaine 5% Patch 1 PATCH TOPICAL (21:46)
[2020-12-11] MEDS: atorvastatin 40 mg Tablet PO (22:50)
[2020-12-11] MEDS: acetaminophen 325 mg Tablet 650 MG PO (22:50)
[2020-12-12] VITALS (11 sets, daily range): BP systolic 134–178; BP diastolic 80–87; PULSE 71–87; RESP 18–28; TEMP 36.6–37.1; O2SAT 86–96
[2020-12-12 00:59] LABS: Basophils % 0.2 %; Eosinophils # 0.1 10^3/uL (0.0-0.8); Eosinophils % 3.1 %; Hematocrit 27.4 % (42.0-52.0); Hemoglobin 9.1 g/dL (11.7-16.6); Lymphocytes % 22.6 %; Mean Corpuscular HGB Conc 33.2 g/dL (30.0-36.0); Mean Corpuscular Hemoglobin 31.6 pg (28.0-34.0); Mean Corpuscular Volume 95.1 fl (80-94); Mean Platelet Volume 10.2 fL (7.4-10.4); Monocytes # 0.8 10^3/uL (0.2-0.9); Monocytes % 18.6 %; Neutrophils # 2.35 10^3/uL (1.8-7.7); Neutrophils % 55.3 %; Nucleated Red Blood Cells % 0 %; Platelet Count 64 10^3/cmm (130-400); Red Blood Count 2.88 10^6/uL (4.1-5.3); White Blood Count 4.3 10^3/uL (4.0-10.0)
[2020-12-12 01:09] LABS: INR 1.24 (0.8-1.2)
[2020-12-12 01:10] LABS: Partial Thromboplastin Time 39.2 SECONDS (23.9-36.7)
[2020-12-12 01:11] LABS: Fibrinogen 719 mg/dL (174-498)
[2020-12-12] MEDS: cefTRIAXone 1,000 MG in sodium chloride 0.9% (plus) 50 ML 100 MG IV (01:12)
[2020-12-12 01:16] LABS: Alanine Aminotransferase 82 U/L (0-41); Alkaline Phosphatase 187 IU/L (40-130); Anion Gap 13.6 (5-19); Aspartate Amino Transferase 84 U/L (0-40); Blood Urea Nitrogen 8 mg/dL (6-20); Carbon Dioxide 23 mmol/L (22-29); Chloride 101 mmol/L (98-107); Globulin 4.4 g/dL (1.3-4.6); Glomerular Filtration Rate 137.9 mL/min (90-130); Glucose 126 mg/dL (65-115); Osmolality Calculated 278 mOsm/kg (285-295); Potassium 3.6 mmol/L (3.5-5.1); Sodium 134 mmol/L (136-145); Total Bilirubin 0.7 mg/dL (0.15-1.2); Total Protein 6.4 g/dL (6.6-8.7)
[2020-12-12 01:42] LABS: Slide Review Slide Review Perform
[2020-12-12 01:46] LABS: D Dimer 10.57 ug/mIFEU (0-0.59)
[2020-12-12 01:56] LABS: Vancomycin Trough 13.6 ug/mL (10-15)
[2020-12-12] MEDS: vancomycin 1,000 MG in sodium chloride 0.9% 250 ML 250 MG IV ×3 (02:14→17:33)
[2020-12-12] MEDS: ipratropium-albuterol 3 mL Neb INHALATION ×3 (02:55→15:07)
[2020-12-12] MEDS: aspirin 81 mg EC Tablet PO (08:19)
[2020-12-12] MEDS: pantoprazole DR 40 mg Tablet PO (08:19)
[2020-12-12] MEDS: budesonide 0.5 mg/2 mL Neb INHALATION (09:15)
[2020-12-12] MEDS: HYDROcodone-acetaminophen 5-325 mg Tablet 1 TAB PO ×3 (10:22→23:37)
--- NOTE | 2020-12-12 11:56 | PM.PN ---
Subjective Subjective: Interval history: Denies any changes today. Discussed with him his speaker phone but we have discussed an update on the blood culture with gram-positive cocci identified as staph aureus in 1/2 bottles. Culture from the shoulder with no organisms on Gram stain, so far no growth. Discussed we are not reaching out with the update to Ortho. Vitals/I&O/Wt Last Vital Signs Temp 98.2 F 12/12/20 08:00 Pulse 81 12/12/20 08:51 Resp 20 H 12/12/20 08:51 BP 134/85 12/12/20 08:00 Pulse Ox 92 12/12/20 08:51 12/11/20 12/12/20 12/12/20 22:59 06:59 14:59 Intake Total 1210 / 3063.708 660 / 3723.708 120 / 120 Output Total 840 / 1040 500 / 1540 300 / 300 Balance 370 / 2023.708 160 / 2183.708 -180 / -180 Physical Exam Const: COMMON NORMALS: no acute distress and patient oriented x3 GENERAL APPEARANCE: not comfortable (Left arm pain) OTHER: Sleeping, wakes up to voice HENMT: COMMON NORMALS: oropharynx normal Neck/C-Spine: COMMON NORMALS: no JVD Resp: COMMON NORMALS: normal respiratory effort and clear to auscultation bilaterally AUSCULTATION: clear to auscultation bilaterally Cardio: COMMON NORMALS: no JVD, regular rhythm, S1 normal heart sound present, S2 normal heart sound present and No murmurs present (Cardio) RHYTHM: regular rhythm HEART SOUNDS: S1 normal heart sound present and S2 normal heart sound present GI: COMMON NORMALS: Normal to inspection, nondistended, normoactive bowel sounds present, Soft to palpation and non-tender PALPATION: Yes Soft to palpation Extremity: COMMON NORMALS: no joint enlargement and no pedal edema OTHER: No redness or warmth over left shoulder or elbow. Tender around bicep but also around L shouder. Mild swelling. No redness/warmth. Pain with passive ROM of shoulder, but also elbow. Not wrist. No ecchymosis. No active bleeding. Neuro: COMMON NORMALS: patient oriented x3 and moves all extremities Skin: COMMON NORMALS: no rashes or lesions noted GENERAL SKIN EXAM: no rashes or lesions noted Data : 12/12/20 00:48 12/12/20 00:48 Micro: Microbiology 12/08/20 21:21 Blood Culture - Preliminary Blood Staphylococcus aureus 12/11/20 15:11 Gram Stain - Final Synovial Fluid A&P Assessment and plan (1) Shoulder pain: Gram stain without organisms from the shoulder aspiration. BCx with Staph aureus 1/2 bottles from 12/08 culture. Appreciate additional orthopedics recommendations on reassessment. Overnight started on antibiotics secondary to gram-positive cocci in 2/2 bottles on Gram stain in the same side, as well as MRI findings. Noted to have joint effusion left shoulder extending into subscapular space. Subtle marrow edema. Follow-up aspirate and blood cultures. Lidocaine patch, for severe pain morphine. Status: Acute (2) Arm DVT (deep venous thromboembolism), acute: As above. Continue anticoagulation. Responded to platelet transfusion. Reassess blood count, platelet level. Would need to switch to oral anticoagulation prior to discharge. Status: Acute Qualifiers: Laterality: left Qualified Code(s): I82.622 - Acute embolism and thrombosis of deep veins of left upper extremity (3) Thrombocytopenia: Responded to platelet transfusion. Continuing on anticoagulation. Reassess CBC. Doubted HIT given thrombocytopenia before he had received Lovenox during prior admission. Subsequently remained steady through that hospitalization. Repeat DIC panel. Status: Acute Additional A&P Information Recent COVID-19 infection: He otherwise in terms of oxygenation is doing well on 3 L nasal cannula support. HCV Mild rash, maculopapular, circumscribed to the shape of telemetry lead cooperative education director the right side of the abdomen. Left side slightly more diffuse, large area over the left lower chest/flank. States he also had a sticker there previously. Added adhesive's possible allergy. Attestations Medical Necessity Statement*: Continue admission for assessment of management of supports bacteremia, shoulder pain, effusion, tracking to subscapular space. Left arm DVT with thrombocytopenia. 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
--- NOTE | 2020-12-12 12:51 | P.CONIM_ITS ---
Providers/Reason For Consult Consulting Physician/Specialty*: hospitalist Reason for Consult*: left shoulder pain Attending Physician: Butch Mcdonald History of Present Illness History of Present Illness Brian Ward is a 60 year old male GERD, has not received the Covid vaccine, recently admitted here between 11/25-12/01 for acute hypoxic respiratory failure secondary COVID-19 pneumonia, patient was managed in the Covid unit, on high flow oxygen, with remdesivir, Decadron, broad-spectrum antibiotic therapy, Advair, Spiriva, albuterol, pulmonary toilet and clinically monitored. Patient had a slow clinical progress, he was eventually weaned down to 4 L at rest, 6 L with exertion, clinically improving, remained afebrile, ambulating without significant hematology. Patient has been discharged on Advair, Spiriva, albuterol, with close follow-up with primary care provider as outpatient. Patient was found to have hepatitis C infection as well with + hep c screen and + HCV RNA, chronic thrombocytopenia, likely secondary to hepatitis C, hepatomegaly,referred to see hematology as outpatient. He returns today with left upper extremity pain, limited ROM. Also c/o left sided chest pain which appeats to be pleuritic in nature. UE duplex revealed acute DVT in the left axillary and brachial veins. CTA PE was inconclusive due to poor opacification of the pulmonary arteries. Extensive B/L pulmonary infiltrates overall unchanged to improving per my read from last CT few days ago. Incidentally notedd 3 low density foci in left subscapularis muscle measuring up to 2.5 cm- abscess vs subacute/chronic hematomas. Latter finding not specifically described on CT from 11/26. Pt having shoulder pain; culture taken negative so far; MRI with fluid in left shoulder tracking along subscapularis Review of Systems General: Reports: 10 or more systems reviewed and unremarkable except in HPI and below Const: Denies: fever(s), chills, body aches or diaphoresis Eyes: Denies: change in vision, blurry vision or photophobia ENMT: Reports: hoarseness; Denies: throat pain, enlarged tonsils, odynophagia or nasal congestion Card: Denies: chest pain, palpitations, irregular heart rhythm, edema, swelling of feet/ankles, lightheadedness, pre-syncope, dyspnea on exertion or orthopnea Resp: Denies: dyspnea, productive cough, non-productive cough, wheezing, stridor, pain on inspiration, change in phlegm color, hemoptysis or chest con gestion GI: Denies: abdominal pain, nausea, vomiting, hematemesis, coffee ground emesis, dysphagia, heartburn, diarrhea, constipation, GI cramping, change in stool character, hematochezia or melena : Denies: flank pain, dysuria, urinary frequency, urinary urgency, urinary hesitancy or hematuria Musc: Denies: neck pain, back pain, extremity pain, joint swelling, joint warmth or deformity Neuro: Denies: headache(s), numbness in extremities, weakness in extremities, sensory changes, difficulty walking, frequent falls, dizziness, vertigo, behavioral changes, Slurred speech present or seizure-like activity Psych: Denies: anxiety, depression, suicidal ideation or homicidal ideation Endo: Denies: polyuria, polydipsia, tired all the time, cold intolerance or hot flashes [place]/Lymph: Denies: easy bruising or easy bleeding Meds/Allergies Home Medications and Allergies Home Medications Medication Instructions Recorded Confirmed Last Taken Type albuterol sulfate [Ventolin HFA] 2 puff INHALATION Q4H.RESPIRATORY 12/01/20 12/09/20 Unknown Rx PRN #8.5 g ascorbic acid (vitamin C) [Vitamin 500 mg PO BID 30 Days #60 tab 12/01/20 12/09/20 Unknown Rx C] benzonatate 100 mg PO TID PRN 15 Days #45 cap 12/01/20 12/09/20 Unknown Rx docusate sodium 100 mg PO BID 30 Days #60 cap 12/01/20 12/09/20 Unknown Rx pantoprazole 40 mg PO DAILY 30 Days #30 tab 12/01/20 12/09/20 Unknown Rx polyethylene glycol 3350 17 g PO DAILY 30 Days #30 ea 12/01/20 12/09/20 Unknown Rx zinc gluconate 50 mg PO DAILY 30 Days #30 tab 12/01/20 12/09/20 Unknown Rx aspirin [Aspir-81] 81 mg PO QAM 12/09/20 12/09/20 Unknown History atorvastatin 40 mg PO QAM 12/09/20 12/09/20 Unknown History cholecalciferol (vitamin D3) 25 mcg PO QAM 12/09/20 12/09/20 Unknown History [Vitamin D3] fluticasone propion-salmeterol 2 inh INHALATION BID 12/09/20 12/09/20 Unknown History [Advair Diskus] ibuprofen 400 mg PO Q4H PRN 12/09/20 12/09/20 Unknown History omeprazole [Prilosec] 20 mg PO DAILY 12/09/20 12/09/20 Unknown History tiotropium bromide [Spiriva with 1 cap INHALATION DAILY 12/09/20 12/09/20 Unknown History HandiHaler] Allergies Allergy/AdvReac Type Severity Reaction Status Date / Time adhesive Allergy Mild ALGY-Rash Verified 12/12/20 12:36 hydromorphone [From Dilaudid] Allergy Unresponsiv Verified 12/09/20 08:23 e Current Medications Current Medications Generic Name Dose Route Start Last Admin Trade Name Freq PRN Reason Stop Dose Admin Acetaminophen 650 mg 12/08/20 23:43 12/11/20 22:50 Acetaminophen 325 Mg Tablet PO 650 mg Q6H PRN Administration Mild/Mod Pain Or Temp >/= 101 Hydrocodone Bitart/Acetaminophen 1 tab 12/12/20 10:07 12/12/20 10:22 Hydrocodone-Acetaminophen 5-325 Mg Tablet PO 1 tab Q4H PRN Administration MODERATE PAIN Albuterol/Ipratropium 3 ml 12/08/20 23:45 12/12/20 09:16 Ipratropium-Albuterol 3 Ml Neb INHALATION 3 ml Q6H.RESPIRATORY LIBIA Administration Aspirin 81 mg 12/09/20 09:00 12/12/20 08:19 Aspirin 81 Mg Ec Tablet PO 81 mg DAILY LIBIA Administration Atorvastatin Calcium 40 mg 12/08/20 23:45 12/11/20 22:50 Atorvastatin 40 Mg Tablet PO 40 mg Q24H LIBIA Administration Budesonide 0.5 mg 12/09/20 08:00 12/12/20 09:15 Budesonide 0.5 Mg/2 Ml Neb INHALATION 0.5 mg BID.RESPIRATORY LIBIA Administration Heparin Sodium (Beef Lung) 0 unit 12/08/20 21:53 12/08/20 22:05 Heparin 5,000 Unit/Ml Inj 1 Ml IV 4,200 unit PRN PRN Administration Heparin weight-base protocol Protocol Heparin Sodium/Sodium Chloride 25,000 unit in 500 mls @ 0 mls/hr 12/08/20 22:00 12/11/20 12:00 Heparin Drip IV 0 unit/kg/hr .Q0M LIBIA 0 mls/hr Titration Protocol Per Protocol Vancomycin HCl 1,000 mg/ 250 mls @ 250 mls/hr 12/11/20 02:00 12/12/20 11:22 Sodium Chloride IV Infused Q8H LIBIA Infusion Protocol As Directed Ceftriaxone Sodium 1,000 mg/ 50 mls @ 100 mls/hr 12/11/20 01:00 12/12/20 02:02 Sodium Chloride IV Infused Q24H LIBIA Infusion Protocol Lidocaine 1 patch 12/09/20 21:00 12/12/20 08:19 Lidocaine 5% Patch TOPICAL Not Given [id number] ON LICENSE OF [facility] Lidocaine HCl 1 applic 12/09/20 14:47 12/09/20 17:11 Lidocaine 2% Jelly 5 Ml TOPICAL 1 applic PRN PRN Administration blood draw Morphine Sulfate 4 mg 12/10/20 12:00 12/11/20 23:03 Morphine 4 Mg/Ml Sdv 1 Ml IVP 4 mg Q4H PRN Administration SEVERE PAIN Nicotine 1 patch 12/09/20 09:00 12/12/20 08:19 Nicotine 14 Mg Patch TRANSDERMA Not Given DAILY ON LICENSE OF [facility] Pantoprazole Sodium 40 mg 12/09/20 09:00 12/12/20 08:[address] 40 Mg Tablet PO 40 mg DAILY LIBIA Administration PFSH Acute PFSH: Medical History (Updated 12/10/20 @ 12:31 by Butch Mcdonald MD) Arm DVT (deep venous thromboembolism), acute COVID-19 11/2020 COVID-19 vaccine dose not administered GERD (gastroesophageal reflux disease) Hepatitis C Nicotine dependence, cigarettes, uncomplicated Thrombocytopenia Surgical History No pertinent past surgical history Family History Denies family history of CAD (coronary artery disease) Bleeding disorder Lung disease Social History Smoking and tobacco status: current every day smoker Alcohol intake: never Household members: spouse Marital status: Vitals/I&O/Wt Last Vital Signs Temp 98.1 F 12/12/20 12:00 Pulse 79 12/12/20 12:00 Resp 24 H 12/12/20 12:00 BP 167/83 12/12/20 12:00 Pulse Ox 95 12/12/20 12:00 12/11/20 12/12/20 12/12/20 22:59 06:59 14:59 Intake Total 1210 / 3063.708 660 / 3723.708 370 / 370 Output Total 840 / 1040 500 / 1540 300 / 300 Balance 370 / 2023.708 160 / 2183.708 70 / 70 Physical Exam Const: COMMON NORMALS: no acute distress, average body habitus and patient oriented x3 Neck/C-Spine: COMMON NORMALS: full ROM, no lymphadenopathy and no JVD Chest: COMMONS NORMALS: normal inspection of the chest CHEST: Yes Symmetrical chest wall rise Resp: COMMON NORMALS: normal respiratory effort and No retractions Cardio: COMMON NORMALS: no JVD and regular rate JUGULAR VENOUS DISTENTION: no JVD RATE: regular rate Back/Pelvis: THORACIC SPINE/UPPER BACK: Yes normal to inspection LUMBAR SPINE/LOWER BACK: Yes normal to inspection Extremity: NARRATIVE EXTREMITY EXAM: left shoulder painful to ROM EXTREMITY IMAGE (FRONT): 1. Neuro: COMMON NORMALS: patient oriented x3 Data Micro: Micro: Microbiology 12/08/20 21:21 Blood Culture - Pr eliminary Blood Staphylococcus aureus 12/11/20 15:11 Gram Stain - Final Synovial Fluid A&P Assessment and plan (1) Shoulder pain: do to complexity of infection and DVT, thrombocytopenia, and COVID would recommend tranfer for higher level of complexity. If unable to transfer will attempt wash out of joint but wont be able to reach anteriorly in subscap area Status: Acute Consult Attestations Medical Necessity Statement: pain Coding Level of Care Code Acute Computer Technologist for Chg Fwd Diagnoses Shoulder pain M25.519
--- NOTE | 2020-12-12 13:24 | PM.TDS ---
Transfer Summary Providers Date of Admission: 12/08/20 21:35 Date of Discharge: 12/12/20 Attending Provider at Admission: Saundra Lambert MD Attending Provider at Transfer: Butch Mcdonald Anticipated Date of Transfer: Anticipated date of transfer: 12/12/20 Receiving Facility & Provider: Receiving Provider: [] Receiving facility: [] Diagnoses at Discharge Discharge Diagnosis (1) Shoulder pain: Status: Acute Reason for Visit Reason for Visit: CHEST PAIN Hospital Course Hospital Course Pleasant 60-year-old gentleman with history of hepatitis C, smoking, GERD, recent admitted in the hospital for treatment of hypoxic respite failure, severe COVID-19 from 11/25 until 12/01 at which time he required high flow oxygen, was treated with remdesivir, Decadron. His condition gradually improved and he was able to return home with 4 L of oxygen at rest, 6 L on exertion. He was asked to follow-up on hepatitis C, as well as incidentally noted chronic lacunar infarct in right frontal horn. Continue optimization of hypertension. Follow-up with PCP. Follow-up on thrombocytopenia with hematology. He returned to the hospital on 12/08 with left upper arm pain. On duplex ultrasound was found to have left axillary and brachial DVT. Due to central discomfort on presentation also assessed by CT which did not show major PE, however, opacification of pulmonary arteries was suboptimal limiting assessment of peripheral branches. On CT incidentally noted 3 low-density foci in left subscapularis up to 2.5 cm. Unclear etiology with possibility of hematomas or abscess considered. He was afebrile, without leukocytosis, no suggestion of sepsis or active infection. He was initiated on anticoagulation with heparin drip, with risks of bleeding discussed with in the setting of thrombocytopenia. Received 2 units of platelet transfusion which he tolerated well. HIT was felt to be unlikely. Lab work not suggestive of DIC. He has been doing well in terms of oxygenation, requiring 2-3 L of supplemental oxygen by nasal cannula. Due to persistence and severity of pain he would additionally assessed first by ultrasound, which did not produce good quality pictures, subsequently with MRI of his left humerus, with finding of moderate volume left shoulder effusion that extends into the subscapular space. Subtle increase in marrow edema of glenoid without visible cortical disruption. Could be reactive marrow edema from adjacent joint effusion. Early osteomyelitis on the differential. Increase signal of subscapularis muscle suggesting active myositis. With also initial blood culture from 12/08, back with gram-positive cocci on the Gram stain he was started on vancomycin, Rocephin. CT-guided IR aspiration of the left shoulder joint with very little aspirate due to thick and complex effusion. Cell counts could not be obtained due to sample clotting off. Gram stain negative for organisms. Culture pending. With findings discussed extensively with him and his , we cannot be sure that there is an not infection in the shoulder despite so far negative Gram stain from the effusion. Orthopedic surgeon due to complexity of the case recommended transfer to higher level facility. He was kindly excepted for further assessment treatment at [facility] in [place]. Physical Exam Const: COMMON NORMALS: no acute distress, patient oriented x3 and alert GENERAL APPEARANCE: cooperative ORIENTATION/CONSCIOUSNESS: Yes awake HENMT: COMMON NORMALS: oropharynx normal Neck/C-Spine: COMMON NORMALS: no JVD Resp: COMMON NORMALS: normal respiratory effort and clear to auscultation bilaterally AUSCULTATION: clear to auscultation bilaterally Cardio: COMMON NORMALS: no JVD, regular rhythm, S1 normal heart sound present, S2 normal heart sound present and No murmurs present (Cardio) RHYTHM: regular rhythm HEART SOUNDS: S1 normal heart sound present and S2 normal heart sound present GI: COMMON NORMALS: Normal to inspection, nondistended, normoactive bowel sounds present, Soft to palpation and non-tender PALPATION: Yes Soft to palpation Extremity: COMMON NORMALS: no joint enlargement and no pedal edema OTHER: No redness or warmth over left shoulder or elbow. Tender around bicep but also around L shouder. Mild swelling. No redness/warmth. Pain with passive ROM of shoulder, but also elbow. Not wrist. No ecchymosis. No active bleeding. Neuro: COMMON NORMALS: patient oriented x3 and moves all extremities SENSORIUM/ORIENTATION: Yes alert Skin: COMMON NORMALS: no rashes or lesions noted GENERAL SKIN EXAM: no rashes or lesions noted TS Data Data Completed and Pending: Completed Studies During Hospitalization Category Date Time Status CT angio chest PE protcl [id number] Stat Cat Scan 12/08/20 19:15 Completed XR chest 1V ariana ble [id number] Stat Exams 12/08/20 19:15 Completed MR humerus LT wo/ w con [id number] Stat MRI 12/10/20 17:04 [place] [id number] Urgent Ultrasound 12/08/20 19:54 Completed US soft tissue/ex tremity [id number] Rout ine Ultrasound 12/10/20 11:29 [place] [id number] Rout ine Ultrasound 12/11/20 11:03 Completed Pending at discharge Category Date Time Status Blood Culture Sta t Lab 12/08/20 21:27 Results Body Fluid Cultur e & GS Routine Lab 12/11/20 15:11 Results Complete Blood Co unt w/Auto AM LABS Lab 12/13/20 04:00 Ordered Complete Blood Co unt w/Auto AM LABS Lab 12/14/20 04:00 Ordered Complete Blood Co unt w/Auto AM LABS Lab 12/15/20 04:00 Ordered Comprehensive Met abolic Panel AM ND BS Lab 12/13/20 04:00 Ordered Comprehensive Met abolic Panel AM ND BS Lab 12/14/20 04:00 Ordered Comprehensive Met abolic Panel AM ND BS Lab 12/15/20 04:00 Ordered Cytology [PTH] Ro utine Pth 12/11/20 15:28 Received Labs from last 24 hours 12/12/20 12/12/20 12/12/20 00:48 00:48 00:48 WBC RBC Hgb Hct MCV MCH MCHC RDW Plt Count MPV Neut % (Auto) Lymph % (Auto) [place] % (Auto) Eos % (Auto) Baso % (Auto) Neut # (Auto) Lymph # (Auto) [place] # (Auto) Eos # (Auto) Baso # (Auto) Nucleated RBC % (a uto) Nucleated RBCs # PT 16.00 H INR 1.24 H APTT 39.2 H Fibrinogen 719 H Fibrin Degrad Prod ucts Pos, >=40 H D-Dimer 10.57 H Sodium 134 L Potassium 3.6 Chloride 101 Carbon Dioxide 23 Anion Gap 13.6 BUN 8 Creatinine 0.6 L GFR Calculation 137.9 H Glucose 126 H Calculated Osmolal ity 278 L Calcium 8.0 L Total Bilirubin 0.7 AST 84 H ALT 82 H Alkaline Phosphata se 187 H Total Protein 6.4 L Albumin 2.0 L Globulin 4.4 Fluid Crystals Synovial Color Synovial Appearanc e Synovial WBC Synovial RBC Synovial Mononucle ar Synov Polynuclear WBCs Synovial Other Anastasia ls Synovial Polynucle ar % Synovial Mononucle ar % Vancomycin Trough 13.6 Path Cons w/Slide 12/12/20 12/11/20 12/11/20 00:48 15:11 15:11 WBC 4.3 RBC 2.88 L Hgb 9.1 L Hct 27.4 L MCV 95.1 H MCH 31.6 MCHC 33.2 RDW 13.0 Plt Count 64 L MPV 10.2 Neut % (Auto) 55.3 Lymph % (Auto) 22.6 [place] % (Auto) 18.6 Eos % (Auto) 3.1 Baso % (Auto) 0.2 Neut # (Auto) 2.35 Lymph # (Auto) 1.0 [place] # (Auto) 0.8 Eos # (Auto) 0.1 Baso # (Auto) 0.0 Nucleated RBC % (a uto) 0 Nucleated RBCs # 0.0 PT INR APTT Fibrinogen Fibrin Degrad Prod ucts D-Dimer Sodium Potassium Chloride Carbon Dioxide Anion Gap BUN Creatinine GFR Calculation Glucose Calculated Osmolal ity Calcium Total Bilirubin AST ALT Alkaline Phosphata se Total Protein Albumin Globulin Fluid Crystals See path consult Synovial Color Red Synovial Appearanc e Bloody Synovial WBC TNP Synovial RBC TNP Synovial Mononucle ar TNP Synov Polynuclear WBCs TNP Synovial Other Anastasia ls TNP Synovial Polynucle ar % TNP Synovial Mononucle ar % TNP Vancomycin Trough Path Cons w/Slide Yes 12/11/20 14:05 WBC RBC Hgb Hct MCV MCH MCHC RDW Plt Count MPV Neut % (Auto) Lymph % (Auto) [place] % (Auto) Eos % (Auto) Baso % (Auto) Neut # (Auto) Lymph # (Auto) [place] # (Auto) Eos # (Auto) Baso # (Auto) Nucleated RBC % (a uto) Nucleated RBCs # PT INR APTT 36.7 Fibrinogen Fibrin Degrad Prod ucts D-Dimer Sodium Potassium Chloride Carbon Dioxide Anion Gap BUN Creatinine GFR Calculation Glucose Calculated Osmolal ity Calcium Total Bilirubin AST ALT Alkaline Phosphata se Total Protein Albumin Globulin Fluid Crystals Synovial Color Synovial Appearanc e Synovial WBC Synovial RBC Synovial Mononucle ar Synov Polynuclear WBCs Synovial Other Anastasia ls Synovial Polynucle ar % Synovial Mononucle ar % Vancomycin Trough Path Cons w/Slide Vitals: Last Vital Signs Temp 98.1 F 12/12/20 12:00 Pulse 79 12/12/20 12:00 Resp 24 H 12/12/20 12:00 BP 167/83 12/12/20 12:00 Pulse Ox 95 12/12/20 12:00 TS Medications Medications Home Medications albuterol sulfate [Ventolin HFA] 2 puff INHALATION Q4H.RESPIRATORY PRN #8.5 g 12/01/20 [Rx Confirmed 12/09/20] ascorbic acid (vitamin C) [Vitamin C] 500 mg PO BID 30 Days #60 tab 12/01/20 [Rx Confirmed 12/09/20] benzonatate 100 mg PO TID PRN 15 Days #45 cap 12/01/20 [Rx Confirmed 12/09/20] docusate sodium 100 mg PO BID 30 Days #60 cap 12/01/20 [Rx Confirmed 12/09/20] pantoprazole 40 mg PO DAILY 30 Days #30 tab 12/01/20 [Rx Confirmed 12/09/20] polyethylene glycol 3350 17 g PO DAILY 30 Days #30 ea 12/01/20 [Rx Confirmed 12/09/20] zinc gluconate 50 mg PO DAILY 30 Days #30 tab 12/01/20 [Rx Confirmed 12/09/20] aspirin [Aspir-81] 81 mg PO QAM 12/09/20 [History Confirmed 12/09/20] atorvastatin 40 mg PO QAM 12/09/20 [History Confirmed 12/09/20] cholecalciferol (vitamin D3) [Vitamin D3] 25 mcg PO QAM 12/09/20 [History Confirmed 12/09/20] fluticasone propion-salmeterol [Advair Diskus] 2 inh INHALATION BID 12/09/20 [History Confirmed 12/09/20] ibuprofen 400 mg PO Q4H PRN 12/09/20 [History Confirmed 12/09/20] omeprazole [Prilosec] 20 mg PO DAILY 12/09/20 [History Confirmed 12/09/20] tiotropium bromide [Spiriva with HandiHaler] 1 cap INHALATION DAILY 12/09/20 [History Confirmed 12/09/20] Active Medications Acetaminophen (Acetaminophen 325 Mg Tablet) 650 mg PO Q6H PRN PRN Reason: Mild/Mod Pain Or Temp >/= 101 Last Admin: 12/11/20 22:50 Dose: 650 mg Documented by: Hydrocodone Bitart/Acetaminophen (Hydrocodone-Acetaminophen 5-325 Mg Tablet) 1 tab PO Q4H PRN PRN Reason: MODERATE PAIN Last Admin: 12/12/20 10:22 Dose: 1 tab Documented by: Albuterol/Ipratropium (Ipratropium-Albuterol 3 Ml Neb) 3 ml INHALATION Q6H.RESPIRATORY LIBIA Last Admin: 12/12/20 09:16 Dose: 3 ml Documented by: Aspirin (Aspirin 81 Mg Ec Tablet) 81 mg PO DAILY LIBIA Last Admin: 12/12/20 08:19 Dose: 81 mg Documented by: Atorvastatin Calcium (Atorvastatin 40 Mg Tablet) 40 mg PO Q24H LIBIA Last Admin: 12/11/20 22:50 Dose: 40 mg Documented by: Benzonatate (Benzonatate 100 Mg Capsule) 100 mg PO TID PRN PRN Reason: Cough Budesonide (Budesonide 0.5 Mg/2 Ml Neb) 0.5 mg INHALATION BID.RESPIRATORY LIBIA Last Admin: 12/12/20 09:15 Dose: 0.5 mg Documented by: Heparin Sodium (Beef Lung) (Heparin 5,000 Unit/Ml Inj 1 Ml) 0 unit IV PRN PRN; Protocol PRN Reason: Heparin weight-base protocol Last Admin: 12/08/20 22:05 Dose: 4,200 unit Documented by: Heparin Sodium/Sodium Chloride (Heparin Drip) 25,000 unit in 500 mls @ 0 mls/hr IV .Q0M [facility]; Protocol Last Titration: 12/11/20 12:00 Dose: 0 unit/kg/hr, 0 mls/hr Documented by: Vancomycin HCl 1,000 mg/ (Sodium Chloride) 250 mls @ 250 mls/hr IV Q8H [facility]; Protocol Last Infusion: 12/12/20 11:22 Dose: Infused Documented by: Ceftriaxone Sodium 1,000 mg/ (Sodium Chloride) 50 mls @ 100 mls/hr IV Q24H [facility]; Protocol Last Infusion: 12/12/20 02:02 Dose: Infused Documented by: Lidocaine (Lidocaine 5% Patch) 1 patch TOPICAL [id number] [facility] Last Admin: 12/12/20 08:19 Dose: Not Given Documented by: Lidocaine HCl (Lidocaine 2% Jelly 5 Ml) 1 applic TOPICAL PRN PRN PRN Reason: blood draw Last Admin: 12/09/20 17:11 Dose: 1 applic Documented by: Morphine Sulfate (Morphine 4 Mg/Ml Sdv 1 Ml) 4 mg IVP Q4H PRN PRN Reason: SEVERE PAIN Last Admin: 12/11/20 23:03 Dose: 4 mg Documented by: Naloxone HCl (Naloxone 0.4 Mg/Ml Sdv) 0.1 mg IVP Q2M PRN PRN Reason: OPIATERV Nicotine (Nicotine 14 Mg Patch) 1 patch TRANSDERMA DAILY [facility] Last Admin: 12/12/20 08:19 Dose: Not Given Documented by: Ondansetron HCl (Ondansetron 2 Mg/Ml Sdv 2 Ml) 4 mg IVP Q8H PRN PRN Reason: vomiting, or N/V if npo Pantoprazole Sodium (Pantoprazole Dr 40 Mg Tablet) 40 mg PO DAILY [facility] Last Admin: 12/12/20 08:19 Dose: 40 mg Documented by: Polyethylene Glycol (Polyethylene Glycol 3350 Pkt 17 Gm) 17 gm PO DAILY PRN PRN Reason: constipation Discharge Plan Discharge Patient Disposition: Home Condition: Stable Prescriptions: No Action albuterol sulfate [Ventolin HFA] 90 mcg/actuation Hfa Aerosol Inhaler 2 puff inhalation Q4H.RESPIRATORY PRN (Reason: Shortness Of Breath) Qty: 8.5 RF: 0 ascorbic acid (vitamin C) [Vitamin C] 500 mg Tablet 500 mg PO BID 30 Days Qty: 60 RF: 0 benzonatate 100 mg Capsule 100 mg PO TID PRN (Reason: Cough) 15 Days Qty: 45 RF: 0 docusate sodium 100 mg Capsule 100 mg PO BID 30 Days Qty: 60 RF: 0 polyethylene glycol 3350 17 gram Powder In Packet 17 g PO DAILY 30 Days Qty: 30 RF: 0 pantoprazole 40 mg Tablet,Delayed Release (Dr/Ec) 40 mg PO DAILY 30 Days Qty: 30 RF: 0 zinc gluconate 50 mg Tablet 50 mg PO DAILY 30 Days Qty: 30 RF: 0 atorvastatin 40 mg tablet 40 mg PO QAM RF: 0 Aspir-81 81 mg Tablet,Delayed Release (Dr/Ec) 81 mg PO QAM RF: 0 ibuprofen 200 mg Tablet 400 mg PO Q4H PRN (Reason: fever/pain) RF: 0 Prilosec 20 mg Capsule,Delayed Release(Dr/Ec) 20 mg PO DAILY RF: 0 Vitamin D3 25 mcg (1,000 unit) Capsule 25 mcg PO QAM RF: 0 Spiriva with HandiHaler 18 mcg Capsule, W/Inhalation Device 1 cap INHALATION DAILY RF: 0 Advair Diskus 250-50 mcg/dose blister with device 2 inh INHALATION BID RF: 0 Patient Instructions: Opioid Safety Transfer Attestations Time Spent in Transfer Care*: greater than 30 min Quality Metrics Clinical Quality Measures: During this hospital stay, did patient experience: None Coding Level of Care Code Acute Recruiting Internship for Chg Fwd Diagnoses Shoulder pain M25.519
[2020-12-12] MEDS: lidocaine 5% Patch 1 PATCH TOPICAL (20:27)
[2020-12-12] MEDS: morphine 4 mg/mL SDV 1 mL IVP (20:31)
[2020-12-12] MEDS: atorvastatin 40 mg Tablet PO (23:37)
[2020-12-13] VITALS (7 sets, daily range): BP systolic 163–188; BP diastolic 78–94; PULSE 70–85; RESP 16–24; TEMP 36.4–38.2; O2SAT 94–96
[2020-12-13] MEDS: cefTRIAXone 1,000 MG in sodium chloride 0.9% (plus) 50 ML 100 MG IV (00:36)
[2020-12-13] MEDS: vancomycin 1,000 MG in sodium chloride 0.9% 250 ML 250 MG IV ×3 (01:01→17:40)
[2020-12-13 03:32] LABS: Basophils % 0.5 %; Eosinophils # 0.2 10^3/uL (0.0-0.8); Eosinophils % 4.5 %; Hematocrit 27.9 % (42.0-52.0); Lymphocytes # 1.2 10^3/uL (0.8-4.8); Lymphocytes % 27.1 %; Mean Corpuscular HGB Conc 32.3 g/dL (30.0-36.0); Mean Corpuscular Hemoglobin 31.5 pg (28.0-34.0); Mean Corpuscular Volume 97.6 fl (80-94); Mean Platelet Volume 11.1 fL (7.4-10.4); Monocytes # 0.6 10^3/uL (0.2-0.9); Monocytes % 13.9 %; Neutrophils # 2.27 10^3/uL (1.8-7.7); Neutrophils % 53.5 %; Nucleated Red Blood Cells % 0 %; Platelet Count 53 10^3/cmm (130-400); Red Blood Count 2.86 10^6/uL (4.1-5.3); Red Cell Distribution Width 12.7 % (12.1-15.1); White Blood Count 4.2 10^3/uL (4.0-10.0)
[2020-12-13 04:05] LABS: Alanine Aminotransferase 74 U/L (0-41); Albumin Level 1.7 g/dL (3.5-5.2); Alkaline Phosphatase 167 IU/L (40-130); Aspartate Amino Transferase 69 U/L (0-40); Blood Urea Nitrogen 8 mg/dL (6-20); Carbon Dioxide 21 mmol/L (22-29); Chloride 102 mmol/L (98-107); Globulin 4.5 g/dL (1.3-4.6); Glomerular Filtration Rate 170.2 mL/min (90-130); Glucose 106 mg/dL (65-115); Osmolality Calculated 277 mOsm/kg (285-295); Sodium 134 mmol/L (136-145); Total Bilirubin 0.6 mg/dL (0.15-1.2); Total Protein 6.2 g/dL (6.6-8.7)
[2020-12-13 04:06] LABS: Anion Gap 14.9 (5-19); Potassium 3.9 mmol/L (3.5-5.1)
[2020-12-13 04:22] LABS: Slide Review Slide Review Perform
[2020-12-13] MEDS: HYDROcodone-acetaminophen 5-325 mg Tablet 1 TAB PO ×3 (06:28→16:31)
[2020-12-13] MEDS: aspirin 81 mg EC Tablet PO (08:37)
[2020-12-13] MEDS: pantoprazole DR 40 mg Tablet PO (08:37)
[2020-12-13] MEDS: amlodipine 5 mg Tablet PO (10:16)
--- NOTE | 2020-12-13 12:20 | PM.PN ---
Subjective Subjective: Interval history: He is feeling about the same. New new symptoms. No new rash. Vitals/I&O/Wt Last Vital Signs Temp 97.9 F 12/13/20 11:42 Pulse 70 12/13/20 11:42 Resp 16 12/13/20 11:42 BP 163/78 12/13/20 11:42 Pulse Ox 96 12/13/20 11:42 12/12/20 12/13/20 12/13/20 22:59 06:59 14:59 Intake Total 490 / 1100 300 / 1400 240 / 240 Output Total 850 / 1150 1050 / 2200 Balance -360 / -50 -750 / -800 240 / 240 Physical Exam Const: COMMON NORMALS: no acute distress, patient oriented x3 and alert GENERAL APPEARANCE: cooperative ORIENTATION/CONSCIOUSNESS: Yes awake HENMT: COMMON NORMALS: oropharynx normal Neck/C-Spine: COMMON NORMALS: no JVD Resp: COMMON NORMALS: normal respiratory effort and clear to auscultation bilaterally AUSCULTATION: clear to auscultation bilaterally Cardio: COMMON NORMALS: no JVD, regular rhythm, S1 normal heart sound present, S2 normal heart sound present and No murmurs present (Cardio) RHYTHM: regular rhythm HEART SOUNDS: S1 normal heart sound present and S2 normal heart sound present GI: COMMON NORMALS: Normal to inspection, nondistended, normoactive bowel sounds present, Soft to palpation and non-tender PALPATION: Yes Soft to palpation Extremity: COMMON NORMALS: no joint enlargement and no pedal edema OTHER: No redness or warmth over left shoulder or elbow. Tender around bicep but also around L shouder. Mild swelling. No redness/warmth. Pain. Neuro: COMMON NORMALS: patient oriented x3 and moves all extremities SENSORIUM/ORIENTATION: Yes alert Skin: COMMON NORMALS: no rashes or lesions noted GENERAL SKIN EXAM: no rashes or lesions noted Data : 12/13/20 02:32 12/13/20 02:32 Micro: Microbiology 12/11/20 15:11 Gram Stain - Final Synovial Fluid Body Fluid Culture - Preliminary Methicillin Resis Staph Aureus 12/08/20 21:21 Blood Culture - Preliminary Blood Methicillin Resis Staph Aureus A&P Assessment and plan (1) Shoulder pain: Culture from shoulder and blood now growing MRSA. Discussed w ortho. He is accepted to [facility], pending bed opening. Called also [place] to see if anything is open, but no beds in [facility] or [facility] or [place]. [facility]. Reaching out also to [place]. Continue vancomycin. Stop Rocephin. Overnight started on antibiotics secondary to gram-positive cocci in 2/2 bottles on Gram stain in the same side, as well as MRI findings. Noted to have joint effusion left shoulder extending into subscapular space. Subtle marrow edema. Lidocaine patch, for severe pain morphine. Status: Acute (2) Arm DVT (deep venous thromboembolism), acute: Heparin drip. Status: Acute Qualifiers: Laterality: left Qualified Code(s): I82.622 - Acute embolism and thrombosis of deep veins of left upper extremity (3) Thrombocytopenia: Discussed w him platelet level worse today. Recheck PLT. Transfuse if they are decreasing further. Status: Acute (4) MRSA bacteremia: With septic arathritis. Possible septic thrombophlebitis. Pending definitive treatment of the shoulder. Obtain TTE Status: Acute Additional A&P Information Recent COVID-19 infection: He otherwise in terms of oxygenation is doing well on 3 L nasal cannula support. 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 Left side slightly more diffuse, large area over the left lower chest/flank. States he also had a sticker there previously. Added adhesive's possible allergy. HTN: add amlodipine Attestations Medical Necessity Statement*: Continue assessment and management of L shoulder MRSA septic arthritis, bacteremia. Coding Level of Care Code Acute Parts Counter Representative for Drew Garcia Diagnoses Shoulder pain M25.519 Arm DVT (deep venous thromboembolism), acute I82.622 Laterality: left Thrombocytopenia D69.6 MRSA bacteremia R78.81; B95.62
--- NOTE | 2020-12-13 12:29 | USCV_ITS ---
Brian Ward Age: 60 Gender: M : 1960 Exam Date: 12/13/2020 15:44 Ordering Phys: Butch Mcdonald MD Technologist: Alexandria Patel Exam Location: [facility] [place] Indication: MRSA, BACTERMIA BP: 163 / 78 HR: 75 Rhythm: Sinus Technical Quality: Technically difficult study MEASUREMENTS (Male / Female) Normal Values 2D ECHO LV Diastolic Diameter PLAX 4.4 cm 4.2 - 5.9 / 3.9 - 5.3 cm LV Systolic Diameter PLAX 3.6 cm IVS Diastolic Thickness 1.5 cm 0.6 - 1.0 / 0.6 - 0.9 cm IVS Systolic Thickness 2.3 cm LVPW Diastolic Thickness 2.0 cm 0.6 - 1.0 / 0.6 - 0.9 cm LVPW Systolic Thickness 2.1 cm LV Ejection Fraction 2D Teich 36.6 % LV Ejection Fraction MOD 2C 59.5 % LV Ejection Fraction 2C AL 58.5 % LA Diameter 3.0 cm LA Width 2.6 cm LA Height 3.8 cm RA Width 2.8 cm RA Height 3.7 cm M-MODE Aortic Annulus Diameter 3.5 cm LA Ao Ratio MM 0.9 DOPPLER AV Peak Velocity 109.0 cm/s LVOT Peak Velocity 90.0 cm/s MV Peak Velocity 94.0 cm/s MV Area PHT 4.8 cm squared Mitral E to A Ratio 1.0 MV E' Velocity 45.5 cm/s Mitral E to MV E' Ratio 9.2 Mitral E to LV E' Lateral Ratio 8.6 Mitral E to LV E' Septal Ratio 9.8 Right Atrial Pressure 3.0 mmHg FINDINGS Left Ventricle Normal left ventricular cavity size. Normal left ventricular systolic function. No regional wall motion abnormalities. Left ventricular ejection fraction is estimated at 55 %. Grade I/IV diastolic dysfunction (abnormal relaxation filling pattern), normal to mildly elevated filling pressures. Right Ventricle The right ventricle is normal in size and function. RVSP could not be calculated due to incomplete tricuspid regurgitation velocity profile. Right Atrium The right atrium is normal in size. Left Atrium The left atrium is normal in size. Mitral Valve Structurally normal mitral valve without significant stenosis or prolapse. There is no mitral regurgitation. Aortic Valve Structurally normal aortic valve without significant sclerosis or stenosis. There is no aortic regurgitation. Tricuspid Valve Structurally normal tricuspid valve without significant stenosis or regurgitation. Pulmonic Valve Structurally normal pulmonic valve without significant stenosis. There is no pulmonic regurgitation. Pericardium Normal pericardium without effusion. Aorta Normal ascending aorta dimension. CONCLUSIONS 1-Normal left ventricular cavity size. Normal left ventricular systolic function. No regional wall motion abnormalities. Left ventricular ejection fraction is estimated at 55 %. Grade I/IV diastolic dysfunction (abnormal relaxation filling pattern), normal to mildly elevated filling pressures. 2-There is no pericardial effusion. 3-No significant valve abnormalities. 4-The right ventricle is normal in size and function. RVSP could not be calculated due to incomplete tricuspid regurgitation velocity profile. 5-Right atrial pressure is around 5 mm of mercury. 6-There are no prior echocardiogram studies to compare. Gerry Frey MD (Electronically Signed) Final Date: 13 December 2020 16:41 S
--- NOTE | 2020-12-13 14:38 | PC.OT ---
Occupational therapy treatment held due to patient's status with low platelets and DVT in extremity.
--- NOTE | 2020-12-13 15:35 | PC.CHAP ---
Pastoral Care Encounter/Spiritual Assessment Type of Contact [] Declined it operations specialist visit [] Patient/Family/Request visit [] Outpatient visit [xx] Follow-up visit [] Physician referral [] Code/Alert [] Routine visit [] Staff referral [] Actively dying [] Patient sleeping [] Family support [] [] Out of room [] Palliative care [] [] Receiving care in room [] Pre-surgical visit [] Trauma [xx] Long length of stay [] ICU visit [xx] Other: ISOLATION Relational/Emotional Strength [] Patient feels connected with others/family/visitors/staff [] Distress [] Loneliness/isolation [] Abandonment Spirituality of Patient [] Person of Jazmine [] Attends Jain of their Jazmine [] Believes in Prayer [] Reads Bible or Restoration materials [] There are Spiritual issues to be addressed Sports Medicine Coordinator Interventions [] Prayer [] Active listening [] Non-anxious presence [] Spiritual/emotional support [] Crisis/trauma care [] Spiritual counseling [] Bereavement support [] Provided bereavement packet [] Provided Bible/devotional materials [] Provided toy/stuffed animal, coloring book to patient or family member [] Provided Communion [] Anointing/[place] [] Salvation [] Completed spiritual assessment [] Other: Impact on Illness or Injury [] Angry [] Fearful [] Anxious [] Often cries [] Exhaustion [] Unable to work [] Unable to attend sabianism [] Unable to walk/stand [] Unable to read [] Unable to drive [] Unable to eat/drink [] Unable to sleep [] Unable to be with family [] Patient intubated [] Other: Summary Time spent with patient
[2020-12-13] MEDS: lidocaine 5% Patch 1 PATCH TOPICAL (20:38)
[2020-12-13] MEDS: morphine 4 mg/mL SDV 1 mL IVP (21:52)
[2020-12-13] MEDS: atorvastatin 40 mg Tablet PO (22:53)
[2020-12-14] VITALS (7 sets, daily range): BP systolic 160–172; BP diastolic 82–96; PULSE 74–88; RESP 16–18; TEMP 36.4–38.4; O2SAT 91–97
[2020-12-14] MEDS: acetaminophen 325 mg Tablet 650 MG PO (00:05)
[2020-12-14] MEDS: vancomycin 1,000 MG in sodium chloride 0.9% 250 ML 250 MG IV ×3 (02:04→17:50)
[2020-12-14] MEDS: morphine 4 mg/mL SDV 1 mL IVP (02:11)
[2020-12-14 07:59] LABS: Basophils % 0.3 %; Eosinophils # 0.3 10^3/uL (0.0-0.8); Eosinophils % 7.2 %; Hemoglobin 9.6 g/dL (11.7-16.6); Lymphocytes # 1.1 10^3/uL (0.8-4.8); Mean Corpuscular Hemoglobin 31.1 pg (28.0-34.0); Mean Corpuscular Volume 97.1 fl (80-94); Mean Platelet Volume 11.3 fL (7.4-10.4); Monocytes # 0.7 10^3/uL (0.2-0.9); Monocytes % 17.7 %; Neutrophils # 1.85 10^3/uL (1.8-7.7); Neutrophils % 47.5 %; Nucleated Red Blood Cells % 0 %; Platelet Count 52 10^3/cmm (130-400); Red Blood Count 3.09 10^6/uL (4.1-5.3); Red Cell Distribution Width 12.7 % (12.1-15.1); White Blood Count 3.9 10^3/uL (4.0-10.0)
[2020-12-14 08:15] LABS: Alanine Aminotransferase 60 U/L (0-41); Alkaline Phosphatase 144 IU/L (40-130); Anion Gap 14.1 (5-19); Aspartate Amino Transferase 49 U/L (0-40); Blood Urea Nitrogen 9 mg/dL (6-20); Carbon Dioxide 25 mmol/L (22-29); Chloride 99 mmol/L (98-107); Globulin 4.9 g/dL (1.3-4.6); Glomerular Filtration Rate 170.2 mL/min (90-130); Glucose 85 mg/dL (65-115); Osmolality Calculated 276 mOsm/kg (285-295); Potassium 4.1 mmol/L (3.5-5.1); Sodium 134 mmol/L (136-145); Total Bilirubin 0.5 mg/dL (0.15-1.2); Total Protein 6.9 g/dL (6.6-8.7)
[2020-12-14] MEDS: aspirin 81 mg EC Tablet PO (08:36)
[2020-12-14] MEDS: pantoprazole DR 40 mg Tablet PO (08:36)
[2020-12-14] MEDS: amlodipine 5 mg Tablet PO (08:36)
[2020-12-14] MEDS: HYDROcodone-acetaminophen 5-325 mg Tablet 1 TAB PO ×3 (08:45→19:56)
--- NOTE | 2020-12-14 14:47 | PC.NURSE ---
Called [place] transfer line to check on bed status. They said to call back between [phone] to check again.
--- NOTE | 2020-12-14 18:29 | P.TS_ITS ---
Transfer Summary Providers Date of Admission: 12/08/20 21:35 Date of Discharge: 12/14/20 Attending Provider at Admission: Saundra Lambert MD Attending Provider at Transfer: Butch Mcdonald Anticipated Date of Transfer: Anticipated date of transfer: 12/14/20 Receiving Facility & Provider: Receiving Provider: [] Receiving facility: [] Diagnoses at Discharge Discharge Diagnosis (1) Shoulder pain: Status: Acute (2) Arm DVT (deep venous thromboembolism), acute: Status: Acute Qualifiers: Laterality: left Qualified Code(s): I82.622 - Acute embolism and thrombosis of deep veins of left upper extremity (3) Thrombocytopenia: Status: Acute (4) MRSA bacteremia: Status: Acute Reason for Visit Reason for Visit: CHEST PAIN Hospital Course Hospital Course Pleasant 60-year-old gentleman with history of hepatitis C, smoking, GERD, recent admitted in the hospital for treatment of hypoxic respite failure, severe COVID-19 from 11/25 until 12/01 at which time he required high flow oxygen, was treated with remdesivir, Decadron. His condition gradually improved and he was able to return home with 4 L of oxygen at rest, 6 L on exertion. He was asked to follow-up on hepatitis C, as well as incidentally noted chronic lacunar infarct in right frontal horn. Continue optimization of hypertension. Follow- up with PCP. Follow-up on thrombocytopenia with hematology. He returned to the hospital on 12/08 with left upper arm pain. On duplex ultrasound was found to have left axillary and brachial DVT. Due to central discomfort on presentation also assessed by CT which did not show major PE, however, opacification of pulmonary arteries was suboptimal limiting assessment of peripheral branches. On CT incidentally noted 3 low-density foci in left subscapularis up to 2.5 cm. Unclear etiology with possibility of hematomas or abscess considered. He was afebrile, without leukocytosis, no suggestion of sepsis or active infection. He was initiated on anticoagulation with heparin drip, with risks of bleeding discussed with in the setting of thrombocytopenia. Platelets remain around 50,000. Received 2 units of platelet transfusion which he tolerated well. HIT was felt to be unlikely. Lab work not suggestive of DIC. He has been doing well in terms of oxygenation, requiring 2-3 L of supplemental oxygen by nasal cannula. Due to persistence and severity of pain he would additionally assessed first by ultrasound, which did not produce good quality pictures, subsequently with MRI of his left humerus, with finding of moderate volume left shoulder effusion that extends into the subscapular space. Subtle increase in marrow edema of glenoid without visible cortical disruption. Could be reactive marrow edema from adjacent joint effusion. Early osteomyelitis on the differential. Increase signal of subscapularis muscle suggesting active myositis. With also initial blood culture from 12/08, back with gram-positive cocci on the Gram stain he was started on vancomycin, Rocephin. CT-guided IR aspiration of the left shoulder joint with very little aspirate due to thick and complex effusion. Cell counts could not be obtained due to sample clotting off. Blood culture eventually identified as MRSA. Synovial fluid initially with negative Gram stain, subsequently also gram-positive and growing MRSA. Septic thrombophlebitis may need to be considered as well given the findings. With this possibility, as well as with thrombocytopenia, anticoagulation, hepatitis C, recent COVID-19, as per orthopedic surgeon recommendation to transfer to higher level care facility due to complexity of the case and anatomy with extension to subscapularis. As per recommendation transfer was sought. No beds were available in [place] as per initial family request. He has been accepted to [facility] on 12/12, although no bed has been available there yet. Multiple additional facilities have been contacted on a daily basis, including [facility] and [facility], with no beds available in [place] or [place]. [facility] was contacted as well, with no beds available at any of the 6 [facility] facilities. [facility] had no beds. [facility] had no beds available. We have also reached out to [facility] in [place] where he could not be accepted. [facility] had 73 people on waiting list. We also reached out to [place] in [facility] who had no beds. [facility] in [place] had no beds, reporting no beds available in the [place] area. It appears that a bed may be available at [facility] in [place] where he is currently accepted for the needed treatment, awaiting callback from bed control. TTE shows normal ejection fraction, grade 1 diastolic dysfunction. No pericardial effusion. No obvious vegetations or p erivalvular abscess. Blood culture has been repeated. He currently continues on vancomycin pending definitive treatment. Physical Exam Const: COMMON NORMALS: no acute distress, patient oriented x3 and alert GENERAL APPEARANCE: cooperative ORIENTATION/CONSCIOUSNESS: Yes awake HENMT: COMMON NORMALS: oropharynx normal Neck/C-Spine: COMMON NORMALS: no JVD Resp: COMMON NORMALS: normal respiratory effort and clear to auscultation bilaterally AUSCULTATION: clear to auscultation bilaterally Cardio: COMMON NORMALS: no JVD, regular rhythm, S1 normal heart sound present, S2 normal heart sound present and No murmurs present (Cardio) RHYTHM: regular rhythm HEART SOUNDS: S1 normal heart sound present and S2 normal heart sound present GI: COMMON NORMALS: Normal to inspection, nondistended, normoactive bowel sounds present, Soft to palpation and non-tender PALPATION: Yes Soft to palpation Extremity: COMMON NORMALS: no joint enlargement and no pedal edema OTHER: No redness or warmth over left shoulder or elbow. Tender around bicep but also around L shouder. Mild swelling. No redness/warmth. Pain. Neuro: COMMON NORMALS: patient oriented x3 and moves all extremities SENSORIUM/ORIENTATION: Yes alert Skin: COMMON NORMALS: no rashes or lesions noted GENERAL SKIN EXAM: no rashes or lesions noted TS Data Data Completed and Pending: Completed Studies During Hospitalization Category Date Time Status CT angio chest PE protcl [id number] Stat Cat Scan 12/08/20 19:15 Completed XR chest 1V ariana ble [id number] Stat Exams 12/08/20 19:15 Completed MR humerus LT wo/ w con [id number] Stat MRI 12/10/20 17:04 [place] [id number] Urgent Ultrasound 12/08/20 19:54 Completed CV. echo complete * [id number] Routine Ultrasound 12/13/20 12:29 Completed US soft tissue/ex tremity [id number] Rout ine Ultrasound 12/10/20 11:29 [place] tee [id number] Rout ine Ultrasound 12/11/20 11:03 Completed Pending at discharge Category Date Time Status Blood Culture Sta t Lab 12/08/20 21:27 Results Blood Culture Sta t Lab 12/14/20 16:39 Results Complete Blood Co unt w/Auto AM LABS Lab 12/15/20 04:00 Ordered Comprehensive Met abolic Panel AM LA BS Lab 12/15/20 04:00 Ordered Cytology [PTH] Ro utine Pth 12/11/20 15:28 Received Labs from last 24 hours 12/14/20 12/14/20 12/14/20 16:39 06:55 06:55 WBC 3.9 L RBC 3.09 L Hgb 9.6 L Hct 30.0 L MCV 97.1 H MCH 31.1 MCHC 32.0 RDW 12.7 Plt Count 52 L MPV 11.3 H Neut % (Auto) 47.5 Lymph % (Auto) 27.0 Grady % (Auto) 17.7 Eos % (Auto) 7.2 Baso % (Auto) 0.3 Neut # (Auto) 1.85 Lymph # (Auto) 1.1 Grady # (Auto) 0.7 Eos # (Auto) 0.3 Baso # (Auto) 0.0 Nucleated RBC % (a uto) 0 Nucleated RBCs # 0.0 Sodium 134 L Potassium 4.1 Chloride 99 Carbon Dioxide 25 Anion Gap 14.1 BUN 9 Creatinine 0.5 L GFR Calculation 170.2 H Glucose 85 Calculated Osmolal ity 276 L Calcium 8.0 L Total Bilirubin 0.5 AST 49 H ALT 60 H Alkaline Phosphata se 144 H Total Protein 6.9 Albumin 2.0 L Globulin 4.9 H Vancomycin Trough 16.0 H Vitals: Last Vital Signs Temp 98.2 F 12/14/20 15:41 Pulse 78 12/14/20 15:41 Resp 16 12/14/20 15:41 BP 160/85 12/14/20 15:41 Pulse Ox 95 12/14/20 15:41 TS Medications Medications Home Medications albuterol sulfate [Ventolin HFA] 2 puff INHALATION Q4H.RESPIRATORY PRN #8.5 g 12/01/20 [Rx Confirmed 12/09/20] ascorbic acid (vitamin C) [Vitamin C] 500 mg PO BID 30 Days #60 tab 12/01/20 [Rx Confirmed 12/09/20] benzonatate 100 mg PO TID PRN 15 Days #45 cap 12/01/20 [Rx Confirmed 12/09/20] docusate sodium 100 mg PO BID 30 Days #60 cap 12/01/20 [Rx Confirmed 12/09/20] pantoprazole 40 mg PO DAILY 30 Days #30 tab 12/01/20 [Rx Confirmed 12/09/20] polyethylene glycol 3350 17 g PO DAILY 30 Days #30 ea 12/01/20 [Rx Confirmed 12/09/20] zinc gluconate 50 mg PO DAILY 30 Days #30 tab 12/01/20 [Rx Confirmed 12/09/20] aspirin [Aspir-81] 81 mg PO QAM 12/09/20 [History Confirmed 12/09/20] atorvastatin 40 mg PO QAM 12/09/20 [History Confirmed 12/09/20] cholecalciferol (vitamin D3) [Vitamin D3] 25 mcg PO QAM 12/09/20 [History Confirmed 12/09/20] fluticasone propion-salmeterol [Advair Diskus] 2 inh INHALATION BID 12/09/20 [History Confirmed 12/09/20] ibuprofen 400 mg PO Q4H PRN 12/09/20 [History Confirmed 12/09/20] omeprazole [Prilosec] 20 mg PO DAILY 12/09/20 [History Confirmed 12/09/20] tiotropium bromide [Spiriva with HandiHaler] 1 cap INHALATION DAILY 12/09/20 [History Confirmed 12/09/20] Active Medications Acetaminophen (Acetaminophen 325 Mg Tablet) 650 mg PO Q6H PRN PRN Reason: Mild/Mod Pain Or Temp >/= 101 Last Admin: 12/14/20 00:05 Dose: 650 mg Documented by: Hydrocodone Bitart/Acetaminophen (Hydrocodone-Acetaminophen 5-325 Mg Tablet) 1 tab PO Q4H PRN PRN Reason: MODERATE PAIN Last Admin: 12/14/20 14:21 Dose: 1 tab Documented by: Albuterol/Ipratropium (Ipratropium-Albuterol 3 Ml Neb) 3 ml INHALATION Q6H.RESPIRATORY LIBIA Last Admin: 12/12/20 15:07 Dose: 3 ml Documented by: Amlodipine Besylate (Amlodipine 5 Mg Tablet) 5 mg PO DAILY LIBIA Last Admin: 12/14/20 08:36 Dose: 5 mg Documented by: Aspirin (Aspirin 81 Mg Ec Tablet) 81 mg PO DAILY LIBIA Last Admin: 12/14/20 08:36 Dose: 81 mg Documented by: Atorvastatin Calcium (Atorvastatin 40 Mg Tablet) 40 mg PO Q24H LIBIA Last Admin: 12/13/20 22:53 Dose: 40 mg Documented by: Benzonatate (Benzonatate 100 Mg Capsule) 100 mg PO TID PRN PRN Reason: Cough Budesonide (Budesonide 0.5 Mg/2 Ml Neb) 0.5 mg INHALATION BID.RESPIRATORY [facility] Last Admin: 12/12/20 09:15 Dose: 0.5 mg Documented by: Heparin Sodium (Beef Lung) (Heparin 5,000 Unit/Ml Inj 1 Ml) 0 unit IV PRN PRN; Protocol PRN Reason: Heparin weight-base protocol Last Admin: 12/08/20 22:05 Dose: 4,200 unit Documented by: Heparin Sodium/Sodium Chloride (Heparin Drip) 25,000 unit in 500 mls @ 0 mls/hr IV .Q0M [facility]; Protocol Last Titration: 12/11/20 12:00 Dose: 0 unit/kg/hr, 0 mls/hr Documented by: Vancomycin HCl 1,000 mg/ (Sodium Chloride) 250 mls @ 250 mls/hr IV Q8H [facility]; Protocol Last Admin: 12/14/20 17:50 Dose: 250 mls/hr Documented by: Lidocaine (Lidocaine 5% Patch) 1 patch TOPICAL [id number] [facility] Last Admin: 12/14/20 08:37 Dose: Not Given Documented by: Lidocaine HCl (Lidocaine 2% Jelly 5 Ml) 1 applic TOPICAL PRN PRN PRN Reason: blood draw Last Admin: 12/09/20 17:11 Dose: 1 applic Documented by: Morphine Sulfate (Morphine 4 Mg/Ml Sdv 1 Ml) 4 mg IVP Q4H PRN PRN Reason: SEVERE PAIN Last Admin: 12/14/20 02:11 Dose: 4 mg Documented by: Naloxone HCl (Naloxone 0.4 Mg/Ml Sdv) 0.1 mg IVP Q2M PRN PRN Reason: OPIATERV Nicotine (Nicotine 14 Mg Patch) 1 patch TRANSDERMA DAILY [facility] Last Admin: 12/14/20 08:46 Dose: Not Given Documented by: Ondansetron HCl (Ondansetron 2 Mg/Ml Sdv 2 Ml) 4 mg IVP Q8H PRN PRN Reason: vomiting, or N/V if npo Pantoprazole Sodium (Pantoprazole Dr 40 Mg Tablet) 40 mg PO DAILY [facility] Last Admin: 12/14/20 08:36 Dose: 40 mg Documented by: Polyethylene Glycol (Polyethylene Glycol 3350 Pkt 17 Gm) 17 gm PO DAILY PRN PRN Reason: constipation Discharge Plan Discharge Patient Disposition: Xfer Short-Term Hosp Condition: Stable Prescriptions: No Action albuterol sulfate [Ventolin HFA] 90 mcg/actuation Hfa Aerosol Inhaler 2 puff inhalation Q4H.RESPIRATORY PRN (Reason: Shortness Of Breath) Qty: 8.5 RF: 0 ascorbic acid (vitamin C) [Vitamin C] 500 mg Tablet 500 mg PO BID 30 Days Qty: 60 RF: 0 benzonatate 100 mg Capsule 100 mg PO TID PRN (Reason: Cough) 15 Days Qty: 45 RF: 0 docusate sodium 100 mg Capsule 100 mg PO BID 30 Days Qty: 60 RF: 0 polyethylene glycol 3350 17 gram Powder In Packet 17 g PO DAILY 30 Days Qty: 30 RF: 0 pantoprazole 40 mg Tablet,Delayed Release (Dr/Ec) 40 mg PO DAILY 30 Days Qty: 30 RF: 0 zinc gluconate 50 mg Tablet 50 mg PO DAILY 30 Days Qty: 30 RF: 0 atorvastatin 40 mg tablet 40 mg PO QAM RF: 0 Aspir-81 81 mg Tablet,Delayed Release (Dr/Ec) 81 mg PO QAM RF: 0 ibuprofen 200 mg Tablet 400 mg PO Q4H PRN (Reason: fever/pain) RF: 0 Prilosec 20 mg Capsule,Delayed Release(Dr/Ec) 20 mg PO DAILY RF: 0 Vitamin D3 25 mcg (1,000 unit) Capsule 25 mcg PO QAM RF: 0 Spiriva with HandiHaler 18 mcg Capsule, W/Inhalation Device 1 cap INHALATION DAILY RF: 0 Advair Diskus 250-50 mcg/dose blister with device 2 inh INHALATION BID RF: 0 Patient Instructions: Opioid Safety Transfer Attestations Time Spent in Transfer Care*: greater than 30 min Quality Metrics Clinical Quality Measures: During this hospital stay, did patient experience: None Coding Level of Care Code Acute Client Partner for Chg Fwd Diagnoses Shoulder pain M25.519 Arm DVT (deep venous thromboembolism), acute I82.622 Laterality: left Thrombocytopenia D69.6 MRSA bacteremia R78.81; B95.62
[2020-12-14] MEDS: lidocaine 5% Patch 1 PATCH TOPICAL (21:44)
== END 2020-12-14 21:30 | disposition short-term general hospital (02) | DRG 300 ==
LOC: ER 21:23 → MS 2A 22:37 → MEDSURG 12-11 12:43
PROVIDERS: Hospitalist; Admitting Provider Student in an Organized Health Care Education/Training Program; Emergency Provider Emergency Medicine; Visit Provider Internal Medicine
DX: I82.622 Acute embolism and thrombosis of deep veins of left upper extremity (principal); R78.81 Bacteremia; M00.9 Pyogenic arthritis, unspecified; I82.A12 Acute embolism and thrombosis of left axillary vein; K21.9 Gastro-esophageal reflux disease without esophagitis; D69.6 Thrombocytopenia, unspecified; B95.61 Methicillin susceptible Staphylococcus aureus infection as the cause of diseases classified elsewhere; F17.210 Nicotine dependence, cigarettes, uncomplicated; I10 Essential (primary) hypertension; R21 Rash and other nonspecific skin eruption; Z79.82 Long term (current) use of aspirin; Z86.16 Personal history of COVID-19; Z86.19 Personal history of other infectious and parasitic diseases
CPT/HCPCS: 10030; 20611; 36415; 36430; 71045; 71275; 73220; 76882; 80053; 80202; 80500; 82550; 83605; 83880; 84145; 84484; 85025; 85362; 85378; 85384; 85610; 85730; 86900; 87040; 87070; 87075; 87077; 87186; 87205; 88112; 88305; 89050; 93005; 93306; 93971; 94640; 96365; 96367; 96375; 97110; 97166; 99285; A4565; A9577; J0696; J1644; J1956; J2270; J2405; J3010; J3370; J7030; J7050; J7626; P9035; Q9967